=== PATIENT | female | born 1970 | race Caucasian/White ===

== ENCOUNTER 2016-09-23 11:56 | Inpatient (IN) | payer OTHER ==
[~2016-09-23] VITALS: Ht 170.2 cm; Wt 59.4 kg
[~2016-09-23 11:56] MED LIST: /QUET25TA PO; ALBUPOW9 INH; ALBUTEROL NEB INH; ALBUTEROL SULFATE INH; AZIT250T PO; FLU; IBUP600T26 PO; LEVO750T PO; NICO14PA EXT; NICO21DI26 EXT; PAXI20TA3 PO; PAXI40TA2 PO; PERC10TA17 PO; PERC5TAB6 PO; PRED10TA2 PO; PRED20TA PO; PROAAER IN; PROZ10CA7 PO; RISP0.5T23 PO; RISP4TAB33 PO; ROBITUSSIN COLD; SILV-4 TOP; TRAZ50TA2 PO; WELL150T PO; XANA0.25 PO; ZITHTAB PO
[2016-09-23] MEDS ORDERED: ONDANSETRON 4MG/2ML VIAL (J2405) As Ordered ONE ×2 (12:19→16:33)
[2016-09-23 12:44] LABS: MEAN CORPUSCULAR HEMOGLOBIN 33.9 pg (27.0-33.0); MEAN CORPUSCULAR HGB CONC 34.8 g/dl (32.0-36.5); MEAN CORPUSCULAR VOLUME 97.4 fl (80.0-96.0); PLATELET COUNT, AUTOMATED 217 k/mm3 (150-450); RED CELL DISTRIBUTION WIDTH 15.2 % (11.5-14.5); WHITE BLOOD COUNT 1.1 K/mm3 (4.0-10.0)
[2016-09-23 13:00] LABS: ALBUMIN 4.2 GM/DL (3.2-5.2); ALKALINE PHOSPHATASE 80 U/L (45-117); ALT/SGPT 21 U/L (12-78); ANION GAP 10 MEQ/L (8-16); AST/SGOT 10 U/L (15-37); BILIRUBIN,DIRECT 0.2 MG/DL (0.0-0.2); BILIRUBIN,TOTAL 0.8 MG/DL (0.2-1.0); BLOOD UREA NITROGEN 16 MG/DL (7-18); CALCIUM LEVEL 9.1 MG/DL (8.5-10.1); CARBON DIOXIDE LEVEL 26 MEQ/L (21-32); CHLORIDE LEVEL 109 MEQ/L (98-107); CREATININE FOR GFR 0.86 MG/DL (0.55-1.02); GLOMERULAR FILTRATION RATE > 60.0 (>58); GLUCOSE, FASTING 152 MG/DL (70-105); POTASSIUM SERUM 3.5 MEQ/L (3.5-5.1); SODIUM LEVEL 145 MEQ/L (136-145)
[2016-09-23 13:07] LABS: ANISOCYTOSIS 1+; PLATELET CLUMPS SMALL AMT
[2016-09-23] MEDS ORDERED: ALBU17IN INH (17:05)
[2016-09-23] MEDS ORDERED: ADVI200C5 PO (17:05)
[2016-09-23] MEDS ORDERED: PAXI40TA2 PO (17:05)
[2016-09-23] MEDS ORDERED: IBUPROFEN 400 MG TAB PO PRN (17:30)
[2016-09-23] MEDS ORDERED: ALBUTEROL 90 MCG/ACT 8GM HFA INHALER INH PRN (17:30)
--- NOTE | 2016-09-23 18:21 | HPEPDOC ---
General Date of Admission 09-23-2016 Chief Complaint The patient is a 45-year-old female admitted with a reason for visit of N/V. Source: Patient, Family Severity: Severe History of Present Illness Ms Landeros is a 45 y/o female with past medical history of COPD, cervical CA, depression, psoriasis, daily marijuana use and history of crack cocaine use/abuse who presents this afternoon after she states she became nauseous and dizzy acutely while at home. The pt also states that she began having loose stool episodes as well at this time. She states that she had between 5-10 vomiting episodes of bilious vomitus before coming to the ED., she denied passing out or LOC, but said she felt as though the room was spinning. Denies recent travel or change in diet. She denied having any abdominal pain at time of dizziness this afternoon, but admitted to some diffuse achy abdominal pain on bedside exam she attributed to vomiting episodes, and of being very nauseous. The pt did just finish her last round of chemotherapy/radiation one week prior, and is total s/p 5 chemo and 25 radiation treatments. She states that this similar episode occurred about 3 weeks prior. She admits to some muscle aches over the past few days but denies having a fever, admits to waking up sweaty at night as well for the past couple days, but denies any recent sick contacts. Pt sees Breana Carbajal as her PCP. 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 Surgical History cervical biopsy Family History Significant Family History: No pertinent family hx Social History * Smoker: other (smokes marijuana daily) Drugs: denies, cocaine (states has not done cocaine in past 5 years) Recent Travel/Sick Contacts: Denies: Recent sick contacts, Recent travel Social History lives with boyfriend in [facility] history of extensive illicit drug use Review of Symptoms Constitutional: Reports: Fatigue, Lethargy, Malaise, Night Sweats, Denies: Chills, Fever, Weakness, Weight Loss Eyes: Denies: Conjunctivae inflammation, Eyelid inflammation, Pain, Vision change ENT: Denies: Head Aches Skin: Denies: Bruising, Jaundice, Lesions, Rash Pulmonary: Denies: Cough, Dyspnea, Pleuritic Chest Pain Cardiovascular: Reports: Lt Headedness, Denies: Chest Pain, Edema, Orthopnea, Palpitations, Paroxysmal Noc. Dyspnea Gastrointestinal: Reports: Abdominal Pain (diffuse, achy from vomiting the pt states), Diarrhea, Nausea, Vomiting, Denies: Constipation Genitourinary: Denies: Dysuria Neurological: Denies: Change in speech, Confusion, Incoordination, Numbness, Weakness Psych: Reports: Mood Normal Physical Examination General Exam: Positive: Alert, Moderate Distress, Negative: Cooperative (pt does not seem to want to answer questions as feels very sick to her stomach) Eye Exam: Positive: Conjunctiva & lids normal, EOMI, PERRLA, Negative: Ptosis, Sclera icteric ENT Exam: Positive: Atraumatic, Mucous membr. moist/pink, Nares Patent, Pharynx Normal, Tongue Midline, Negative: Pharyngeal Edema Neck Exam: Positive: Supple Chest Exam: Positive: Clear to auscultation, Normal air movement, Negative: Rales, Rhonchi, Wheezing Heart Exam: Positive: Normal S1, Normal S2, Rate Normal, Regular Rhythm Telemetry: Positive: No significant arrhythmia Abdomen Exam: Positive: Normal bowel sounds, Soft, Negative: Hepatospenomegaly, Mass, Tenderness Extremity Exam: Negative: Clubbing, Cyanosis, Edema Skin Exam: Positive: Nl turgor and temperature, Negative: Breakdown, Rash Psych Exam: Positive: Mental status NL Vital Signs BP 122/64 hr 96 rr 20 temp 98.6 F 100% on pulse ox. Laboratory Data Labs 24H Laboratory Tests 2 09/23/16 12:25: Aspartate Amino Transf (AST/SGOT) 10L, Alanine Aminotransferase (ALT/SGPT) 21, Alkaline Phosphatase 80, Total Bilirubin 0.8, Direct Bilirubin 0.2, Albumin 4.2 , Albumin/Globulin Ratio 1.50, Anion Gap 10, Anisocytosis 1+, Atypical Lymphocytes 7H, White Blood Count 1.1L, Red Blood Count 3.62L, Hemoglobin 12.2, Hematocrit 35.2L, Mean Corpuscular Volume 97.4H, Mean Corpuscular Hemoglobin 33.9H, Mean Corpuscular Hemoglobin Concent 34.8, Red Cell Distribution Width 15.2H, Platelet Count 217, Neutrophils (%) (Auto) , Lymphocytes (%) (Auto) , Monocytes (%) (Auto) , Eosinophils (%) (Auto) , Basophils (%) (Auto) , Neutrophils # (Auto) , Lymphocytes # (Auto) , Monocytes # (Auto) , Eosinophils # (Auto) , Basophils # (Auto) , Calcium Level 9.1, Clumped Platelets SMALL AMT, Glomerular Filtration Rate > 60.0, Large Unclassified Cells # , Large Unclassified Cells % , Lymphocytes (Manual) 10L, Neutrophils 83H, Platelet Estimate NORMAL, Total Protein 7.0 CBC/BMP Laboratory Tests 09/23/16 12:25 Red Blood Count 3.62 L, Mean Corpuscular Volume 97.4 H, Mean Corpuscular Hemoglobin 33.9 H, Mean Corpuscular Hemoglobin Concent 34.8, Red Cell Distribution Width 15.2 H, Neutrophils (%) (Auto) , Lymphocytes (%) (Auto) , Monocytes (%) (Auto) , Eosinophils (%) (Auto) , Basophils (%) (Auto) , Neutrophils # (Auto) , Lymphocytes # (Auto) , Monocytes # (Auto) , Eosinophils # (Auto) , Basophils # (Auto) (1) Enteritis Status: Acute Response to Treatment: Stable Assessment & Plan: likely 2/2 viral etiology or radiation/chemotherapy therapy will control pts vomiting with IV zofran pt clear liquids for right now, advance diet as tolerated (2) Leukopenia Status: Acute Response to Treatment: Stable Assessment & Plan: most likely 2/2 cervical cancer treatment continue to monitor no fever documented will obtain blood and urine cx as pt is immunosuppressed from CA treatments (3) Cervical cancer Status: Chronic Response to Treatment: Stable Assessment & Plan: pt. follows with oncology in [facility] is s/p 5 chemotherapy and 25 radiation treatments (4) Vomiting Status: Acute Response to Treatment: Stable Assessment & Plan: pt received IV Zofran in ED, will schedule on floor pt states she feels dry- given hx of diarrhea and vomiting, will begin NS at 100 mL full liquid diet- advance as pt tolerates (5) Depression Status: Chronic Response to Treatment: Stable, Uncontrolled Assessment & Plan: continue pts home medication (6) DVT prophylaxis Status: Acute Assessment & Plan: lovenox Plan / VTE VTE Prophylaxis Ordered?: Yes GME ATTESTATION GME ATTESTATION My preceptor for this patient encounter was physically present in the building during the encounter and was fully available. As needed, all aspects of the patient interview, examination, medical decision making process, and medical care plan development were reviewed and approved by the preceptor. Preceptor is aware and concurs with the plan as stated in the body of this note and will attest to such by his/her cosignature. ATTENDING NOTE I have seen and examined the above patient, and agree with the plan as documented by Dr. Aj. KRISTAN AJ DO Sep 23, 2016 18:21 EDIE PARIS Sep 25, 2016 17:53
[2016-09-23 20:40] VITALS: BP 118/84
--- NOTE | 2016-09-23 20:44 | EDDOCDS ---
Physician Documentation [facility] Name: Debi Landeros Age: 45 yrs Sex: Female : 1970 Arrival Date: 09/23/2016 Time: 11:56 Bed 8 Private MD: Breana Carbajal Disposition: 09/23 16:00 Critical Care: Critical care not applicable. pc Disposition: 09/23/16 16:40 Hospitalization ordered by Deepti Drummond for Inpatient Admission. 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 - Bed requested for 4 Raymond. - Status is Inpatient Admission. ko2 - Condition is Stable. - Problem is new. - Symptoms have improved. - Notes: Return to the ED for any fever over 100.4F HPI: 12:53 This 45 yrs old Female presents to ER via Ambulance with complaints of pc Nausea/Vomiting. 12:53 The history is obtained from the patient. She developed n/v/d late last evening and can pc not keep anything down. She has not taken any of her antiemetic meds she has at home. 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 She has not needed any Neulasta through her treatments. She has not had any fevers or chills, denies Resp or symptoms. At their worst, the symptoms were moderate. In the emergency department, the symptoms are moderate. The patient has not experienced similar symptoms in the past. The patient has been recently seen by an oncologist. Historical: - Allergies: no known allergies; - Home Meds: 1. albuterol sulfate 90 mcg/actuation Inhl HFAA as needed 2. Paxil 40 mg Oral tab 1 tab once daily 3. Advil 200 mg Oral tab 800 mg as needed (Last dose: Unknown) - PMHx: COPD; Crack Cocaine and Marijuana abuse; Depression; Psoriasis; Cancer, Cervix; Cancer, Ovarian- Left; - PSHx: none; - The history from nurses notes was reviewed: and elements of the historical information I have obtained differs from that reported to nursing. - Social history: Smoking status: Patient uses tobacco products, current every day smoker. No barriers to communication noted, The patient speaks fluent Tunisian, Speaks appropriately for age. - : The pt / caregiver states he / she is not on anticoagulants. Home medication list is obtained from the patient. - Hospitalizations: : No recent hospitalization is reported. - Exposure Risk Screening:: None identified. - Immunization history:: All immunizations up-to-date. - Family history: Not pertinent. - Social history:: the patient smokes cigarettes the patient drinks alcohol, the patient uses illicit drugs, including marijuana, cocaine. 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 pc Exam: 12:58 General Appearance: alert, the patient is in mild distress. pc 12:58 EENT: normal eye inspection, ears, nose and throat normal, mucous membranes dry. 12:58 Neck: The exam reveals no acute abnormalities. ROM is normal and painless. No nuchal rigidity is noted.. 12:58 Respiratory: no respiratory distress, normal breath sounds, chest non-tender. 12:58 CVS: regular rhythm, normal S1 and S2, no murmurs, strong peripheral pulses, normal capillary refill, the patient is tachycardic, at 114 bpm. 12:58 Abdomen: soft, no organomegaly, normal bowel sounds, mild tenderness in the right lower quadrant and left lower quadrant, without rebound, voluntary guarding is not appreciated, involuntary guarding is not appreciated. 12:58 Back: normal inspection. 12:58 Skin: skin color is normal, warm, dry. 12:58 Extremities: The extremities have a grossly normal appearance, are non-tender, without acute ROM abnormalities. 12:58 Neuro: oriented x 3, cranial nerves normal as tested, no motor deficits, no sensory deficits. 12:58 Psych: normal mood. Vital Signs: 12:06 BP 122 / 64; Pulse 116; Resp 20; Temp 98.6(TE); Pulse Ox 100% on R/A; Weight 61.23 kg / dsf 134.99 lbs; Height 5 ft. 7 in. (170.18 cm); Pain 7/10; 12:07 BP 122 / 64 (auto/); jf3 12:09 Pulse 106 MON; Pulse Ox 98% ; jf3 12:20 Pulse 102 MON; Pulse Ox 96% ; jf3 12:34 BP 118 / 73 (auto/); jf3 12:49 BP 99 / 61 (auto/); jf3 12:51 Pulse 96 MON; Pulse Ox 93% ; jf3 13:04 BP 100 / 64 (auto/); jf3 13:04 Pulse 94 MON; Pulse Ox 95% ; jf3 13:18 Pulse 100 MON; Pulse Ox 94% ; jf3 13:19 BP 117 / 59 (auto/); jf3 13:23 Pulse 108 MON; Pulse Ox 99% ; jf3 13:34 BP 99 / 54 (auto/); jf3 13:49 BP 97 / 55 (auto/); jf3 13:53 Pulse 100 MON; Pulse Ox 96% ; jf3 13:53 Temp 98.6; jf3 14:04 BP 94 / 53 (auto/); jf3 14:04 Pulse 98 MON; Pulse Ox 94% ; jf3 14:19 BP 97 / 57 (auto/); jf3 14:19 Pulse 98 MON; Pulse Ox 93% ; jf3 14:49 BP 104 / 62 (auto/); jf3 14:49 Pulse 92 MON; Pulse Ox 95% ; jf3 15:18 BP 106 / 65 LA Supine (auto/); Pulse 97; jf3 15:18 BP 103 / 59 LA Sitting (auto/); Pulse 98; jf3 15:18 BP 109 / 63 LA Standing (auto/); Pulse 105; jf3 15:19 BP 111 / 64 (auto/); jf3 15:19 Pulse 90 MON; jf3 15:32 Temp 98.8(O); jf3 15:49 BP 101 / 72 (auto/); jf3 15:49 Pulse 94 MON; jf3 16:00 Temp 98.8(O); jf3 16:19 BP 101 / 59 (auto/); jf3 16:20 Pulse 92 MON; jf3 16:29 BP 143 / 73 (auto/); jf3 16:30 Pulse 86 MON; jf3 16:49 BP 151 / 76 (auto/); jf3 16:50 Pulse 74 MON; Pulse Ox 96% ; jf3 19:44 BP 96 / 54; Pulse 95; Resp 20; Temp 99.0; Pulse Ox 96% ; Pain 5/10; kb5 19:50 BP 114 / 66; kb5 20:02 BP 114 / 66; Pulse 90; Resp 20; Temp 99; Pulse Ox 96% ; Pain 5/10; ko2 12:06 Body Mass Index 21.14 (61.23 kg, 170.18 cm) dsf 15:18 Dr Whitman aware of ortho VS jf3 16:00 Dr Whitman aware jf3 MDM: 12:18 IV Saline Lock ordered. pc 12:18 NS 0.9% 1000 ml IV at bolus once ordered. pc 12:18 Ondansetron 4 mg IVP once ordered. pc 12:18 Stool samples ordered. pc 12:19 CBC with Diff Ordered. EDMS 12:19 MED Profile Ordered. EDMS 12:19 Liver Profile Ordered. EDMS 12:46 DIFFERENTIAL NO CHARGE Ordered. EDMS 12:46 PLATELET ESTIMATE Ordered. EDMS 12:58 Differential Diagnosis: nausea, vomiting and diarrhea; immunocompromised; chronic pain. pc Plan: labs, meds, IVF. 13:00 [facility] Payment Agreement was scanned into [employer] and attached to record. [id number] 13:01 Financial registration complete. dm19 13:30 CBC with Diff Reviewed. pc 13:30 MED Profile Reviewed. pc 13:30 Liver Profile Reviewed. pc 13:30 PLATELET ESTIMATE Reviewed. pc 13:31 Repeat Temperature - Oral: Inform provider of result ordered. pc 13:31 NS 0.9% 1000 ml IV at bolus once ordered. pc 14:05 Data reviewed: The patient's [facility] records were accessed, as they were informed. pc 16:00 Data reviewed: old medical records, vital signs, nurses notes, lab test results. Test pc interpretation: LAB - all labs as ordered have been reviewed, interpreted and considered in the overall management of the clinical presentation;. The patient has been re-examined and re-evaluated. The patient's symptoms have markedly improved after treatment, with no further n/v/d, her pulse is below 100. Physician consultation: Dr. Debbi Denis regarding patient's condition, and advises the medications/treatment as provided. and agrees with the treatment provided and advises the discharge plans as outlined. Disposition: The historical points, examination findings, and any diagnostic results supporting the provided diagnosis, were discussed with the patient or legal guardian. The need for outpatient follow up with the provider listed on their discharge instructions was discussed. They were encouraged to return to [facility], or the nearest ED, if symptoms worsen/persist, or for any other questions/concerns. 16:33 ED course: Despite her vital signs normalizing and she is able to tolerate oral fluids, pc the patient feels she needs to be admitted. The Hospitalist will be contacted. . 16:37 Physician consultation: Dr. Deepti Drummond was contacted at 16:38, regarding pc admission, and will see patient in ED, shortly. Disposition: The historical points, examination findings, and any diagnostic results supporting the provided diagnosis, were discussed with the patient or legal guardian. The need for further work-up and/or treatment in the hospital was explained. 16:43 Ondansetron 4 mg IVP once ordered. pc 16:45 BED REQUEST+ADM ordered. EDMS 17:46 FULL LIQUIDS DIET ordered. EDMS 17:48 BLOOD CULTURES Ordered. EDMS 17:48 GASTROINTESTINAL (GI) PANEL Ordered. EDMS 17:48 URINE CULTURE Ordered. EDMS 18:28 Admission / Observation Status ordered. EDMS 19:32 COMPLETE BLOOD COUNT Ordered. EDMS 19:32 COMPLETE COMPHRENSIVE METABOLI Ordered. EDMS Administered Medications: 12:30 Drug: NS 0.9% 1000 ml [sodium chloride 0.9 % injection solution] Route: IV; Rate: jf3 bolus; Site: right antecubital; 13:53 Follow up: Temp 98.6; IV Status: Completed infusion; IV Intake: 1000ml jf3 12:31 Drug: Ondansetron 4 mg [ondansetron HCl 2 mg/mL intravenous solution (2 mL)] Route: jf3 IVP; Site: right antecubital; 13:53 Follow up: Response: Nausea is decreased jf3 13:53 Drug: NS 0.9% 1000 ml [sodium chloride 0.9 % injection solution] Route: IV; Rate: jf3 bolus; Site: right antecubital; 15:33 Follow up: IV Status: Completed infusion; IV Intake: 1000ml jf3 16:47 Drug: Ondansetron 4 mg [ondansetron HCl 2 mg/mL intravenous solution (2 mL)] Route: jf3 IVP; Site: right antecubital; Signatures: Dispatcher [employer] EDMS Cody Whitman MD MD pc Lopresti, Mary-Elizabeth, Distillation Operator Unit ml3 Regina Almaguer RN RN dsf Afua Courtney RN RN ko2 Charmaine Perez [id number] Suresh Paredes RN jf3 The chart was reviewed and I authenticate all verbal orders and agree with the evaluation and treatment provided.Corrections: (The following items were deleted from the chart) 17:48 17:46 GASTROINTESTINAL (GI) PANEL ordered. EDMS EDMS 18:02 12:19 NOTHING BY MOUTH+DIET ordered. EDMS EDMS 18:02 17:20 CLEAR LIQUID+DIET ordered. EDMS EDMS Attachments: 13:00 [facility] Payment Agreement [email or web address] [email or web address]
--- NOTE | 2016-09-23 20:44 | EDDOCDS ---
Nurse's Notes [facility] Name: Debi Landeros Age: 45 yrs Sex: Female : 1970 Arrival Date: 09/23/2016 Time: 11:56 Bed 8 Private MD: Breana Carbajal Diagnosis: Other viral enteritis;Dehydration;Malignant neoplasm of cervix uteri-metastatic to left ovary;Decreased white blood cell count-without absolute neutropenia, ANC 913 Presentation: 09/23 12:00 Presenting complaint: EMS states: N/V/D and dizziness for the past 12 hours. pt does dsf haver cervical Cancer and did receive her last treatment 1 week ago. Adult Sepsis Screening: Suicide/Homicide risk assessment- the patient denies having any suicidal and/or homicidal ideations and does not present with any other emotional, behavioral or mental health complaints. 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 Transition of care: patient was not received from another setting of care. 12:00 Acuity: MICHELLE Level 3 dsf 12:00 Method Of Arrival: Ambulance dsf 20:22 Adult Sepsis Screening: Patient's respiratory rate is less than 22. Systolic blood ko2 pressure is greater than 100. Patient has a qSOFA score of 0- Negative Sepsis Screen. Triage Assessment: 12:06 General: Appears ill, Behavior is appropriate for age. Pain: Location: abdomen Pain dsf currently is 7 out of 10 on a pain scale. Quality of pain is described as discomfort. HIV screening NA for this visit Offered previously. GI: Pt is actively vomiting clear fluid, Reports diarrhea, nausea, vomiting. Derm: Skin is pale. HOSPICE VOLUNTEER: 12:06 LMP N/A - Post-menopause dsf Historical: - Allergies: no known allergies; - Home Meds: 1. albuterol sulfate 90 mcg/actuation Inhl HFAA as needed 2. Paxil 40 mg Oral tab 1 tab once daily 3. Advil 200 mg Oral tab 800 mg as needed (Last dose: Unknown) - PMHx: COPD; Crack Cocaine and Marijuana abuse; Depression; Psoriasis; Cancer, Cervix; Cancer, Ovarian- Left; - PSHx: none; - The history from nurses notes was reviewed: and elements of the historical information I have obtained differs from that reported to nursing. - Social history: Smoking status: Patient uses tobacco products, current every day smoker. No barriers to communication noted, The patient speaks fluent Belgian, Speaks appropriately for age. - : The pt / caregiver states he / she is not on anticoagulants. Home medication list is obtained from the patient. - Hospitalizations: : No recent hospitalization is reported. - Exposure Risk Screening:: None identified. - Immunization history:: All immunizations up-to-date. - Family history: Not pertinent. - Social history:: the patient smokes cigarettes the patient drinks alcohol, the patient uses illicit drugs, including marijuana, cocaine. Screenin:14 Screening information is obtained from the patient. Fall risk: No risks identified. ko2 Assistance ADL's: requires no assistance with activities of daily living. Abuse/DV Screen: The patient / caregiver reports he/she is: not in a situation that causes fear, pain or injury. Nutritional screening: No deficits noted. Advance Directives: Currently, there is no health care proxy. There is no active DNR order. There is no living will. There is no Power of Manager Continuous Improvement. home support is adequate. Assessment: 12:57 Adult Sepsis Screening: The patient does not have new or worsening altered mentation. jf3 Patient's respiratory rate is less than 22. Systolic blood pressure is greater than 100. Patient has a qSOFA score of 0- Negative Sepsis Screen. General: Appears ill, Behavior is cooperative, quiet. Pain: Location: abdomen. Neurological: Level of Consciousness is awake, alert, Oriented to person, place, time. Cardiovascular: Capillary refill < 3 seconds Heart tones S1 S2 present Chest pain is denied. Respiratory: Airway is patent Respiratory effort is even, unlabored, Respiratory pattern is regular, symmetrical, Breath sounds are clear bilaterally. GI: Abdomen is non- distended Bowel sounds present X 4 quads. Abd is soft X 4 quads Abd is tender to palpation X 4 quads. Derm: Skin is pale. 14:00 General: Appears ill, Behavior is cooperative, pt states she is feeling much better at jf3 this time. does not feel need to have BM. Neurological: Level of Consciousness is awake, alert, Oriented to person, place, time. Cardiovascular: Capillary refill < 3 seconds Chest pain is denied. Respiratory: Airway is patent Respiratory effort is even, unlabored, Respiratory pattern is regular, symmetrical, Denies shortness of breath. Derm: Skin is pale. 15:00 General: Appears in no apparent distress, comfortable, Behavior is cooperative. jf3 General: Pt states she is feeling much better and feels like she could go home. Nausea decreased. Skin color improved. Pt denies dizziness/light headed-ness. Neurological: Level of Consciousness is awake, alert, Oriented to person, place, time. 16:00 General: Appears in no apparent distress, comfortable, Behavior is cooperative. jf3 Respiratory: Airway is patent Respiratory effort is even, unlabored, Respiratory pattern is regular, symmetrical. 16:49 General: Appears ill, Pt up to bedside commode, states feeling nauseous, sweaty, and jf3 "just like I did when I came in", Dr Whitman made aware. Pt states she wants to be admitted and that if she goes home she is likely to return due to not feeling well. Pain: Location: abdomen Pain currently is 8 out of 10 on a pain scale. Neurological: Level of Consciousness is awake, alert, Oriented to person, place, time. Cardiovascular: Capillary refill < 3 seconds. Respiratory: Airway is patent Respiratory effort is even, unlabored, Respiratory pattern is regular, symmetrical. Derm: Skin is clammy. 18:00 General: Appears ill, Pt resting supine on stretcher. Still states does not feel well. jf3 Pt clammy and nauseous. SO at bedside. respirations easy and unlabored. call light in reach. Will continue top monitor . 19:13 General: Appears in no apparent distress, comfortable, Behavior is cooperative. Pain: ko2 Location: right lower quadrant Pain currently is 4 out of 10 on a pain scale. Neurological: No deficits noted. Respiratory: Airway is patent Respiratory effort is even, unlabored, Respiratory pattern is regular, symmetrical. Derm: Skin is pale. 20:21 General: Appears in no apparent distress, comfortable, Behavior is cooperative. ko2 Neurological: Level of Consciousness is awake, alert, Oriented to person, place, time. Respiratory: Airway is patent Respiratory effort is even, unlabored. Derm: Skin is pale. Vital Signs: 12:06 BP 122 / 64; Pulse 116; Resp 20; Temp 98.6(TE); Pulse Ox 100% on R/A; Weight 61.23 kg; dsf Height 5 ft. 7 in. (170.18 cm); Pain 03/26; 12:07 BP 122 / 64 (auto/); jf3 12:09 Pulse 106 MON; Pulse Ox 98% ; jf3 12:20 Pulse 102 MON; Pulse Ox 96% ; jf3 12:34 BP 118 / 73 (auto/); jf3 12:49 BP 99 / 61 (auto/); jf3 12:51 Pulse 96 MON; Pulse Ox 93% ; jf3 13:04 BP 100 / 64 (auto/); jf3 13:04 Pulse 94 MON; Pulse Ox 95% ; jf3 13:18 Pulse 100 MON; Pulse Ox 94% ; jf3 13:19 BP 117 / 59 (auto/); jf3 13:23 Pulse 108 MON; Pulse Ox 99% ; jf3 13:34 BP 99 / 54 (auto/); jf3 13:49 BP 97 / 55 (auto/); jf3 13:53 Pulse 100 MON; Pulse Ox 96% ; jf3 13:53 Temp 98.6; jf3 14:04 BP 94 / 53 (auto/); jf3 14:04 Pulse 98 MON; Pulse Ox 94% ; jf3 14:19 BP 97 / 57 (auto/); jf3 14:19 Pulse 98 MON; Pulse Ox 93% ; jf3 14:49 BP 104 / 62 (auto/); jf3 14:49 Pulse 92 MON; Pulse Ox 95% ; jf3 15:18 BP 106 / 65 LA Supine (auto/); Pulse 97; jf3 15:18 BP 103 / 59 LA Sitting (auto/); Pulse 98; jf3 15:18 BP 109 / 63 LA Standing (auto/); Pulse 105; jf3 15:19 BP 111 / 64 (auto/); jf3 15:19 Pulse 90 MON; jf3 15:32 Temp 98.8(O); jf3 15:49 BP 101 / 72 (auto/); jf3 15:49 Pulse 94 MON; jf3 16:00 Temp 98.8(O); jf3 16:19 BP 101 / 59 (auto/); jf3 16:20 Pulse 92 MON; jf3 16:29 BP 143 / 73 (auto/); jf3 16:30 Pulse 86 MON; jf3 16:49 BP 151 / 76 (auto/); jf3 16:50 Pulse 74 MON; Pulse Ox 96% ; jf3 19:44 BP 96 / 54; Pulse 95; Resp 20; Temp 99.0; Pulse Ox 96% ; Pain 5/10; kb5 19:50 BP 114 / 66; kb5 20:02 BP 114 / 66; Pulse 90; Resp 20; Temp 99; Pulse Ox 96% ; Pain 5/10; ko2 12:06 Body Mass Index 21.14 (61.23 kg, 170.18 cm) dsf 15:18 Dr Whitman aware of ortho VS jf3 16:00 Dr Whitman aware jf3 Vitals: 12:06 Log In Time N/A - ambulance arrival. dsf ED Course: 11:57 Patient visited by Luz Alberts PCA. ar3 11:57 Patient moved to Waiting ar3 11:58 Michael Hammer, TESS is Primary Nurse. ar3 11:58 Breana Carbajal is Private Physician. ar3 11:58 Patient moved to 8 ar3 12:01 Triage Initiated dsf 12:09 Patient visited by Gricelda Perales PCA. ct3 12:09 Cody Whitman MD is Attending Physician. pc 12:09 Patient has correct armband on for positive identification. Placed in gown. Bed in low ct3 position. Call light in reach. Side rails up X2. flower arranger on. Pulse ox on. NIBP on. 12:16 Patient visited by Cody Whitman MD. pc 12:57 The patient / caregiver is instructed regarding the plan of care and ED course. jf3 12:57 Inserted saline lock: 20 gauge in right antecubital area The patient tolerated the jf3 procedure well. No procedures done that require assistance. 12:59 Patient visited by Suresh Paredes RN. jf3 13:00 [facility] Payment Agreement was scanned into [employer] and attached to record. [id number] 13:18 DIFFERENTIAL NO CHARGE Sent. ar3 13:59 Patient visited by Cody Whitman MD. pc 14:34 Patient visited by Ozzy Clayton. dem1 14:34 Cleaned of incontinence. Linen changed. dem1 15:11 Patient visited by Gricelda Perales PCA. ct3 15:21 Patient visited by Suresh Paredes RN. jf3 15:33 Patient visited by Suresh Paredes RN. jf3 16:03 Lorene Rivers is Referral Physician. pc 16:40 Abram Drummond is Hospitalizing Provider. pc 16:40 Hospitalizing Provider role handed off by Abram Drummond pc 16:40 Deepti Drummond is Hospitalizing Provider. pc 16:51 Patient visited by Suresh Paredes RN. jf3 18:29 Patient visited by Gricelda Perales, TEACHER OF THE HANDICAPPED. ct3 18:29 Diet: liquid diet given to patient . ct3 18:56 Afua Courtney,TESS is Primary Nurse. ko2 19:05 Patient visited by Fortino Samuels, ITZ. kb5 19:13 Patient visited by Afua Courtney RN. ko2 20:04 Primary Nurse role handed off by Michael Hammer RN jmv Administered Medications: 12:30 Drug: NS 0.9% 1000 ml [sodium chloride 0.9 % injection solution] Route: IV; Rate: jf3 bolus; Site: right antecubital; 13:53 Follow up: Temp 98.6; IV Status: Completed infusion; IV Intake: 1000ml jf3 12:31 Drug: Ondansetron 4 mg [ondansetron HCl 2 mg/mL intravenous solution (2 mL)] Route: jf3 IVP; Site: right antecubital; 13:53 Follow up: Response: Nausea is decreased jf3 13:53 Drug: NS 0.9% 1000 ml [sodium chloride 0.9 % injection solution] Route: IV; Rate: jf3 bolus; Site: right antecubital; 15:33 Follow up: IV Status: Completed infusion; IV Intake: 1000ml jf3 16:47 Drug: Ondansetron 4 mg [ondansetron HCl 2 mg/mL intravenous solution (2 mL)] Route: jf3 IVP; Site: right antecubital; Intake: 13:53 IV: 1000.00ml; Total: 1000.00ml. jf3 15:33 IV: 1000.00ml; Total: 2000.00ml. jf3 Order Results: Lab Order: CBC with Diff; SPEC'M 09/23/16 12:25 Test: WHITE BLOOD COUNT; Value: 1.1; Range: 4.0-10.0; Abnormal: Below low normal; Units: K/mm3; Status: F Test: RED BLOOD COUNT; Value: 3.62; Range: 4.00-5.40; Abnormal: Below low normal; Units: M/mm3; Status: F Test: HEMOGLOBIN; Value: 12.2; Range: 12.0-16.0; Units: g/dl; Status: F Test: HEMATOCRIT; Value: 35.2; Range: 36.0-47.0; Abnormal: Below low normal; Units: %; Status: F Test: MEAN CORPUSCULAR VOLUME; Value: 97.4; Range: 80.0-96.0; Abnormal: Above high normal; Units: fl; Status: F Test: MEAN CORPUSCULAR HEMOGLOBIN; Value: 33.9; Range: 27.0-33.0; Abnormal: Above high normal; Units: pg; Status: F Test: MEAN CORPUSCULAR HGB CONC; Value: 34.8; Range: 32.0-36.5; Units: g/dl; Status: F Test: RED CELL DISTRIBUTION WIDTH; Value: 15.2; Range: 11.5-14.5; Abnormal: Above high normal; Units: %; Status: F Test: PLATELET COUNT, AUTOMATED; Value: 217; Range: 150-450; Units: k/mm3; Status: F Test: NEUTROPHILS; Value: 83; Range: 35-75; Abnormal: Above high normal; Units: %; Status: F Test: LYMPHOCYTES; Value: 10; Range: 16-52; Abnormal: Below low normal; Units: %; Status: F Test: ATYPICAL LYMPH; Value: 7; Range: 0-5; Abnormal: Above high normal; Units: %; Status: F Test: ANISOCYTOSIS; Value: 1+; Status: F Test: PLATELET CLUMPS; Value: SMALL AMT; Status: F Lab Order: MED Profile; [facility] 09/23/16 12:25 Test: GLUCOSE, FASTING; Value: 152; Range: 70-105; Abnormal: Above high normal; Units: MG/DL; Status: F Test: BLOOD UREA NITROGEN; Value: 16; Range: 7-18; Units: MG/DL; Status: F Test: CREATININE FOR GFR; Value: 0.86; Range: 0.55-1.02; Units: MG/DL; Status: F Test: GLOMERULAR FILTRATION RATE; Value: > 60.0; Range: >58; Status: F Test: SODIUM LEVEL; Value: 145; Range: 136-145; Units: MEQ/L; Status: F Test: POTASSIUM SERUM; Value: 3.5; Range: 3.5-5.1; Units: MEQ/L; Status: F Test: CHLORIDE LEVEL; Value: 109; Range: 98-107; Abnormal: Above high normal; Units: MEQ/L; Status: F Test: CARBON DIOXIDE LEVEL; Value: 26; Range: 21-32; Units: MEQ/L; Status: F Test: ANION GAP; Value: 10; Range: 8-16; Units: MEQ/L; Status: F Test: CALCIUM LEVEL; Value: 9.1; Range: 8.5-10.1; Units: MG/DL; Status: F Test Note: ; Units are mL/min/1.73 m2 Chronic Kidney Disease Staging per NKF: Stage I & II GFR >=60 Normal to Mildly Decreased Stage III GFR 30-59 Moderately Decreased Stage IV GFR 15-29 Severely Decreased Stage V GFR <15 Very Little GFR Left ESRD GFR <15 on EMPLOYEE SERVICE OFFICER Lab Order: Liver Profile; SPEC'M 09/23/16 12:25 Test: AST/SGOT; Value: 10; Range: 15-37; Abnormal: Below low normal; Units: U/L; Status: F Test: ALT/SGPT; Value: 21; Range: 12-78; Units: U/L; Status: F Test: ALKALINE PHOSPHATASE; Value: 80; Range: 45-117; Units: U/L; Status: F Test: BILIRUBIN,TOTAL; Value: 0.8; Range: 0.2-1.0; Units: MG/DL; Status: F Test: BILIRUBIN,DIRECT; Value: 0.2; Range: 0.0-0.2; Units: MG/DL; Status: F Test: TOTAL PROTEIN; Value: 7.0; Range: 6.4-8.2; Units: GM/DL; Status: F Test: ALBUMIN; Value: 4.2; Range: 3.2-5.2; Units: GM/DL; Status: F Test: ALBUMIN/GLOBULIN RATIO; Value: 1.50; Range: 1.00-1.93; Status: F Lab Order: PLATELET ESTIMATE; SPEC'M 09/23/16 12:25 Test: PLATELET ESTIMATE; Value: NORMAL; Range: NORMAL; Status: F Outcome: 16:03 Discharge ordered by Provider. pc 16:40 Decision to Hospitalize by Provider. pc 20:23 Discharge Assessment: Patient awake, alert and oriented x 3. No cognitive and/or ko2 functional deficits noted. Patient verbalized understanding of disposition instructions. The following High Risk Discharge criteria are identified: None. Admitted to Med/Surg accompanied by tech, via stretcher, with chart. Condition: stable. Admission hand-off: Report Faxed Fax receipt verified by [facility]. Property :Personal belongings accompany Pt. 20:31 Discharge Assessment: patient administered narcotics - no. No special radiology studies cp1 were completed. 20:43 Patient left the ED. ko2 Signatures: Cody Whitman MD MD pc Fortino Samuels, TEACHER OF THE HANDICAPPED TEACHER OF THE HANDICAPPED kb5 Luz Alberts, TEACHER OF THE HANDICAPPED TEACHER OF THE HANDICAPPED ar3 Megan Blake,TRANSIT OPERATIONS SUPERVISOR TRANSIT OPERATIONS SUPERVISOR cp1 Gricelda Perales, TEACHER OF THE HANDICAPPED TEACHER OF THE HANDICAPPED ct3 Regina Almaguer RN RN dsf Ozzy Clayton dem1 Afua Courtney RN RN ko2 Suresh Paredes RN RN jf3 Derick Bettencourt, TEACHER OF THE HANDICAPPED TEACHER OF THE HANDICAPPED jmv Charmaine Perez [id number] Corrections: (The following items were deleted from the chart) 12:05 12:00 Presenting complaint: EMS states: N/V/D and dizziness for the past 12 hours. pt dsf does haver cervical Cancer and is receiving chemotherapy. Last treatment was 1 week ago dsf MTDD
[2016-09-23] MEDS: ONDANSETRON 4MG/2ML VIAL (J2405) IV SCH (20:50)
[2016-09-23] MEDS: PARoxetine 20 MG TAB PO SCH (20:50)
[2016-09-23] MEDS: NS 1,000 ML IV SCH (20:50)
[2016-09-23] MEDS: NICOTINE 21MG/24HR 1 EA TRANSDERMAL TD PRN (22:40)
[2016-09-24] MEDS: ONDANSETRON 4MG/2ML VIAL (J2405) IV SCH ×6 (00:19→21:01)
[2016-09-24] MEDS: NS 1,000 ML IV SCH ×2 (04:50→14:46)
[2016-09-24 05:20] VITALS: BP 163/81
[2016-09-24 06:23] LABS: MEAN CORPUSCULAR HEMOGLOBIN 34.4 pg (27.0-33.0); MEAN CORPUSCULAR HGB CONC 34.6 g/dl (32.0-36.5); MEAN CORPUSCULAR VOLUME 99.5 fl (80.0-96.0); RED CELL DISTRIBUTION WIDTH 16.7 % (11.5-14.5); WHITE BLOOD COUNT 5.5 K/mm3 (4.0-10.0)
[2016-09-24 06:40] LABS: ALBUMIN 3.5 GM/DL (3.2-5.2); ALBUMIN/GLOBULIN RATIO 1.46 (1.00-1.93); ALKALINE PHOSPHATASE 64 U/L (45-117); ALT/SGPT 19 U/L (12-78); ANION GAP 13 MEQ/L (8-16); AST/SGOT 13 U/L (15-37); BILIRUBIN,TOTAL 0.8 MG/DL (0.2-1.0); BLOOD UREA NITROGEN 16 MG/DL (7-18); CALCIUM LEVEL 8.3 MG/DL (8.5-10.1); CARBON DIOXIDE LEVEL 23 MEQ/L (21-32); CHLORIDE LEVEL 110 MEQ/L (98-107); CREATININE FOR GFR 0.78 MG/DL (0.55-1.02); GLOMERULAR FILTRATION RATE > 60.0 (>58); GLUCOSE, FASTING 138 MG/DL (70-105); POTASSIUM SERUM 3.3 MEQ/L (3.5-5.1); SODIUM LEVEL 146 MEQ/L (136-145); TOTAL PROTEIN 5.9 GM/DL (6.4-8.2)
[2016-09-24] MEDS: ENOXAPARIN 40 MG/0.4 ML SYRINGE (J1650) SC SCH (08:29)
[2016-09-24 14:00] VITALS: BP 127/67
[2016-09-24] MEDS: ACETAMINOPHEN TAB 650MG DOSE (2X325MG) PO PRN (14:45)
--- NOTE | 2016-09-24 16:10 | REP ---
Chest x-ray: Two views. History: Fever. Comparison chest x-rays from October 14, 2015. Findings: The lungs are well inflated and clear. Pleural angles are sharp. Heart size is normal. Pulmonary vasculature is not increased. No significant bony abnormality is seen. Impression: Negative chest x-ray. Signed by Hernando Banks MD 09/24/2016 04:02 P
[2016-09-24] MEDS: KCL 10MEQ IN D5/0.45NS 1000ML 1,000 ML IV SCH (16:27)
[2016-09-24] MEDS: CEFEPIME HCL 2 GM in D5W MINI-BAG PLUS 50 ML IV SCH (18:08)
[2016-09-24] MEDS: PARoxetine 20 MG TAB PO SCH ×2 (21:00→21:02)
[2016-09-24 22:00] VITALS: BP 126/62
[2016-09-25] MEDS: ONDANSETRON 4MG/2ML VIAL (J2405) IV SCH ×6 (01:17→20:27)
[2016-09-25] MEDS: KCL 10MEQ IN D5/0.45NS 1000ML 1,000 ML IV SCH (01:57)
[2016-09-25] MEDS: CEFEPIME HCL 2 GM in D5W MINI-BAG PLUS 50 ML IV SCH ×2 (05:49→17:05)
[2016-09-25 06:00] VITALS: BP 115/66
[2016-09-25 06:45] LABS: MEAN CORPUSCULAR HEMOGLOBIN 35.3 pg (27.0-33.0); MEAN CORPUSCULAR VOLUME 96.4 fl (80.0-96.0); RED CELL DISTRIBUTION WIDTH 15.3 % (11.5-14.5); WHITE BLOOD COUNT 4.3 K/mm3 (4.0-10.0)
[2016-09-25 06:48] LABS: MEAN CORPUSCULAR HGB CONC 36.2 g/dl (32.0-36.5)
[2016-09-25 07:07] LABS: ALBUMIN 2.8 GM/DL (3.2-5.2); ALBUMIN/GLOBULIN RATIO 1.04 (1.00-1.93); ALKALINE PHOSPHATASE 60 U/L (45-117); ALT/SGPT 20 U/L (12-78); ANION GAP 11 MEQ/L (8-16); AST/SGOT 15 U/L (15-37); BILIRUBIN,TOTAL 0.6 MG/DL (0.2-1.0); BLOOD UREA NITROGEN 10 MG/DL (7-18); CALCIUM LEVEL 7.7 MG/DL (8.5-10.1); CARBON DIOXIDE LEVEL 25 MEQ/L (21-32); CHLORIDE LEVEL 106 MEQ/L (98-107); CREATININE FOR GFR 0.66 MG/DL (0.55-1.02); GLOMERULAR FILTRATION RATE > 60.0 (>58); GLUCOSE, FASTING 110 MG/DL (70-105); SODIUM LEVEL 142 MEQ/L (136-145); TOTAL PROTEIN 5.5 GM/DL (6.4-8.2)
[2016-09-25] MEDS: ENOXAPARIN 40 MG/0.4 ML SYRINGE (J1650) SC SCH (09:25)
--- NOTE | 2016-09-25 09:55 | IPN ---
DATE: 09/24/2016 Ms. Landeros is feeling tired and sick this morning when I see her. No complaints of abdominal pain, no chest pain. Would like to try some bread. Unfortunately she has gone on to develop fever to 101.9. Most recent pulse 86, respirations 18, blood pressure 127/67, 99% on room air. Input and output notable for positive fluid balance of 540. One bowel movement thus far today. She is awake, appropriately interactive, pleasantly conversant. Breathing is symmetrical, rested. No wheezes, rales or rhonchi. Heart: Regular rate and rhythm, is not tachycardic. Abdomen: Soft, doughy, nontender. Hypoactive bowel sounds. Significant lower extremity edema. White cell count 5.5 up from 1.1, hemoglobin 9.8, platelets 155. BUN 16, creatinine 0.78, sodium 146, potassium 3.3. This is a 45-year-old with fever of unknown origin in setting of immunocompromise related to chemotherapy. PLAN: 1. Patient has been followed for enteritis. No abdominal pain on exam. Will check lipase. Will check stool studies should they become available. Patient's leukopenia has improved although I am still concerned about the possibility of immunocompromise. Will start broad spectrum antibiotics, blood cultures, chest x-ray, urinalysis and urine culture. 2. Patient has cervical cancer, followed with radiation oncology and oncology in [place]. 3. Patient has hypernatremia and hyperkalemia. Will change IV fluids but will continue those at this time. 4. Will continue her Lovenox as well.
[2016-09-25] MEDS ORDERED: KCL 10MEQ IN 100ML SWI (KRUN) 10 MEQ in APPROPRIATE DILUENT 1 EA IV ONE ×2 (12:30)
[2016-09-25] MEDS: KCL 20MEQ IN D5/NS 1000ML 1,000 ML IV SCH ×2 (12:49→22:37)
[2016-09-25] MEDS ORDERED: GASTROGRAFIN SOLUTION 30ML PO ONE (13:15)
[2016-09-25] MEDS ORDERED: GASTROGRAFIN SOLUTION 30ML (Q9963) PO ONE (13:45)
[2016-09-25 14:00] VITALS: BP 123/73
--- NOTE | 2016-09-25 14:04 | IPNPDOC ---
Progress Note This note was created in the EMR by mistake, please disregard MAKEDA MATA DO Sep 25, 2016 14:04 Subjective: Mrs. Condon was visited at the bedside this morning. She continues to complain of a headache, however she states that it was significantly improved after the administration of sumatriptan and antinausea medication this morning. Otherwise, she has no focal complaint. She does mention that she has not had a bowel movement in several days, however, she has not had a very good appetite over the past few days either. Objective: General: Awake, alert, oriented 3. She is in no acute distress at this time. She is sitting upright on the edge of the bed, and pleasant to speak with. HEENT: Head normocephalic, atraumatic, sclera are nonicteric. Hearing is grossly intact to conversation. Respiratory: Clear to auscultation bilaterally with no wheezes, rales, or rhonchi. Cardiovascular: Regular rate and rhythm, with no rubs, gallops, or murmur. Abdomen: Soft, nontender, nondistended, no hepatosplenomegaly appreciated. Bowel sounds present. Extremities: 2+ pulses in the radial and dorsalis pedis bilaterally. She did stub her toe yesterday, there is a small bit of blood on the medial aspect of the tip of her great toe on the left foot. Assessment/Plan: 1. Hypertensive emergency. Pressures continue to be elevated, however they are slowly trending downward with the administration of lisinopril, amlodipine, hydrochlorothiazide, and clonidine. To determine if this is a secondary hypertension, a renal ultrasound with Doppler flow, an echocardiogram, and a nocturnal pulse oximetry will be performed. 2. History of previous right thalamic and pontine lacunar infarcts. Likely secondary to poorly controlled blood pressure over a long period of time 3. Visual disturbance of the right eye. Seen by ophthalmology Dr. Smith, who felt that this was secondary to chronic diabetic changes, she will follow-up with him as an outpatient. 4. Poorly controlled insulin-dependent diabetes mellitus type 2. We will increase her Levemir to 15 units twice a day today, and continue to monitor 5. Chronic left foot pain, with bilateral congenital foot deformities. Well controlled at this time, she did stub her toe yesterday, however it did not hurt , we will continue to monitor. 6. Chronic kidney disease stage III. She is most likely at her baseline renal function. 7. DVT prophylaxis with Lovenox My preceptor for this patient encounter was physically present in the building during the encounter and was fully available. As needed, all aspects of the patient interview, examination, medical decision making process, and medical care plan development were reviewed and approved by the preceptor. Preceptor is aware and concurs with the plan as stated in the body of this note and will attest to such by his/her cosignature. VS, I&O, 24H, Fishbone VS, I&O, 24H, Fishbone Vital Signs Date Time Temp Pulse Resp B/P Pulse Ox O2 Delivery O2 Flow Rate FiO2 09/25/16 06:00 99.8 84 19 115/66 95 Room Air I&O- Last 24 Hours up to 6 AM 09/25/16 06:00 Intake Total 3700 ml Output Total 0 ml Balance 3700 ml Laboratory Tests 2 09/24/16 16:24: Lipase 78 09/24/16 18:16: Urine Amorphous Sediment , Urine Appearance CLOUDYH, Urine Color YELLOW, Urine pH 6.0, Urine Specific [place] 1.015, Urine Protein 2+H, Urine Glucose (UA) NEGATIVE, Urine Ketones NEGATIVE, Urine Urobilinogen 2.0H, Urine Bilirubin NEGATIVE, Urine Leukocyte Esterase 3+H, Urine Bacteria (Auto) 3+H, Urine Blood 2 +H, Urine Calcium Carbonate Cryst(Auto) , Urine Calcium Oxalate Cryst (Auto) , Urine Calcium Phosphate Cait (Auto) , Urine Cellular Casts , Urine Cystine Crystals , Urine Granular Casts (Auto) , Urine Hyaline Casts (Auto) 0, Urine Leucine Crystals , Urine Mucus (Auto) SMALL, Urine Nitrite POSITIVE, Urine Oval Fat Bodies (Auto) , Urine RBC (Auto) 38H, Urine Renal Epithelial Cells , Urine Sperm (Auto) , Urine Squamous Epithelial Cells 1, Urine Transitional Epithelial Cells , Urine Trichomonas (Auto) , Urine Triple Phosphate Cryst (Auto) , Urine Tyrosine Crystals , Urine Uric Acid Crystals (Auto) , Urine WBC (Auto) TNTCH, Urine Waxy Casts (Auto) , Urine Yeast-Like Cells (Auto) 09/25/16 06:16: Blood Urea Nitrogen 10, Creatinine 0.66, Sodium Level 142, Potassium Level 3.0L , Chloride Level 106, Carbon Dioxide Level 25, Calcium Level 7.7L, Aspartate Amino Transf (AST/SGOT) 15, Alanine Aminotransferase (ALT/SGPT) 20, Alkaline Phosphatase 60, Total Bilirubin 0.6, Total Protein 5.5L, Albumin 2.8L, Albumin/ Globulin Ratio 1.04, Anion Gap 11, Glomerular Filtration Rate > 60.0 Laboratory Tests 09/25/16 06:16 Calcium Level 7.7 L, Aspartate Amino Transf (AST/SGOT) 15, Alanine Aminotransferase (ALT/SGPT) 20, Alkaline Phosphatase 60, Total Bilirubin 0.6, Total Protein 5.5 L, Albumin 2.8 L, Red Blood Count 2.49 L, Mean Corpuscular Volume 96.4 H, Mean Corpuscular Hemoglobin 35.3 H, Mean Corpuscular Hemoglobin Concent 36.2, Red Cell Distribution Width 15.3 H Microbiology 09/24/16 Blood Culture - Preliminary, Resulted 09/24/16 Blood Culture - Preliminary, Resulted 09/23/16 Blood Culture - Preliminary, Resulted No growth after 24 hours . All specim... 09/24/16 Influenza Virus Type A Antigen - Final, Complete 09/24/16 Influenza Virus Type B Antigen - Final, Complete 09/24/16 Urine Culture, Received Pending MAKEDA MATA DO Sep 25, 2016 14:04
[2016-09-25] MEDS ORDERED: ISOVUE-370 76% 100ML VIAL (Q9967) As Ordered ONE (15:18)
[2016-09-25] MEDS: ACETAMINOPHEN TAB 650MG DOSE (2X325MG) PO PRN (17:05)
--- NOTE | 2016-09-25 17:32 | IPN ---
DATE: 09/25/2016 Ms. Landeros is tired this morning complaining of some abdominal pain, worse on the left side, she describes left-sided flank pain that radiates somewhat forward. She has been febrile overnight. Is nauseous, has not been tolerating fluids. VITAL SIGNS: Temperature is 99.8, pulse 84, respiratory rate 19, blood pressure 115/66, 95% on room air. T-max is 101.9. Ins Outs notable for a positive fluid balance of 2880. One bowel movement noted yesterday. Is awake, appropriately interactive but appears tired. Is engaged in conversation. Mucous membranes are tacky. Neck: Is supple. Breathing is symmetrical. Somewhat diminished throughput. Heart: Regular rate and rhythm. Is not tachycardiac. Abdomen: Is soft, doughy with some left-sided costovertebral angle and flank tenderness. LABORATORY DATA: White cell count 4.3, hemoglobin 8.8. Platelets of 131, sodium 143, potassium 3.0, chloride 106, bicarbonate 25, BUN 10, creatinine 0.66, with a glucose of 110. CT of the abdomen and pelvis was done and preliminary shows free fluid into the pelvis, gallbladder wall thickening, mild left hydro, 1.4 cm left upper pole renal lesion. This does not appear on a previous image. I asked the environmental remediation specialist urologist to review the images. MY ASSESSMENT IS FOLLOWS: 45-year-old with fever of unknown origin which may be related to left-sided pyelo in the setting of immunocompromise related to chemotherapy. PLAN IS FOLLOWS: 1. Infectious disease. Patient has been followed for enteritis. Now has positive blood cultures showing gram negative rods, is on appropriate therapy. There is suggestion of possible hydroureter on the left. Will review findings of the CT scan with the covering urologist. 2. Patient has cervical cancer. Follows with radiology and oncology in [place]. Is currently on therapy. 3. Patient has had continued hypokalemia which we are repleting. 4. Hypernatremia has resolved. 5. Patient has developing anemia. It is unclear the cause. She has no obvious source of bleeding. I have obtained informed consent from the patient to give blood transfusion should that become necessary.
[2016-09-25] MEDS: PARoxetine 20 MG TAB PO SCH (20:27)
[2016-09-26] VITALS (8 sets, daily range): BP systolic 110–141; BP diastolic 57–80
[2016-09-26] MEDS: ONDANSETRON 4MG/2ML VIAL (J2405) IV SCH ×6 (00:05→20:23)
[2016-09-26] MEDS: KCL 20MEQ IN D5/NS 1000ML 1,000 ML IV SCH ×2 (01:58→17:17)
[2016-09-26] MEDS: CEFEPIME HCL 2 GM in D5W MINI-BAG PLUS 50 ML IV SCH ×2 (05:12→17:17)
[2016-09-26 06:53] LABS: INR 1.24
[2016-09-26 06:56] LABS: MEAN CORPUSCULAR HEMOGLOBIN 35.3 pg (27.0-33.0); MEAN CORPUSCULAR HGB CONC 36.3 g/dl (32.0-36.5); MEAN CORPUSCULAR VOLUME 97.1 fl (80.0-96.0)
[2016-09-26 07:07] LABS: ALBUMIN 2.6 GM/DL (3.2-5.2); ALKALINE PHOSPHATASE 71 U/L (45-117); ALT/SGPT 19 U/L (12-78); ANION GAP 9 MEQ/L (8-16); AST/SGOT 14 U/L (15-37); BILIRUBIN,TOTAL 0.6 MG/DL (0.2-1.0); BLOOD UREA NITROGEN 8 MG/DL (7-18); CALCIUM LEVEL 7.8 MG/DL (8.5-10.1); CARBON DIOXIDE LEVEL 26 MEQ/L (21-32); CHLORIDE LEVEL 108 MEQ/L (98-107); CREATININE FOR GFR 0.65 MG/DL (0.55-1.02); GLOMERULAR FILTRATION RATE > 60.0 (>58); GLUCOSE, FASTING 118 MG/DL (70-105); SODIUM LEVEL 143 MEQ/L (136-145); TOTAL PROTEIN 5.5 GM/DL (6.4-8.2)
[2016-09-26] MEDS: KCL 10MEQ IN 100ML SWI (KRUN) 10 MEQ in APPROPRIATE DILUENT 1 EA IV SCH ×4 (08:40→13:39)
[2016-09-26] MEDS ORDERED: fentaNYL 100 MCG/2 ML INJECTION (J3010) As Ordered ONE (09:37)
[2016-09-26] MEDS ORDERED: MIDAZOLAM INJ 2 MG/2 ML VIAL (J2250) As Ordered ONE (09:37)
[2016-09-26 10:04] LABS: MAGNESIUM LEVEL 1.7 MG/DL (1.8-2.4)
[2016-09-26] MEDS ORDERED: LIDOCAINE 2% MDV 20 ML VIAL As Ordered ONE (10:45)
[2016-09-26] MEDS ORDERED: ISOVUE-300 61% 50ML VIAL (Q9967) As Ordered ONE (10:45)
--- NOTE | 2016-09-26 11:40 | EDDOCDS ---
Physician Documentation [facility] Name: Debi Landeros Age: 45 yrs Sex: Female : 1970 Arrival Date: 09/23/2016 Time: 11:56 Bed 8 Private MD: Breana Carbajal Disposition: 09/23 16:00 Critical Care: Critical care not applicable. pc Disposition: 09/23/16 16:40 Hospitalization ordered by Deepti Drummond for Inpatient Admission. 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 - Bed requested for 4 [place]. - Status is Inpatient Admission. ko2 - Condition is Stable. - Problem is new. - Symptoms have improved. - Notes: Return to the ED for any fever over 100.4F HPI: 12:53 This 45 yrs old Female presents to ER via Ambulance with complaints of pc Nausea/Vomiting. 12:53 The history is obtained from the patient. She developed n/v/d late last evening and can pc not keep anything down. She has not taken any of her antiemetic meds she has at home. 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 She has not needed any Neulasta through her treatments. She has not had any fevers or chills, denies Resp or symptoms. At their worst, the symptoms were moderate. In the emergency department, the symptoms are moderate. The patient has not experienced similar symptoms in the past. The patient has been recently seen by an oncologist. Historical: - Allergies: no known allergies; - Home Meds: 1. albuterol sulfate 90 mcg/actuation Inhl HFAA as needed 2. Paxil 40 mg Oral tab 1 tab once daily 3. Advil 200 mg Oral tab 800 mg as needed (Last dose: Unknown) - PMHx: COPD; Crack Cocaine and Marijuana abuse; Depression; Psoriasis; Cancer, Cervix; Cancer, Ovarian- Left; - PSHx: none; - The history from nurses notes was reviewed: and elements of the historical information I have obtained differs from that reported to nursing. - Social history: Smoking status: Patient uses tobacco products, current every day smoker. No barriers to communication noted, The patient speaks fluent [place]i, Speaks appropriately for age. - : The pt / caregiver states he / she is not on anticoagulants. Home medication list is obtained from the patient. - Hospitalizations: : No recent hospitalization is reported. - Exposure Risk Screening:: None identified. - Immunization history:: All immunizations up-to-date. - Family history: Not pertinent. - Social history:: the patient smokes cigarettes the patient drinks alcohol, the patient uses illicit drugs, including marijuana, cocaine. 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 pc Exam: 12:58 General Appearance: alert, the patient is in mild distress. pc 12:58 EENT: normal eye inspection, ears, nose and throat normal, mucous membranes dry. 12:58 Neck: The exam reveals no acute abnormalities. ROM is normal and painless. No nuchal rigidity is noted.. 12:58 Respiratory: no respiratory distress, normal breath sounds, chest non-tender. 12:58 CVS: regular rhythm, normal S1 and S2, no murmurs, strong peripheral pulses, normal capillary refill, the patient is tachycardic, at 114 bpm. 12:58 Abdomen: soft, no organomegaly, normal bowel sounds, mild tenderness in the right lower quadrant and left lower quadrant, without rebound, voluntary guarding is not appreciated, involuntary guarding is not appreciated. 12:58 Back: normal inspection. 12:58 Skin: skin color is normal, warm, dry. 12:58 Extremities: The extremities have a grossly normal appearance, are non-tender, without acute ROM abnormalities. 12:58 Neuro: oriented x 3, cranial nerves normal as tested, no motor deficits, no sensory deficits. 12:58 Psych: normal mood. Vital Signs: 12:06 BP 122 / 64; Pulse 116; Resp 20; Temp 98.6(TE); Pulse Ox 100% on R/A; Weight 61.23 kg / dsf 134.99 lbs; Height 5 ft. 7 in. (170.18 cm); Pain 7/10; 12:07 BP 122 / 64 (auto/); jf3 12:09 Pulse 106 MON; Pulse Ox 98% ; jf3 12:20 Pulse 102 MON; Pulse Ox 96% ; jf3 12:34 BP 118 / 73 (auto/); jf3 12:49 BP 99 / 61 (auto/); jf3 12:51 Pulse 96 MON; Pulse Ox 93% ; jf3 13:04 BP 100 / 64 (auto/); jf3 13:04 Pulse 94 MON; Pulse Ox 95% ; jf3 13:18 Pulse 100 MON; Pulse Ox 94% ; jf3 13:19 BP 117 / 59 (auto/); jf3 13:23 Pulse 108 MON; Pulse Ox 99% ; jf3 13:34 BP 99 / 54 (auto/); jf3 13:49 BP 97 / 55 (auto/); jf3 13:53 Pulse 100 MON; Pulse Ox 96% ; jf3 13:53 Temp 98.6; jf3 14:04 BP 94 / 53 (auto/); jf3 14:04 Pulse 98 MON; Pulse Ox 94% ; jf3 14:19 BP 97 / 57 (auto/); jf3 14:19 Pulse 98 MON; Pulse Ox 93% ; jf3 14:49 BP 104 / 62 (auto/); jf3 14:49 Pulse 92 MON; Pulse Ox 95% ; jf3 15:18 BP 106 / 65 LA Supine (auto/); Pulse 97; jf3 15:18 BP 103 / 59 LA Sitting (auto/); Pulse 98; jf3 15:18 BP 109 / 63 LA Standing (auto/); Pulse 105; jf3 15:19 BP 111 / 64 (auto/); jf3 15:19 Pulse 90 MON; jf3 15:32 Temp 98.8(O); jf3 15:49 BP 101 / 72 (auto/); jf3 15:49 Pulse 94 MON; jf3 16:00 Temp 98.8(O); jf3 16:19 BP 101 / 59 (auto/); jf3 16:20 Pulse 92 MON; jf3 16:29 BP 143 / 73 (auto/); jf3 16:30 Pulse 86 MON; jf3 16:49 BP 151 / 76 (auto/); jf3 16:50 Pulse 74 MON; Pulse Ox 96% ; jf3 19:44 BP 96 / 54; Pulse 95; Resp 20; Temp 99.0; Pulse Ox 96% ; Pain 5/10; kb5 19:50 BP 114 / 66; kb5 20:02 BP 114 / 66; Pulse 90; Resp 20; Temp 99; Pulse Ox 96% ; Pain 5/10; ko2 12:06 Body Mass Index 21.14 (61.23 kg, 170.18 cm) dsf 15:18 Dr Whitman aware of ortho VS jf3 16:00 Dr Whitman aware jf3 MDM: 12:18 IV Saline Lock ordered. pc 12:18 NS 0.9% 1000 ml IV at bolus once ordered. pc 12:18 Ondansetron 4 mg IVP once ordered. pc 12:18 Stool samples ordered. pc 12:19 CBC with Diff Ordered. EDMS 12:19 MED Profile Ordered. EDMS 12:19 Liver Profile Ordered. EDMS 12:46 DIFFERENTIAL NO CHARGE Ordered. EDMS 12:46 PLATELET ESTIMATE Ordered. EDMS 12:58 Differential Diagnosis: nausea, vomiting and diarrhea; immunocompromised; chronic pain. pc Plan: labs, meds, IVF. 13:00 [facility] Payment Agreement was scanned into [employer] and attached to record. [id number] 13:01 Financial registration complete. dm19 13:30 CBC with Diff Reviewed. pc 13:30 MED Profile Reviewed. pc 13:30 Liver Profile Reviewed. pc 13:30 PLATELET ESTIMATE Reviewed. pc 13:31 Repeat Temperature - Oral: Inform provider of result ordered. pc 13:31 NS 0.9% 1000 ml IV at bolus once ordered. pc 14:05 Data reviewed: The patient's [facility] records were accessed, as they were informed. pc 16:00 Data reviewed: old medical records, vital signs, nurses notes, lab test results. Test pc interpretation: LAB - all labs as ordered have been reviewed, interpreted and considered in the overall management of the clinical presentation;. The patient has been re-examined and re-evaluated. The patient's symptoms have markedly improved after treatment, with no further n/v/d, her pulse is below 100. Physician consultation: Dr. Debbi Denis regarding patient's condition, and advises the medications/treatment as provided. and agrees with the treatment provided and advises the discharge plans as outlined. Disposition: The historical points, examination findings, and any diagnostic results supporting the provided diagnosis, were discussed with the patient or legal guardian. The need for outpatient follow up with the provider listed on their discharge instructions was discussed. They were encouraged to return to [facility], or the nearest ED, if symptoms worsen/persist, or for any other questions/concerns. 16:33 ED course: Despite her vital signs normalizing and she is able to tolerate oral fluids, pc the patient feels she needs to be admitted. The Hospitalist will be contacted. . 16:37 Physician consultation: Dr. Deepti Drummond was contacted at 16:38, regarding pc admission, and will see patient in ED, shortly. Disposition: The historical points, examination findings, and any diagnostic results supporting the provided diagnosis, were discussed with the patient or legal guardian. The need for further work-up and/or treatment in the hospital was explained. 16:43 Ondansetron 4 mg IVP once ordered. pc 16:45 BED REQUEST+ADM ordered. EDMS 17:46 FULL LIQUIDS DIET ordered. EDMS 17:48 BLOOD CULTURES Ordered. EDMS 17:48 GASTROINTESTINAL (GI) PANEL Ordered. EDMS 17:48 URINE CULTURE Ordered. EDMS 18:28 Admission / Observation Status ordered. EDMS 19:32 COMPLETE BLOOD COUNT Ordered. EDMS 19:32 COMPLETE COMPHRENSIVE METABOLI Ordered. EDMS Administered Medications: 12:30 Drug: NS 0.9% 1000 ml [sodium chloride 0.9 % injection solution] Route: IV; Rate: jf3 bolus; Site: right antecubital; 13:53 Follow up: Temp 98.6; IV Status: Completed infusion; IV Intake: 1000ml jf3 12:31 Drug: Ondansetron 4 mg [ondansetron HCl 2 mg/mL intravenous solution (2 mL)] Route: jf3 IVP; Site: right antecubital; 13:53 Follow up: Response: Nausea is decreased jf3 13:53 Drug: NS 0.9% 1000 ml [sodium chloride 0.9 % injection solution] Route: IV; Rate: jf3 bolus; Site: right antecubital; 15:33 Follow up: IV Status: Completed infusion; IV Intake: 1000ml jf3 16:47 Drug: Ondansetron 4 mg [ondansetron HCl 2 mg/mL intravenous solution (2 mL)] Route: jf3 IVP; Site: right antecubital; Signatures: Dispatcher [employer] EDMS Cody Whitman MD MD pc Lopresti, Mary-Elizabeth, [employer] ml3 Regina Almaguer RN RN dsf Afua Courtney RN RN ko2 Charmaine Perez dm19 Suresh Paredes RN jf3 The chart was reviewed and I authenticate all verbal orders and agree with the evaluation and treatment provided.Corrections: (The following items were deleted from the chart) 17:48 17:46 GASTROINTESTINAL (GI) PANEL ordered. EDMS EDMS 18:02 12:19 NOTHING BY MOUTH+DIET ordered. EDMS EDMS 18:02 17:20 CLEAR LIQUID+DIET ordered. EDMS EDMS Attachments: 13:00 [facility] Payment Agreement [email or web address] Chart Complete MTDD
--- NOTE | 2016-09-26 11:41 | EDDOCDS ---
Nurse's Notes [facility] Name: Debi Landeros Age: 45 yrs Sex: Female : 1970 Arrival Date: 09/23/2016 Time: 11:56 Bed 8 Private MD: Breana Carbajal Diagnosis: Other viral enteritis;Dehydration;Malignant neoplasm of cervix uteri-metastatic to left ovary;Decreased white blood cell count-without absolute neutropenia, ANC 913 Presentation: 09/23 12:00 Presenting complaint: EMS states: N/V/D and dizziness for the past 12 hours. pt does dsf haver cervical Cancer and did receive her last treatment 1 week ago. Adult Sepsis Screening: Suicide/Homicide risk assessment- the patient denies having any suicidal and/or homicidal ideations and does not present with any other emotional, behavioral or mental health complaints. 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 Transition of care: patient was not received from another setting of care. 12:00 Acuity: MICHELLE Level 3 dsf 12:00 Method Of Arrival: Ambulance dsf 20:22 Adult Sepsis Screening: Patient's respiratory rate is less than 22. Systolic blood ko2 pressure is greater than 100. Patient has a qSOFA score of 0- Negative Sepsis Screen. Triage Assessment: 12:06 General: Appears ill, Behavior is appropriate for age. Pain: Location: abdomen Pain dsf currently is 7 out of 10 on a pain scale. Quality of pain is described as discomfort. HIV screening NA for this visit Offered previously. GI: Pt is actively vomiting clear fluid, Reports diarrhea, nausea, vomiting. Derm: Skin is pale. HOSPICE AIDE: 12:06 LMP N/A - Post-menopause dsf Historical: - Allergies: no known allergies; - Home Meds: 1. albuterol sulfate 90 mcg/actuation Inhl HFAA as needed 2. Paxil 40 mg Oral tab 1 tab once daily 3. Advil 200 mg Oral tab 800 mg as needed (Last dose: Unknown) - PMHx: COPD; Crack Cocaine and Marijuana abuse; Depression; Psoriasis; Cancer, Cervix; Cancer, Ovarian- Left; - PSHx: none; - The history from nurses notes was reviewed: and elements of the historical information I have obtained differs from that reported to nursing. - Social history: Smoking status: Patient uses tobacco products, current every day smoker. No barriers to communication noted, The patient speaks fluent B[place], Speaks appropriately for age. - : The pt / caregiver states he / she is not on anticoagulants. Home medication list is obtained from the patient. - Hospitalizations: : No recent hospitalization is reported. - Exposure Risk Screening:: None identified. - Immunization history:: All immunizations up-to-date. - Family history: Not pertinent. - Social history:: the patient smokes cigarettes the patient drinks alcohol, the patient uses illicit drugs, including marijuana, cocaine. Screenin:14 Screening information is obtained from the patient. Fall risk: No risks identified. ko2 Assistance ADL's: requires no assistance with activities of daily living. Abuse/DV Screen: The patient / caregiver reports he/she is: not in a situation that causes fear, pain or injury. Nutritional screening: No deficits noted. Advance Directives: Currently, there is no health care proxy. There is no active DNR order. There is no living will. There is no Power of Disbursing Agent. home support is adequate. Assessment: 12:57 Adult Sepsis Screening: The patient does not have new or worsening altered mentation. jf3 Patient's respiratory rate is less than 22. Systolic blood pressure is greater than 100. Patient has a qSOFA score of 0- Negative Sepsis Screen. General: Appears ill, Behavior is cooperative, quiet. Pain: Location: abdomen. Neurological: Level of Consciousness is awake, alert, Oriented to person, place, time. Cardiovascular: Capillary refill < 3 seconds Heart tones S1 S2 present Chest pain is denied. Respiratory: Airway is patent Respiratory effort is even, unlabored, Respiratory pattern is regular, symmetrical, Breath sounds are clear bilaterally. GI: Abdomen is non- distended Bowel sounds present X 4 quads. Abd is soft X 4 quads Abd is tender to palpation X 4 quads. Derm: Skin is pale. 14:00 General: Appears ill, Behavior is cooperative, pt states she is feeling much better at jf3 this time. does not feel need to have BM. Neurological: Level of Consciousness is awake, alert, Oriented to person, place, time. Cardiovascular: Capillary refill < 3 seconds Chest pain is denied. Respiratory: Airway is patent Respiratory effort is even, unlabored, Respiratory pattern is regular, symmetrical, Denies shortness of breath. Derm: Skin is pale. 15:00 General: Appears in no apparent distress, comfortable, Behavior is cooperative. jf3 General: Pt states she is feeling much better and feels like she could go home. Nausea decreased. Skin color improved. Pt denies dizziness/light headed-ness. Neurological: Level of Consciousness is awake, alert, Oriented to person, place, time. 16:00 General: Appears in no apparent distress, comfortable, Behavior is cooperative. jf3 Respiratory: Airway is patent Respiratory effort is even, unlabored, Respiratory pattern is regular, symmetrical. 16:49 General: Appears ill, Pt up to bedside commode, states feeling nauseous, sweaty, and jf3 "just like I did when I came in", Dr Whitman made aware. Pt states she wants to be admitted and that if she goes home she is likely to return due to not feeling well. Pain: Location: abdomen Pain currently is 8 out of 10 on a pain scale. Neurological: Level of Consciousness is awake, alert, Oriented to person, place, time. Cardiovascular: Capillary refill < 3 seconds. Respiratory: Airway is patent Respiratory effort is even, unlabored, Respiratory pattern is regular, symmetrical. Derm: Skin is clammy. 18:00 General: Appears ill, Pt resting supine on stretcher. Still states does not feel well. jf3 Pt clammy and nauseous. SO at bedside. respirations easy and unlabored. call light in reach. Will continue top monitor . 19:13 General: Appears in no apparent distress, comfortable, Behavior is cooperative. Pain: ko2 Location: right lower quadrant Pain currently is 4 out of 10 on a pain scale. Neurological: No deficits noted. Respiratory: Airway is patent Respiratory effort is even, unlabored, Respiratory pattern is regular, symmetrical. Derm: Skin is pale. 20:21 General: Appears in no apparent distress, comfortable, Behavior is cooperative. ko2 Neurological: Level of Consciousness is awake, alert, Oriented to person, place, time. Respiratory: Airway is patent Respiratory effort is even, unlabored. Derm: Skin is pale. Vital Signs: 12:06 BP 122 / 64; Pulse 116; Resp 20; Temp 98.6(TE); Pulse Ox 100% on R/A; Weight 61.23 kg; dsf Height 5 ft. 7 in. (170.18 cm); Pain 03/26; 12:07 BP 122 / 64 (auto/); jf3 12:09 Pulse 106 MON; Pulse Ox 98% ; jf3 12:20 Pulse 102 MON; Pulse Ox 96% ; jf3 12:34 BP 118 / 73 (auto/); jf3 12:49 BP 99 / 61 (auto/); jf3 12:51 Pulse 96 MON; Pulse Ox 93% ; jf3 13:04 BP 100 / 64 (auto/); jf3 13:04 Pulse 94 MON; Pulse Ox 95% ; jf3 13:18 Pulse 100 MON; Pulse Ox 94% ; jf3 13:19 BP 117 / 59 (auto/); jf3 13:23 Pulse 108 MON; Pulse Ox 99% ; jf3 13:34 BP 99 / 54 (auto/); jf3 13:49 BP 97 / 55 (auto/); jf3 13:53 Pulse 100 MON; Pulse Ox 96% ; jf3 13:53 Temp 98.6; jf3 14:04 BP 94 / 53 (auto/); jf3 14:04 Pulse 98 MON; Pulse Ox 94% ; jf3 14:19 BP 97 / 57 (auto/); jf3 14:19 Pulse 98 MON; Pulse Ox 93% ; jf3 14:49 BP 104 / 62 (auto/); jf3 14:49 Pulse 92 MON; Pulse Ox 95% ; jf3 15:18 BP 106 / 65 LA Supine (auto/); Pulse 97; jf3 15:18 BP 103 / 59 LA Sitting (auto/); Pulse 98; jf3 15:18 BP 109 / 63 LA Standing (auto/); Pulse 105; jf3 15:19 BP 111 / 64 (auto/); jf3 15:19 Pulse 90 MON; jf3 15:32 Temp 98.8(O); jf3 15:49 BP 101 / 72 (auto/); jf3 15:49 Pulse 94 MON; jf3 16:00 Temp 98.8(O); jf3 16:19 BP 101 / 59 (auto/); jf3 16:20 Pulse 92 MON; jf3 16:29 BP 143 / 73 (auto/); jf3 16:30 Pulse 86 MON; jf3 16:49 BP 151 / 76 (auto/); jf3 16:50 Pulse 74 MON; Pulse Ox 96% ; jf3 19:44 BP 96 / 54; Pulse 95; Resp 20; Temp 99.0; Pulse Ox 96% ; Pain 5/10; kb5 19:50 BP 114 / 66; kb5 20:02 BP 114 / 66; Pulse 90; Resp 20; Temp 99; Pulse Ox 96% ; Pain 5/10; ko2 12:06 Body Mass Index 21.14 (61.23 kg, 170.18 cm) dsf 15:18 Dr Whitman aware of ortho VS jf3 16:00 Dr Whitman aware jf3 Vitals: 12:06 Log In Time N/A - ambulance arrival. dsf ED Course: 11:57 Patient visited by Luz Alberts PCA. ar3 11:57 Patient moved to Waiting ar3 11:58 Michael Hammer, TESS is Primary Nurse. ar3 11:58 Breana Carbajal is Private Physician. ar3 11:58 Patient moved to 8 ar3 12:01 Triage Initiated dsf 12:09 Patient visited by Gricelda Perales PCA. ct3 12:09 Cody Whitman MD is Attending Physician. pc 12:09 Patient has correct armband on for positive identification. Placed in gown. Bed in low ct3 position. Call light in reach. Side rails up X2. lunchroom monitor on. Pulse ox on. NIBP on. 12:16 Patient visited by Cody Whitman MD. pc 12:57 The patient / caregiver is instructed regarding the plan of care and ED course. jf3 12:57 Inserted saline lock: 20 gauge in right antecubital area The patient tolerated the jf3 procedure well. No procedures done that require assistance. 12:59 Patient visited by Suresh Paredes RN. jf3 13:00 [facility] Payment Agreement was scanned into [employer] and attached to record. [id number] 13:18 DIFFERENTIAL NO CHARGE Sent. ar3 13:59 Patient visited by Cody Whitman MD. pc 14:34 Patient visited by Ozzy Clayton. dem1 14:34 Cleaned of incontinence. Linen changed. dem1 15:11 Patient visited by Gricelda Perales PCA. ct3 15:21 Patient visited by Suresh Paredes RN. jf3 15:33 Patient visited by Suresh Paredes RN. jf3 16:03 Lorene Rivers is Referral Physician. pc 16:40 Abram Drummond is Hospitalizing Provider. pc 16:40 Hospitalizing Provider role handed off by Abram Drummond pc 16:40 Deepti Drummond is Hospitalizing Provider. pc 16:51 Patient visited by Suresh Paredes RN. jf3 18:29 Patient visited by Gricelda Perales, FRACTIONATION SUPERVISOR. ct3 18:29 Diet: liquid diet given to patient . ct3 18:56 Afua Courtney,TESS is Primary Nurse. ko2 19:05 Patient visited by Fortino Samuels, ITZ. kb5 19:13 Patient visited by Afua Courtney RN. ko2 20:04 Primary Nurse role handed off by Michael Hammer RN jmv Administered Medications: 12:30 Drug: NS 0.9% 1000 ml [sodium chloride 0.9 % injection solution] Route: IV; Rate: jf3 bolus; Site: right antecubital; 13:53 Follow up: Temp 98.6; IV Status: Completed infusion; IV Intake: 1000ml jf3 12:31 Drug: Ondansetron 4 mg [ondansetron HCl 2 mg/mL intravenous solution (2 mL)] Route: jf3 IVP; Site: right antecubital; 13:53 Follow up: Response: Nausea is decreased jf3 13:53 Drug: NS 0.9% 1000 ml [sodium chloride 0.9 % injection solution] Route: IV; Rate: jf3 bolus; Site: right antecubital; 15:33 Follow up: IV Status: Completed infusion; IV Intake: 1000ml jf3 16:47 Drug: Ondansetron 4 mg [ondansetron HCl 2 mg/mL intravenous solution (2 mL)] Route: jf3 IVP; Site: right antecubital; Intake: 13:53 IV: 1000.00ml; Total: 1000.00ml. jf3 15:33 IV: 1000.00ml; Total: 2000.00ml. jf3 Order Results: Lab Order: CBC with Diff; SPEC'M 09/23/16 12:25 Test: WHITE BLOOD COUNT; Value: 1.1; Range: 4.0-10.0; Abnormal: Below low normal; Units: K/mm3; Status: F Test: RED BLOOD COUNT; Value: 3.62; Range: 4.00-5.40; Abnormal: Below low normal; Units: M/mm3; Status: F Test: HEMOGLOBIN; Value: 12.2; Range: 12.0-16.0; Units: g/dl; Status: F Test: HEMATOCRIT; Value: 35.2; Range: 36.0-47.0; Abnormal: Below low normal; Units: %; Status: F Test: MEAN CORPUSCULAR VOLUME; Value: 97.4; Range: 80.0-96.0; Abnormal: Above high normal; Units: fl; Status: F Test: MEAN CORPUSCULAR HEMOGLOBIN; Value: 33.9; Range: 27.0-33.0; Abnormal: Above high normal; Units: pg; Status: F Test: MEAN CORPUSCULAR HGB CONC; Value: 34.8; Range: 32.0-36.5; Units: g/dl; Status: F Test: RED CELL DISTRIBUTION WIDTH; Value: 15.2; Range: 11.5-14.5; Abnormal: Above high normal; Units: %; Status: F Test: PLATELET COUNT, AUTOMATED; Value: 217; Range: 150-450; Units: k/mm3; Status: F Test: NEUTROPHILS; Value: 83; Range: 35-75; Abnormal: Above high normal; Units: %; Status: F Test: LYMPHOCYTES; Value: 10; Range: 16-52; Abnormal: Below low normal; Units: %; Status: F Test: ATYPICAL LYMPH; Value: 7; Range: 0-5; Abnormal: Above high normal; Units: %; Status: F Test: ANISOCYTOSIS; Value: 1+; Status: F Test: PLATELET CLUMPS; Value: SMALL AMT; Status: F Lab Order: MED Profile; [facility]'M 09/23/16 12:25 Test: GLUCOSE, FASTING; Value: 152; Range: 70-105; Abnormal: Above high normal; Units: MG/DL; Status: F Test: BLOOD UREA NITROGEN; Value: 16; Range: 7-18; Units: MG/DL; Status: F Test: CREATININE FOR GFR; Value: 0.86; Range: 0.55-1.02; Units: MG/DL; Status: F Test: GLOMERULAR FILTRATION RATE; Value: > 60.0; Range: >58; Status: F Test: SODIUM LEVEL; Value: 145; Range: 136-145; Units: MEQ/L; Status: F Test: POTASSIUM SERUM; Value: 3.5; Range: 3.5-5.1; Units: MEQ/L; Status: F Test: CHLORIDE LEVEL; Value: 109; Range: 98-107; Abnormal: Above high normal; Units: MEQ/L; Status: F Test: CARBON DIOXIDE LEVEL; Value: 26; Range: 21-32; Units: MEQ/L; Status: F Test: ANION GAP; Value: 10; Range: 8-16; Units: MEQ/L; Status: F Test: CALCIUM LEVEL; Value: 9.1; Range: 8.5-10.1; Units: MG/DL; Status: F Test Note: ; Units are mL/min/1.73 m2 Chronic Kidney Disease Staging per NKF: Stage I & II GFR >=60 Normal to Mildly Decreased Stage III GFR 30-59 Moderately Decreased Stage IV GFR 15-29 Severely Decreased Stage V GFR <15 Very Little GFR Left ESRD GFR <15 on TRACTOR ENGINE ASSEMBLER Lab Order: Liver Profile; SPEC'M 09/23/16 12:25 Test: AST/SGOT; Value: 10; Range: 15-37; Abnormal: Below low normal; Units: U/L; Status: F Test: ALT/SGPT; Value: 21; Range: 12-78; Units: U/L; Status: F Test: ALKALINE PHOSPHATASE; Value: 80; Range: 45-117; Units: U/L; Status: F Test: BILIRUBIN,TOTAL; Value: 0.8; Range: 0.2-1.0; Units: MG/DL; Status: F Test: BILIRUBIN,DIRECT; Value: 0.2; Range: 0.0-0.2; Units: MG/DL; Status: F Test: TOTAL PROTEIN; Value: 7.0; Range: 6.4-8.2; Units: GM/DL; Status: F Test: ALBUMIN; Value: 4.2; Range: 3.2-5.2; Units: GM/DL; Status: F Test: ALBUMIN/GLOBULIN RATIO; Value: 1.50; Range: 1.00-1.93; Status: F Lab Order: PLATELET ESTIMATE; SPEC'M 09/23/16 12:25 Test: PLATELET ESTIMATE; Value: NORMAL; Range: NORMAL; Status: F Outcome: 16:03 Discharge ordered by Provider. pc 16:40 Decision to Hospitalize by Provider. pc 20:23 Discharge Assessment: Patient awake, alert and oriented x 3. No cognitive and/or ko2 functional deficits noted. Patient verbalized understanding of disposition instructions. The following High Risk Discharge criteria are identified: None. Admitted to Med/Surg accompanied by tech, via stretcher, with chart. Condition: stable. Admission hand-off: Report Faxed Fax receipt verified by [facility]. Property :Personal belongings accompany Pt. 20:31 Discharge Assessment: patient administered narcotics - no. No special radiology studies cp1 were completed. 20:43 Patient left the ED. ko2 Signatures: Cody Whitman MD MD pc Fortino Samuels, FRACTIONATION SUPERVISOR FRACTIONATION SUPERVISOR kb5 Luz Alberts, FRACTIONATION SUPERVISOR FRACTIONATION SUPERVISOR ar3 Megan Blake,NUMERICAL TOOL PROGRAMMER NUMERICAL TOOL PROGRAMMER cp1 Gricelda Perales, FRACTIONATION SUPERVISOR FRACTIONATION SUPERVISOR ct3 Regina Almaguer RN RN dsf Ozzy Clayton dem1 Afua Courtney RN RN ko2 Suresh Paredes RN RN jf3 Derick Bettencourt, FRACTIONATION SUPERVISOR FRACTIONATION SUPERVISOR jmv Charmaine Perez [id number] Corrections: (The following items were deleted from the chart) 12:05 12:00 Presenting complaint: EMS states: N/V/D and dizziness for the past 12 hours. pt dsf does haver cervical Cancer and is receiving chemotherapy. Last treatment was 1 week ago dsf Chart Complete MTDD
[2016-09-26] MEDS ORDERED: LR 1,000 ML IV SCH (12:30)
[2016-09-26] MEDS ORDERED: ONDANSETRON 4MG/2ML VIAL (J2405) IV PRN (12:30)
[2016-09-26] MEDS ORDERED: PERCOCET 5MG/325MG TAB PO PRN (12:30)
[2016-09-26] MEDS ORDERED: fentaNYL 100 MCG/2 ML INJECTION (J3010) IV PRN (12:30)
[2016-09-26] MEDS ORDERED: POTASSIUM CHLORIDE 10 MEQ SR TABLET PO ONE (14:00)
--- NOTE | 2016-09-26 15:14 | IPNPDOC ---
Date of Service/Time Sep 26, 2016 Progress Note SUBJECTIVE: Pt was seen at bedside today. Pt reports feeling much improved and denies N/V/D and abdominal pain this AM. Pt is upset that she cannot eat before her nephrostomy and refused to answer further questions or cooperate for abd exam until she gets Pepsi and ice cream. OBJECTIVE: Patient Refused IMAGING: CT Pelvis and Abdomen showed Left hydronephrosis DVT prophylaxis ordered?: Yes, Lovenox PROBLEMS: 1. Bacteremia - Pt is still febrile after presenting with febrile neutropenia on 09/23. B/Cs showed growth of Gram - rods yesterday. Plan to continue current regimen of cefepime, continue monitoring labs, CBC w/ diff to calculate ANC. 2. L hydronephrosis - Pt is scheduled for a L renal catheter to drain her kidney today. Plan per urology. 2. UTI - U/c showed growth of e. coli in urine. Pt is already on appropriate coverage with cefepime. 3. Cervical Cancer - Pt is currently undergoing tx of her ca with [facility] 4. Anemia - Pt's H/H are trending back up today. Will continue to monitor throughout her stay. Will transfuse if Hemoglobin drops below 7. 5. Hypokalemia - pt's K is 3 today and has remained low. Patient refused [place], will supplement with IV fluids and oral potassium after procedure. VS, I&O, 24H, Fishbone VS, I&O, 24H, Fishbone Vital Signs Date Time Tmax Pulse Resp B/P Pulse Ox O2 Delivery O2 Flow Rate FiO2 09/26/16 06:00 101.6 62 18 126/71 95 Room Air I&O- Last 24 Hours up to 6 AM 09/26/16 06:00 Intake Total 2590 ml Output Total 0 ml Balance 2590 ml Laboratory Tests 2 09/26/16 06:09: Blood Urea Nitrogen 8, Creatinine 0.65, Sodium Level 143, Potassium Level 3.0L, Chloride Level 108H, Carbon Dioxide Level 26, Calcium Level 7.8L, Aspartate Amino Transf (AST/SGOT) 14L, Alanine Aminotransferase (ALT/SGPT) 19, Alkaline Phosphatase 71, Total Bilirubin 0.6, Total Protein 5.5L, Albumin 2.6L, Albumin/ Globulin Ratio 0.90L, Anion Gap 9, Glomerular Filtration Rate > 60.0, Prothromb Time International Ratio 1.24, Prothrombin Time 15.7H Laboratory Tests 09/26/16 06:09 Calcium Level 7.8 L, Aspartate Amino Transf (AST/SGOT) 14 L, Alanine Aminotransferase (ALT/SGPT) 19, Alkaline Phosphatase 71, Total Bilirubin 0.6, Total Protein 5.5 L, Albumin 2.6 L, Red Blood Count 2.60 L, Mean Corpuscular Volume 97.1 H, Mean Corpuscular Hemoglobin 35.3 H, Mean Corpuscular Hemoglobin Concent 36.3, Red Cell Distribution Width 15.0 H Microbiology 09/24/16 Blood Culture - Preliminary, Resulted 09/24/16 Blood Culture - Preliminary, Resulted 09/23/16 Blood Culture - Preliminary, Resulted No Growth after 48 hours. All Specime... 09/24/16 Influenza Virus Type A Antigen - Final, Complete 09/24/16 Influenza Virus Type B Antigen - Final, Complete 09/24/16 Urine Culture - Final, Complete Escherichia Coli MAKEDA MATA DO Sep 26, 2016 09:22
[2016-09-26] MEDS: ACETAMINOPHEN TAB 650MG DOSE (2X325MG) PO PRN (19:23)
[2016-09-26] MEDS: PARoxetine 20 MG TAB PO SCH (20:29)
[2016-09-27] MEDS: ONDANSETRON 4MG/2ML VIAL (J2405) IV SCH ×6 (00:53→20:34)
[2016-09-27] MEDS: KCL 20MEQ IN D5/NS 1000ML 1,000 ML IV SCH ×2 (03:25→13:07)
[2016-09-27] MEDS: CEFEPIME HCL 2 GM in D5W MINI-BAG PLUS 50 ML IV SCH ×2 (05:10→18:48)
[2016-09-27 06:00] VITALS: BP 121/61
[2016-09-27 07:08] LABS: MEAN CORPUSCULAR HEMOGLOBIN 34.6 pg (27.0-33.0); MEAN CORPUSCULAR HGB CONC 35.9 g/dl (32.0-36.5); MEAN CORPUSCULAR VOLUME 96.5 fl (80.0-96.0)
[2016-09-27 07:20] LABS: ALBUMIN 2.5 GM/DL (3.2-5.2); ALBUMIN/GLOBULIN RATIO 0.86 (1.00-1.93); ALKALINE PHOSPHATASE 76 U/L (45-117); ALT/SGPT 26 U/L (12-78); ANION GAP 7 MEQ/L (8-16); AST/SGOT 20 U/L (15-37); BILIRUBIN,TOTAL 0.6 MG/DL (0.2-1.0); BLOOD UREA NITROGEN 6 MG/DL (7-18); CALCIUM LEVEL 7.3 MG/DL (8.5-10.1); CARBON DIOXIDE LEVEL 27 MEQ/L (21-32); CHLORIDE LEVEL 107 MEQ/L (98-107); CREATININE FOR GFR 0.67 MG/DL (0.55-1.02); GLOMERULAR FILTRATION RATE > 60.0 (>58); GLUCOSE, FASTING 104 MG/DL (70-105); POTASSIUM SERUM 3.2 MEQ/L (3.5-5.1); SODIUM LEVEL 141 MEQ/L (136-145); TOTAL PROTEIN 5.4 GM/DL (6.4-8.2)
[2016-09-27] MEDS: ENOXAPARIN 40 MG/0.4 ML SYRINGE (J1650) SC SCH (09:18)
[2016-09-27] MEDS ORDERED: POTASSIUM CHLORIDE 10 MEQ SR TABLET PO ONE (09:30)
[2016-09-27 09:33] LABS: MAGNESIUM LEVEL 1.5 MG/DL (1.8-2.4)
--- NOTE | 2016-09-27 12:23 | IPNPDOC ---
Date of Service/Time Sep 27, 2016 Progress Note SUBJECTIVE: Patient is a 45 y/o female with febrile neutropenia. Pt was seen sitting in her chair today. Pt reports she is ambulating well and feeling much better than yesterday s/p her L nephrostomy tube. Tube is draining well 150mL clear yellow fluid and pt has no pain around procedural site. Pt denies shaking chills, dizziness, h/a, vomiting, diarrhea, and states her abdominal pain now just a mild dull cramping feeling. Pt was able to tolerate food this AM but reports feeling nauseous. Pt is also feeling weak/fatigued. Pt still has c/o urinary incontinence and urgency but denies pain or burning during urination. OBJECTIVE: PHYSICAL EXAMINATION: VITAL SIGNS: Please see below. GENERAL: Pt appears more comfortable today and is able to move around room well. AOx3 CARDIOVASCULAR: S1S2 no Murmurs RESPIRATORY: Clear to auscultation, diminished breath sounds throughout ABDOMINAL: NTND BS+ throughout EXTREMITIES: No LE edema noted LABORATORY DATA: Please see below. MICROBIOLOGY: Please see below. PROBLEMS: 1. E.Coli Bacteremia: B/C resulted E.Coli yesterday. It is likely the source of infection was through urinary tract, since U/C was also positive for E.Coli. Plan to continue Cefepime because Tmax 100.3, and she is still taking fever reducers. Will continue to monitor labs until resolution of infection. 2. UTI: Her urinary incontinence/urgency is likely secondary to her UTI. Pt is on appropriate antibiotic treatment and we will continue to monitor. 3. Hypokalemia: Pt's K trended up today. Continue giving Potassium PO and encouraging pt to eat. 4. Anemia: H/H still trending down. Procedural site from yesterday is not actively bleeding. Will continue to monitor and will transfuse if necessary 4. COPD (chronic): Pt reports no increased SOB from her baseline. Pt is being managed by an outside provider for her COPD and has not had any exacerbations. 5. Cervical Cancer (chronic): Pt to f/u with her Rad/Onc provider for further treatment VS, I&O, 24H, Fishbone VS, I&O, 24H, Fishbone Vital Signs Date Time Temp Pulse Resp B/P Pulse Ox O2 Delivery O2 Flow Rate FiO2 09/27/16 06:00 97.9 58 18 121/61 98 Room Air 09/26/16 12:25 2 I&O- Last 24 Hours up to 6 AM 09/27/16 06:00 Intake Total 5060 ml Output Total 500 ml Balance 4560 ml Laboratory Tests 2 09/27/16 06:26: Blood Urea Nitrogen 6L, Creatinine 0.67, Sodium Level 141, Potassium Level 3.2L , Chloride Level 107, Carbon Dioxide Level 27, Calcium Level 7.3L, Aspartate Amino Transf (AST/SGOT) 20, Alanine Aminotransferase (ALT/SGPT) 26, Alkaline Phosphatase 76, Total Bilirubin 0.6, Total Protein 5.4L, Albumin 2.5L, Albumin/ Globulin Ratio 0.86L, Anion Gap 7L, Glomerular Filtration Rate > 60.0 Laboratory Tests 09/27/16 06:26 Calcium Level 7.3 L, Aspartate Amino Transf (AST/SGOT) 20, Alanine Aminotransferase (ALT/SGPT) 26, Alkaline Phosphatase 76, Total Bilirubin 0.6, Total Protein 5.4 L, Albumin 2.5 L, Red Blood Count 2.55 L, Mean Corpuscular Volume 96.5 H, Mean Corpuscular Hemoglobin 34.6 H, Mean Corpuscular Hemoglobin Concent 35.9, Red Cell Distribution Width 15.0 H Microbiology 09/24/16 Blood Culture - Final, Complete Escherichia Coli 09/24/16 Blood Culture - Final, Complete Escherichia Coli 09/23/16 Blood Culture - Preliminary, Resulted No Growth after 72 hours. All specime... 09/24/16 Influenza Virus Type A Antigen - Final, Complete 09/24/16 Influenza Virus Type B Antigen - Final, Complete 09/26/16 Urine Culture, Received Pending 09/26/16 Anaerobic Culture, Received Pending 09/24/16 Urine Culture - Final, Complete Escherichia Coli 09/26/16 Gram Stain - Final, Resulted 09/26/16 Body Fluid Culture, Resulted Pending MAKEDA MATA DO Sep 27, 2016 09:21
[2016-09-27 14:00] VITALS: BP 136/80
[2016-09-27] MEDS: ACYCLOVIR 5% OINT 15GM TOP SCH ×2 (16:13→20:35)
[2016-09-27] MEDS: ACETAMINOPHEN TAB 650MG DOSE (2X325MG) PO PRN (16:13)
--- NOTE | 2016-09-27 16:59 | REPKIM ---
CLINICAL HISTORY: Patient with cervical ca with left pelvic extension presents with left hydronephrosis, UTI, flank pain, fever and bacteremia. The referring service has asked a nephrostomy catheter placement on the left. PROCEDURE: 1. Ultrasound of the left kidney 2. Nephrostomy urinary diversion tube placement INTERVENTIONALIST: Chanelle Denis MD SEDATION: Sedation and analgesia was provided by the Anesthesiology Dept. EBL: 5 mL CONTRAST: 10 mL Isovue 300 FLUORO TIME: 3.5 minutes DEVICE USED: Nephrostomy Resolve catheter 8.5F Lot#[id number] Description of procedure: The risks, benefits, and alternatives of the procedure were discussed with the patient and informed written consent was obtained. The patient was brought to the interventional radiology suite where a timeout procedure was performed. The patient was placed in the prone position. The left torres was prepped and draped in the usual sterile fashion. Ultrasound of the left kidney showed mild to moderate hydronephrosis. Using ultrasound and fluoroscopic guidance, a 21-gauge Accustick needle was percutaneously introduced into the lower pole posterior calyx. Using this access, an Accustick catheter was introduced with its tip positioned in the renal pelvis. Initial aspirate revealed blood tinged urine. A sample of urine sent for c/s. Contrast was injected and DSA Nephrostogram was obtained. This showed partial obstruction involving the distal ureter. An 8.5-Estonian nephrostomy catheter was introduced over the guidewire. The guidewire was withdrawn and the distal end of the catheter was formed in the renal pelvis. Contrast was gently hand injected confirming satisfactory catheter positioning. The nephrostomy drainage catheter was then secured to the skin with 2-0 suture and covered with a sterile dressing. The nephrostomy urinary diversion catheter was flushed and connected to a gravity bag. The patient tolerated the procedure well with no immediate complications. This procedure was performed using ultrasound and fluoroscopy. Dr. Denis was present. IMPRESSION: 1. Cervical ca with left pelvic extension. Hydronephrosis. 2. Successful placement of 8.5-Estonian percutaneous nephrostomy urinary diversion tube on the left. Plan: Routine catheter exchange in approximately 10 weeks or earlier if signs of tube dysfunction were to occur. cc: MD Jairon Hamilton MD MTDD
[2016-09-27] MEDS: NICOTINE 21MG/24HR 1 EA TRANSDERMAL TD PRN (20:33)
[2016-09-27] MEDS: PARoxetine 20 MG TAB PO SCH (20:36)
[2016-09-27 22:00] VITALS: BP 115/53
[2016-09-28] MEDS: KCL 20MEQ IN D5/NS 1000ML 1,000 ML IV SCH ×3 (00:58→21:37)
[2016-09-28] MEDS: ONDANSETRON 4MG/2ML VIAL (J2405) IV SCH ×6 (00:58→21:36)
[2016-09-28] MEDS: CEFEPIME HCL 2 GM in D5W MINI-BAG PLUS 50 ML IV SCH ×2 (05:36→17:31)
[2016-09-28 06:00] VITALS: BP 133/60
[2016-09-28 06:45] LABS: MEAN CORPUSCULAR HEMOGLOBIN 35.1 pg (27.0-33.0); MEAN CORPUSCULAR HGB CONC 36.5 g/dl (32.0-36.5); MEAN CORPUSCULAR VOLUME 96.1 fl (80.0-96.0); WHITE BLOOD COUNT 2.8 K/mm3 (4.0-10.0)
[2016-09-28 07:00] LABS: ALBUMIN 2.6 GM/DL (3.2-5.2); ALKALINE PHOSPHATASE 86 U/L (45-117); ALT/SGPT 34 U/L (12-78); ANION GAP 8 MEQ/L (8-16); AST/SGOT 23 U/L (15-37); BILIRUBIN,TOTAL 0.7 MG/DL (0.2-1.0); BLOOD UREA NITROGEN 5 MG/DL (7-18); CALCIUM LEVEL 7.6 MG/DL (8.5-10.1); CARBON DIOXIDE LEVEL 26 MEQ/L (21-32); CHLORIDE LEVEL 107 MEQ/L (98-107); CREATININE FOR GFR 0.67 MG/DL (0.55-1.02); GLOMERULAR FILTRATION RATE > 60.0 (>58); GLUCOSE, FASTING 98 MG/DL (70-105); POTASSIUM SERUM 3.1 MEQ/L (3.5-5.1); SODIUM LEVEL 141 MEQ/L (136-145); TOTAL PROTEIN 5.5 GM/DL (6.4-8.2)
[2016-09-28] MEDS ORDERED: POTASSIUM CHLORIDE 10 MEQ SR TABLET PO ONE (09:00)
[2016-09-28 09:16] LABS: MAGNESIUM LEVEL 1.4 MG/DL (1.8-2.4)
[2016-09-28] MEDS: ENOXAPARIN 40 MG/0.4 ML SYRINGE (J1650) SC SCH (09:25)
[2016-09-28] MEDS: ACYCLOVIR 5% OINT 15GM TOP SCH ×4 (09:25→21:37)
--- NOTE | 2016-09-28 10:07 | IPNPDOC ---
Assessment/Plan Date Seen The patient was seen on 09/28/16. Problems Problems: (1) Hydronephrosis of left kidney Status: Acute Response to Treatment: Improving Discussed With: Patient Problem Specific Plan: Consult Specialist, Monitor Clinically, Repeat Labs Problem Text: s/p nephrostomy tube - in place follow as per IR (2) Bacteremia Status: Acute Response to Treatment: Progressing Discussed With: Patient Problem Specific Plan: Repeat Labs Problem Text: Pending repeat cultures. Ecoli bacteremia. Fenton sensitive. Continue with IV antibiotics. Will de-escalate pending further culture results. (3) Enteritis Status: Resolved Response to Treatment: Stable Problem Text: likely 2/2 viral etiology or radiation/chemotherapy therapy will control pts vomiting with IV zofran pt clear liquids for right now, advance diet as tolerated (4) Leukopenia Status: Chronic Response to Treatment: Stable Problem Text: most likely 2/2 cervical cancer treatment continue to monitor no fever documented will obtain blood and urine cx as pt is immunosuppressed from CA treatments (5) Cervical cancer Status: Chronic Response to Treatment: Stable Problem Text: pt. follows with oncology in [facility] is s/p 5 chemotherapy and 25 radiation treatments (6) Vomiting Status: Resolved Response to Treatment: Stable Problem Text: pt received IV Zofran in ED, will schedule on floor pt states she feels dry- given hx of diarrhea and vomiting, will begin NS at 100 mL full liquid diet- advance as pt tolerates (7) Depression Status: Chronic Response to Treatment: Stable, Uncontrolled Problem Text: continue pts home medication Plan / VTE VTE Prophylaxis Ordered?: Yes Plan IVF: Continue Diet: Continue Current Activity: Continue Current Medications: Replete Electrolytes IV, Replete Electrolytes PO, Taper Antibiotics Diagnostics: Repeat Labs in AM Subjective Review of Systems CC/HPI The patient is a 45-year-old female admitted with a reason for visit of Gastroenteritis. General: Denies: Chills, Fatigue, Malaise, Night Sweats, Normal Appetite, Other Symptoms, ROS Unobtainable Constitutional: Denies: Chills, Fatigue, Fever, Lethargy, Malaise, Night Sweats , Other, Weakness, Weight Loss Eyes: Denies: Conjunctivae inflammation, Eyelid inflammation, Other, Pain, Redness, Vision change ENT: Denies: Dysphagia, Ear Pain, Epistaxis, Head Aches, Other Symptoms, Post Nasal Drip, Sinus Congestion, Sore Throat Skin: Denies: Breakdown, Bruising, Dry, Itching, Jaundice, Lesions, Nail Changes, Other, Rash Pulmonary: Denies: Cough, Dyspnea, Other Symptoms, Pleuritic Chest Pain Cardiovascular: Denies: Chest Pain, Edema, Lt Headedness, Orthopnea, Other Symptoms, Palpitations, Paroxysmal Noc. Dyspnea Gastrointestinal: Denies: Abdominal Pain, Constipation, Diarrhea, Hematochezia , Melena, Nausea, Other Symptoms, Vomiting Musculoskeletal: Reports: Other Symptoms (left flank pain at site of) Objective Physical Examination General Exam: Positive: Alert, Cooperative, No Acute Distress Eye Exam: Positive: Conjunctiva & lids normal, EOMI, PERRLA ENT Exam: Positive: Atraumatic Neck Exam: Positive: Supple Chest Exam: Positive: Clear to auscultation, Normal air movement, Negative: Rales, Rhonchi, Wheezing Heart Exam: Positive: Normal S1, Normal S2, Rate Normal, Regular Rhythm Abdomen Exam: Positive: Normal bowel sounds, Soft, Negative: Hepatospenomegaly, Mass, Tenderness Extremity Exam: Negative: Clubbing, Cyanosis, Edema Skin Exam: Positive: Nl turgor and temperature, Negative: Breakdown, Rash Psych Exam: Positive: Mental status NL, Mood NL, Oriented x 3 Vital Signs/I&O Vital Signs Date Time Temp Pulse Resp B/P Pulse Ox O2 Delivery O2 Flow Rate FiO2 09/28/16 06:00 97.4 67 18 133/60 96 Room Air 09/26/16 12:25 2 I&O- Last 24 Hours up to 6 AM 09/28/16 05:59 Intake Total 3400 ml Output Total 1125 ml Balance 2275 ml Laboratory Data Labs 24H Laboratory Tests 2 09/28/16 05:54: Blood Urea Nitrogen 5L, Creatinine 0.67, Sodium Level 141, Potassium Level 3.1L , Chloride Level 107, Carbon Dioxide Level 26, Calcium Level 7.6L, Aspartate Amino Transf (AST/SGOT) 23, Alanine Aminotransferase (ALT/SGPT) 34, Alkaline Phosphatase 86, Total Bilirubin 0.7, Total Protein 5.5L, Albumin 2.6L, Albumin/ Globulin Ratio 0.90L, Anion Gap 8, Glomerular Filtration Rate > 60.0, Magnesium Level 1.4L CBC/BMP Laboratory Tests 09/28/16 05:54 Calcium Level 7.6 L, Aspartate Amino Transf (AST/SGOT) 23, Alanine Aminotransferase (ALT/SGPT) 34, Alkaline Phosphatase 86, Total Bilirubin 0.7, Total Protein 5.5 L, Albumin 2.6 L, Red Blood Count 2.48 L, Mean Corpuscular Volume 96.1 H, Mean Corpuscular Hemoglobin 35.1 H, Mean Corpuscular Hemoglobin Concent 36.5, Red Cell Distribution Width 15.0 H Microbiology Microbiology 09/27/16 Blood Culture, Received Pending 09/27/16 Blood Culture, Received Pending 09/24/16 Blood Culture - Final, Complete Escherichia Coli 09/24/16 Blood Culture - Final, Complete Escherichia Coli 09/23/16 Blood Culture - Preliminary, Resulted No Growth after 72 hours. All specime... 09/24/16 Influenza Virus Type A Antigen - Final, Complete 09/24/16 Influenza Virus Type B Antigen - Final, Complete 09/26/16 Urine Culture - Final, Complete 09/26/16 Anaerobic Culture - Final, Complete 09/24/16 Urine Culture - Final, Complete Escherichia Coli 09/26/16 Gram Stain - Final, Complete 09/26/16 Body Fluid Culture - Final, Complete JESSE DILLON MD Sep 28, 2016 10:07
[2016-09-28] MEDS: MAG SULF 1GM/100ML (MAG RUN) 1 GM in APPROPRIATE DILUENT 1 EA IV SCH ×2 (11:21→12:30)
[2016-09-28 14:00] VITALS: BP 146/68
[2016-09-28] MEDS: PARoxetine 20 MG TAB PO SCH (21:00)
[2016-09-28 22:00] VITALS: BP 122/77
[2016-09-29] MEDS: ONDANSETRON 4MG/2ML VIAL (J2405) IV SCH ×3 (01:03→08:35)
[2016-09-29] MEDS: CEFEPIME HCL 2 GM in D5W MINI-BAG PLUS 50 ML IV SCH (04:55)
[2016-09-29] MEDS: KCL 20MEQ IN D5/NS 1000ML 1,000 ML IV SCH (04:56)
[2016-09-29 06:00] VITALS: BP 119/74
[2016-09-29] MEDS: NICOTINE 21MG/24HR 1 EA TRANSDERMAL TD PRN (06:15)
[2016-09-29 06:56] LABS: MEAN CORPUSCULAR HEMOGLOBIN 35.2 pg (27.0-33.0); MEAN CORPUSCULAR HGB CONC 35.9 g/dl (32.0-36.5); RED CELL DISTRIBUTION WIDTH 15.1 % (11.5-14.5); WHITE BLOOD COUNT 2.4 K/mm3 (4.0-10.0)
[2016-09-29 07:19] LABS: ALBUMIN 2.9 GM/DL (3.2-5.2); ALBUMIN/GLOBULIN RATIO 1.04 (1.00-1.93); ALKALINE PHOSPHATASE 98 U/L (45-117); ALT/SGPT 35 U/L (12-78); ANION GAP 9 MEQ/L (8-16); AST/SGOT 17 U/L (15-37); BILIRUBIN,TOTAL 0.4 MG/DL (0.2-1.0); BLOOD UREA NITROGEN 2 MG/DL (7-18); CALCIUM LEVEL 8.1 MG/DL (8.5-10.1); CARBON DIOXIDE LEVEL 26 MEQ/L (21-32); CHLORIDE LEVEL 109 MEQ/L (98-107); GLOMERULAR FILTRATION RATE > 60.0 (>58); GLUCOSE, FASTING 105 MG/DL (70-105); MAGNESIUM LEVEL 1.7 MG/DL (1.8-2.4); POTASSIUM SERUM 3.6 MEQ/L (3.5-5.1); SODIUM LEVEL 144 MEQ/L (136-145); TOTAL PROTEIN 5.7 GM/DL (6.4-8.2)
[2016-09-29] MEDS: ENOXAPARIN 40 MG/0.4 ML SYRINGE (J1650) SC SCH (08:36)
[2016-09-29] MEDS: ACYCLOVIR 5% OINT 15GM TOP SCH ×5 (08:36→21:00)
--- NOTE | 2016-09-29 08:52 | IPNPDOC ---
Assessment/Plan Date Seen The patient was seen on 09/29/16. Problems Problems: (1) Hydronephrosis of left kidney Status: Acute Response to Treatment: Improving Discussed With: Patient Problem Specific Plan: Consult Specialist, Monitor Clinically, Repeat Labs Problem Text: s/p nephrostomy tube - in place follow as per urology - o/p follow up d/w IR, change in [address] as per urology (2) Bacteremia Status: Acute Response to Treatment: Progressing Discussed With: Patient Problem Specific Plan: Repeat Labs Problem Text: Pending repeat cultures. Ecoli bacteremia. Fenton sensitive. Continue with IV antibiotics. Will de-escalate pending further culture results. (3) Enteritis Status: Resolved Response to Treatment: Stable Problem Text: likely 2/2 viral etiology or radiation/chemotherapy therapy will control pts vomiting with IV zofran pt clear liquids for right now, advance diet as tolerated (4) Leukopenia Status: Chronic Response to Treatment: Stable Problem Text: most likely 2/2 cervical cancer treatment continue to monitor no fever documented will obtain blood and urine cx as pt is immunosuppressed from CA treatments (5) Cervical cancer Status: Chronic Response to Treatment: Stable Problem Text: pt. follows with oncology in [facility] is s/p 5 chemotherapy and 25 radiation treatments (6) Vomiting Status: Resolved Response to Treatment: Stable Problem Text: pt received IV Zofran in ED, will schedule on floor pt states she feels dry- given hx of diarrhea and vomiting, will begin NS at 100 mL full liquid diet- advance as pt tolerates (7) Depression Status: Chronic Response to Treatment: Stable, Uncontrolled Problem Text: continue pts home medication Plan / VTE VTE Prophylaxis Ordered?: Yes Plan IVF: Discontinue Diet: Continue Current Activity: Continue Current Medications: Replete Electrolytes IV, Taper Antibiotics Diagnostics: Repeat Labs in AM, Obtain Cultures Anticipated Discharge: Home Plan Text IV antibiotics for today, replete mag IV. Anticipating discharge in 24 hours. Subjective Review of Systems CC/HPI The patient is a 45-year-old female admitted with a reason for visit of Gastroenteritis. General: Denies: Chills, Fatigue, Malaise, Night Sweats, Normal Appetite, Other Symptoms, ROS Unobtainable Constitutional: Denies: Chills, Fatigue, Fever, Lethargy, Malaise, Night Sweats , Other, Weakness, Weight Loss Eyes: Denies: Conjunctivae inflammation, Eyelid inflammation, Other, Pain, Redness, Vision change ENT: Denies: Dysphagia, Ear Pain, Epistaxis, Head Aches, Other Symptoms, Post Nasal Drip, Sinus Congestion, Sore Throat Skin: Reports: Rash, Denies: Breakdown, Bruising, Dry, Itching, Jaundice, Lesions, Nail Changes, Other Pulmonary: Denies: Cough, Dyspnea, Other Symptoms, Pleuritic Chest Pain Cardiovascular: Denies: Chest Pain, Edema, Lt Headedness, Orthopnea, Other Symptoms, Palpitations, Paroxysmal Noc. Dyspnea Gastrointestinal: Denies: Abdominal Pain, Constipation, Diarrhea, Hematochezia , Melena, Nausea, Other Symptoms, Vomiting Genitourinary: Denies: Dysuria, Frequency, Hematuria, Incontinence, Other Symptoms, Retention Objective Physical Examination General Exam: Positive: Alert, Cooperative, No Acute Distress Eye Exam: Positive: Conjunctiva & lids normal, EOMI, PERRLA ENT Exam: Positive: Atraumatic Neck Exam: Positive: Supple Chest Exam: Positive: Clear to auscultation, Normal air movement, Negative: Rales, Rhonchi, Wheezing Heart Exam: Positive: Normal S1, Normal S2, Rate Normal, Regular Rhythm Abdomen Exam: Positive: Normal bowel sounds, Soft, Negative: Hepatospenomegaly, Mass, Tenderness Extremity Exam: Negative: Clubbing, Cyanosis, Edema Skin Exam: Positive: Nl turgor and temperature, Negative: Breakdown, Rash Psych Exam: Positive: Mental status NL, Mood NL, Oriented x 3 Vital Signs/I&O Vital Signs Date Time Temp Pulse Resp B/P Pulse Ox O2 Delivery O2 Flow Rate FiO2 09/29/16 06:00 97.2 67 15 119/74 100 Room Air 09/26/16 12:25 2 I&O- Last 24 Hours up to 6 AM 09/29/16 05:59 Intake Total 4860 ml Output Total 1900 ml Balance 2960 ml Laboratory Data Labs 24H Laboratory Tests 2 09/29/16 06:34: Blood Urea Nitrogen 2#L, Creatinine 0.70, Sodium Level 144, Potassium Level 3.6 , Chloride Level 109H, Carbon Dioxide Level 26, Calcium Level 8.1L, Aspartate Amino Transf (AST/SGOT) 17, Alanine Aminotransferase (ALT/SGPT) 35, Alkaline Phosphatase 98, Total Bilirubin 0.4, Total Protein 5.7L, Albumin 2.9L, Albumin/ Globulin Ratio 1.04, Anion Gap 9, Glomerular Filtration Rate > 60.0, Magnesium Level 1.7L CBC/BMP Laboratory Tests 09/29/16 06:34 Calcium Level 8.1 L, Aspartate Amino Transf (AST/SGOT) 17, Alanine Aminotransferase (ALT/SGPT) 35, Alkaline Phosphatase 98, Total Bilirubin 0.4, Total Protein 5.7 L, Albumin 2.9 L, Red Blood Count 2.81 L, Mean Corpuscular Volume 98.0 H, Mean Corpuscular Hemoglobin 35.2 H, Mean Corpuscular Hemoglobin Concent 35.9, Red Cell Distribution Width 15.1 H Microbiology Microbiology 09/27/16 Blood Culture - Preliminary, Resulted No growth after 24 hours . All specim... 09/27/16 Blood Culture - Preliminary, Resulted No growth after 24 hours . All specim... 09/24/16 Blood Culture - Final, Complete Escherichia Coli 09/24/16 Blood Culture - Final, Complete Escherichia Coli 09/23/16 Blood Culture - Final, Complete NO GROWTH AFTER 5 DAYS 09/24/16 Influenza Virus Type A Antigen - Final, Complete 09/24/16 Influenza Virus Type B Antigen - Final, Complete 09/26/16 Urine Culture - Final, Complete 09/26/16 Anaerobic Culture - Final, Complete 09/24/16 Urine Culture - Final, Complete Escherichia Coli 09/26/16 Gram Stain - Final, Complete 09/26/16 Body Fluid Culture - Final, Complete JESSE DILLON MD Sep 29, 2016 08:52
[2016-09-29] MEDS ORDERED: MAG SULF 1GM/100ML (MAG RUN) 1 GM in APPROPRIATE DILUENT 1 EA IV ONE (09:00)
[2016-09-29] MEDS ORDERED: NICO21PAT TD (09:02)
[2016-09-29] MEDS ORDERED: LEVA500T PO (09:02)
[2016-09-29] MEDS: LevoFLOXacin 500 MG in APPROPRIATE DILUENT 1 EA IV SCH (09:45)
[2016-09-29] MEDS: PARoxetine 20 MG TAB PO SCH (21:00)
[2016-09-29 22:00] VITALS: BP 130/75
[2016-09-30 06:00] VITALS: BP 121/68
[2016-09-30 06:27] LABS: MEAN CORPUSCULAR HEMOGLOBIN 34.7 pg (27.0-33.0); MEAN CORPUSCULAR HGB CONC 35.8 g/dl (32.0-36.5); MEAN CORPUSCULAR VOLUME 96.9 fl (80.0-96.0); RED CELL DISTRIBUTION WIDTH 15.2 % (11.5-14.5); WHITE BLOOD COUNT 2.4 K/mm3 (4.0-10.0)
[2016-09-30 06:42] LABS: ALBUMIN 2.8 GM/DL (3.2-5.2); ALBUMIN/GLOBULIN RATIO 0.93 (1.00-1.93); ALKALINE PHOSPHATASE 89 U/L (45-117); ALT/SGPT 29 U/L (12-78); ANION GAP 7 MEQ/L (8-16); AST/SGOT 11 U/L (15-37); BILIRUBIN,TOTAL 0.4 MG/DL (0.2-1.0); BLOOD UREA NITROGEN 4 MG/DL (7-18); CALCIUM LEVEL 8.4 MG/DL (8.5-10.1); CARBON DIOXIDE LEVEL 31 MEQ/L (21-32); CHLORIDE LEVEL 107 MEQ/L (98-107); CREATININE FOR GFR 0.62 MG/DL (0.55-1.02); GLOMERULAR FILTRATION RATE > 60.0 (>58); GLUCOSE, FASTING 91 MG/DL (70-105); MAGNESIUM LEVEL 1.7 MG/DL (1.8-2.4); POTASSIUM SERUM 3.5 MEQ/L (3.5-5.1); SODIUM LEVEL 145 MEQ/L (136-145); TOTAL PROTEIN 5.8 GM/DL (6.4-8.2)
[2016-09-30] MEDS: LevoFLOXacin 500 MG in APPROPRIATE DILUENT 1 EA IV SCH (08:59)
[2016-09-30] MEDS: ENOXAPARIN 40 MG/0.4 ML SYRINGE (J1650) SC SCH (09:00)
[2016-09-30] MEDS: NICOTINE 21MG/24HR 1 EA TRANSDERMAL TD PRN (09:04)
--- NOTE | 2016-10-01 12:06 | DS.PDOC ---
Discharge Summary General Date of Admission Sep 25, 2016 at 10:01 Date of Discharge Sep 30, 2016 at 11:25 Specialist/Consultants Involve: Chanelle Denis MD Specialist/Consultants Involve [facility] - urology Discharge Summary PROCEDURES PERFORMED DURING STAY: Left nephrostomy tube COMPLICATIONS/CHIEF COMPLAINT: Gastroenteritis ADMISSION DIAGNOSES: 1. Enteritis 2. Cervical cancer 3. Left hydronephrosis 4. Illicit drug use 5. Psoriasis DISCHARGE DIAGNOSES: 1. Bacteremia - E.Coli 2. Enteritis 3. Left hydronephrosis s/p nephrostomy tube 4. Depression 5. Cervical cancer 6. Psoriasis 7. Illicit drug use HISTORY OF PRESENT ILLNESS: Patient is a 45 yo female admitted for vomiting, diarrhea and abdominal pain. HOSPITAL COURSE: Patient was admitted for enteritis, started on IV fluids and antibiotics. Found to be bacteremic growing E. Coli. Source determined to be left pyelonephritis. Left hydrouretronephrosis noted requiring nephrostomy tube placement. Patient continued IV antibiotics, until blood cultures negative. Discharged home with appropriate oral antibiotics. Patient seen by urologist, with outpatient follow up. DISCHARGE MEDICATIONS: Please see below. ALLERGIES: Please see below. PHYSICAL EXAMINATION ON DISCHARGE: VITAL SIGNS: Please see below. GENERAL: NAD HEENT: NC/AT, EOMI NECK: supple CARDIOVASCULAR EXAMINATION: +S1S2, RRR RESPIRATORY EXAMINATION: CTA B/L ABDOMINAL EXAMINATION: soft, NT, +BS EXTREMITIES: no edema PSYCHIATRIC EXAMINATION: AAOx3 LABORATORY DATA: Please see below. IMAGING: VTE Prophylaxis ordered?: yes DISCHARGE CONDITION: stable DISPOSITION: 06 Home Health Service ACTIVITY: as tolerated DIET: regular DISCHARGE PLAN AND INSTRUCTIONS: 1. F/U urology as scheduled 2. f/u interventional radiology as scheduled 3. f/u primary care provider as scheduled TIME SPENT ON DISCHARGE: Greater than 30 minutes. Vital Signs/I&Os Vital Signs Date Time Temp Pulse Resp B/P Pulse Ox O2 Delivery O2 Flow Rate FiO2 09/30/16 06:00 96.6 58 18 121/68 99 Room Air 09/26/16 12:25 2 I&O- Last 24 Hours up to 6 AM 10/01/16 06:00 Intake Total 240 ml Output Total 230 ml Balance 10 ml Microbiology Microbiology 09/27/16 Blood Culture - Preliminary, Resulted No Growth after 72 hours. All specime... 09/27/16 Blood Culture - Preliminary, Resulted No Growth after 72 hours. All specime... 09/24/16 Blood Culture - Final, Complete Escherichia Coli 09/24/16 Blood Culture - Final, Complete Escherichia Coli 09/23/16 Blood Culture - Final, Complete NO GROWTH AFTER 5 DAYS 09/24/16 Influenza Virus Type A Antigen - Final, Complete 09/24/16 Influenza Virus Type B Antigen - Final, Complete 09/26/16 Urine Culture - Final, Complete 09/26/16 Anaerobic Culture - Final, Complete 09/24/16 Urine Culture - Final, Complete Escherichia Coli 09/26/16 Gram Stain - Final, Complete 09/26/16 Body Fluid Culture - Final, Complete Medications Scheduled Levofloxacin Hemihydrate (Levaquin) 500 Mg Tab 500 MG PO DAILY Paroxetine Hydrochloride (Paxil) 40 Mg Tab 40 MG PO QHS Scheduled PRN Albuterol Sulfate (Ventolin Hfa) 200 Puff/8 Gm Aers 2 PUFF INH Q4H PRN PRN SHORTNESS OF BREATH Ibuprofen (Advil) 200 Mg Cap 800 MG PO Q4H PRN PRN PAIN / FEVER Nicotine (Nicotine Transdermal Syst) 21 Mg/24 Hr Dis 1 PATCH TD DAILYPRN PRN PRN NICOTINE WITHDRAWAL Allergies Coded Allergies: No Known Drug Allergy (Verified Allergy, Unknown, 12/16/12) JESSE DILLON MD Oct 01, 2016 12:06
== END 2016-09-30 11:25 | disposition home health service (06) | DRG 443 ==
LOC: M ED 11:56 → M ED INP 19:21 → M MSPAV 20:41 → OBSVTOIN 09-25 10:01
PROVIDERS: ADMIT Hospitalist; ATTEND Internal Medicine
PROC: 0T9130Z Drainage of Left Kidney with Drainage Device, Percutaneous Approach (ICD-10-PCS; principal; 2016-09-26)
DX: N10 Acute pyelonephritis (principal); E87.0 Hyperosmolality and hypernatremia; R78.81 Bacteremia; N13.30 Unspecified hydronephrosis; B96.20 Unspecified Escherichia coli [E. coli] as the cause of diseases classified elsewhere; C53.9 Malignant neoplasm of cervix uteri, unspecified; F32.9 Major depressive disorder, single episode, unspecified; J44.9 Chronic obstructive pulmonary disease, unspecified; F12.10 Cannabis abuse, uncomplicated; L40.9 Psoriasis, unspecified; K52.9 Noninfective gastroenteritis and colitis, unspecified; Z79.899 Other long term (current) drug therapy; E87.6 Hypokalemia; D64.9 Anemia, unspecified

== ENCOUNTER → 2016-10-18 | Outpatient (CLI) | payer OTHER ==
[~2016-10-18] MED LIST changes: +ADVI200C5 PO; +ALBU17IN INH; +LEVA500T PO; +NICO21PAT TD
--- NOTE | 2016-10-18 13:45 | RADONC ---
RADIATION ONCOLOGY FOLLOWUP NOTE: CHART No.: [id number] DATE: 10/18/2016 DIAGNOSIS: Cervix cancer. STAGE: Stage initially II B, now III. ECOG PERFORMANCE STATUS: 1 Ms. 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 Since the patient was seen by us, she had gone to her appointment in [place] for discussion and planning of her brachytherapy procedure. Apparently, she had an outburst there and walked out yelling at the physicians refusing brachytherapy. Since completion of therapy, the patient's disease, apparently has progressed and she has hydronephrosis of the left kidney. She came in today yelling and screaming at us saying that it was our fault and that she tried to tell us on a daily basis that she could not urinate which caused a backup of the urine and sepsis. I have personally reviewed, along with nurse Trino Lin, her records including my notes and the nursing notes. The patient indeed did not ever report difficulty with inability to urinate. Indeed, she says she was urinating every hour. She reported frequency of urination. She did say at times she was not drinking enough fluids and therefore had some discomfort upon urination. She never had spoken to us about this issue. The patient's review of systems is presently positive for a nephrostomy. It is also positive for continued back pain, which is unchanged since time of consultation. It is otherwise not remarkable. She denies nausea, vomiting, fevers, chills, night sweats, diplopia, headaches, anxiety, depression, anorexia, weight loss, visual disturbances, chest pain, bowel difficulties or bone pain other than her back. Physical examination was deferred in light of the patient's hostile and aggressive condition. I made clear to the patient that the only way to get some type of control of this would be to have completed her treatment. She is now 5 weeks post completion of external beam radiation. I have suggested that she consider going back to see the physicians in [place]. We are in the process of contacting those physicians to see if they are willing to see her. The patient once again was too agitated to discuss brachytherapy. I am unsure as to whether her present state of agitation truly has to do with her urinary drainage or whether or not she is focusing on this to avoid thinking about brachytherapy. I made clear to her that all hope of local control will be gone of she does not consider undergoing that procedure. At this point, however, I do not know if she would actually benefit from it and I will defer to the expertise of the APRN oncologist and the brachytherapy physician Dr. Rodriguez and Dr. Martinez. Considering what appears to be progression of disease with development of hydronephrosis and her other issues brachytherapy may not be possible. I am setting her up for routine followup in our office if she chooses to come. At this point I cannot think of anything more we could offer this woman. We have done as much as possible at this point to facilitate completion of therapy. Once again, we are trying to reset her up in [place] to see if there is anything that can be offered there. edited: 10/18/2016 1530 tkf cc: Kellie Watkins MD *Breana Carbajal NP *Vito Rodriguez MD *Philip Martinez MD
== END ==
LOC: M ONCR 10:09
PROVIDERS: ATTEND Radiology Radiation Oncology
DX: C53.9 Malignant neoplasm of cervix uteri, unspecified (principal)
CPT/HCPCS: 81001; 87086; G0463

== ENCOUNTER → 2016-11-22 | Outpatient (CLI) | payer OTHER ==
[~2016-11-22] MED LIST changes: +AZIT500T2 PO; +CIPROFLOXACIN 500 MG TAB As Ordered ONE; +ISOVUE-300 61% 50ML VIAL (Q9967) As Ordered ONE; +PRED1TAB69 PO; +SODIUM BICARBONATE 8.4% INJ 50MEQ 50 ML VIAL As Ordered ONE
--- NOTE | 2016-11-22 16:40 | REPKIM ---
CLINICAL HISTORY: Patient with a history of cervical ca and left pelvic extension, hydronephrosis has a nephrostomy urinary diversion tube on the left. The patient presents for nephrostomy catheter check and change for routine maintenance. PROCEDURE: Nephrostomy catheter check and change on the left INTERVENTIONALIST: Chanelle Denis MD MEDICATIONS: Local Lidocaine, Cipro 500 mg EBL: 1 mL CONTRAST: 10 mL Isovue 300 DEVICE USED: 8.5 F Nephrostomy (Resolve) catheter Lot#[id number] FLUORO TIME: 2.5 minutes Description of procedure: The risks, benefits, and alternatives of the procedure were discussed with the patient and informed written consent was obtained. The patient was brought to the interventional radiology suite where a timeout procedure was performed. The patient was placed in the prone position. The existing indwelling catheter and the area surrounding the insertion site were prepped and draped with standard technique. Contrast was injected through the existing 8.5F nephrostomy catheter. This showed the catheter is patent with its tip in the renal pelvis. The pelvicalyceal system has decompressed. A guidewire was advanced through the existing drainage catheter into the renal pelvis. The existing catheter was unlocked and removed over the guidewire. A new 8.5F nephrostomy catheter was then advanced over the guidewire. The guidewire was removed and the distal loop of the nephrostomy drainage catheter was formed and locked in the renal pelvis. Contrast was hand injected, confirming satisfactory drainage catheter positioning. The drainage catheter exit site was covered with a sterile dressing. The nephrostomy drainage catheter was flushed and connected to a gravity drainage bag. The patient tolerated the procedure well with no immediate complications. This procedure was performed using fluoroscopy. Dr. Denis was present. Description of findings: The new nephrostomy catheter is in appropriate positioning and works well. IMPRESSION: Successful exchange of Nephrostomy urinary diversion tube on the left as discussed above. Plan: Routine catheter exchange in approximately 10-12 weeks or earlier if signs of tube dysfunction were to occur. cc: MD Adalberto Hamilton MD MTDD
== END | disposition home or self-care (01) ==
LOC: M IRPRO 11:27
DX: N13.30 Unspecified hydronephrosis (principal); Z85.41 Personal history of malignant neoplasm of cervix uteri
CPT/HCPCS: 50435; C1729; C1769; Q9967

== ENCOUNTER 2016-11-27 09:30 | Emergency (ER) | payer OTHER ==
[~2016-11-27] VITALS: Ht 172.7 cm; Wt 61.2 kg
[~2016-11-27 09:30] MED LIST changes: -AZIT500T2 PO; -CIPROFLOXACIN 500 MG TAB As Ordered ONE; -ISOVUE-300 61% 50ML VIAL (Q9967) As Ordered ONE; -PRED1TAB69 PO; -SODIUM BICARBONATE 8.4% INJ 50MEQ 50 ML VIAL As Ordered ONE
[2016-11-27 09:32] VITALS: BP 116/77
[2016-11-27] MEDS ORDERED: AZIT500T2 PO (09:48)
[2016-11-27] MEDS ORDERED: PRED1TAB69 PO (09:48)
--- NOTE | 2016-11-27 10:24 | ED PDOC ---
Provider Note PT PRESENTS TO THE ED TODAY STATING SHE HAS STAGE III CERVICAL AND OVARIAN CANCER. DUE TO RECENT URINARY RETENTION AND SEPSIS FROM HER ILLNESS, AND HAS A NEPHROSTOMY TUBE PLACED. PT STATES 4 DAYS AGO, A NURSE CAME TO CHANGE HER TUBING AND WHEN THEY CHANGED IT, THEY REPLACED IT WITH A MUCH LONGER TUBE THAT HANGS DOWN TO HER FEET. PT STATES THIS TUBING IS PULLING ON HER NEPHROSTOMY SITE AND IS CAUSING PAIN AND IS VERY INCONVENIENT. PT REQUESTING THE ORIGINAL TUBING AND BAG SHE HAD POST-OP WHICH WAS WORN AROUND HER WAIST AND WAS MUCH MORE CONVENIENT AND DID NOT PULL ON THE NEPHROSTOMY SITE. PT ALSO STATES IS CURRENTLY ON A Z-RUDDY FOR A URI WELL. ANH ZARATE PA-C Nov 27, 2016 10:24
== END 2016-11-27 11:07 | disposition home or self-care (01) ==
LOC: M ED 10:12
DX: Z43.6 Encounter for attention to other artificial openings of urinary tract (principal); J44.9 Chronic obstructive pulmonary disease, unspecified; F32.9 Major depressive disorder, single episode, unspecified; C56.9 Malignant neoplasm of unspecified ovary; C53.9 Malignant neoplasm of cervix uteri, unspecified; Z87.440 Personal history of urinary (tract) infections; Z86.19 Personal history of other infectious and parasitic diseases; Z79.899 Other long term (current) drug therapy; Z79.2 Long term (current) use of antibiotics; Z79.52 Long term (current) use of systemic steroids

== ENCOUNTER → 2016-12-05 | Day surgery (SDC) | payer OTHER ==
[~2016-12-05] VITALS: Ht 172.7 cm; Wt 61.2 kg
[~2016-12-05] MED LIST changes: +AZIT500T2 PO; +LR 1,000 ML IV SCH; +PRED1TAB69 PO
[2016-12-05 12:40] VITALS: BP 103/67
[2016-12-05 12:58] LABS: MEAN CORPUSCULAR HEMOGLOBIN 34.8 pg (27.0-33.0); MEAN CORPUSCULAR HGB CONC 34.5 g/dl (32.0-36.5); MEAN CORPUSCULAR VOLUME 100.8 fl (80.0-96.0); RED CELL DISTRIBUTION WIDTH 12.5 % (11.5-14.5); WHITE BLOOD COUNT 4.2 K/mm3 (4.0-10.0)
[2016-12-05 12:59] LABS: INR 0.91
[2016-12-05 13:16] LABS: CONTROL LINE HCG INT CTR LINE PRESENT
[2016-12-05 13:18] LABS: ANION GAP 7 MEQ/L (8-16); BLOOD UREA NITROGEN 13 MG/DL (7-18); CARBON DIOXIDE LEVEL 28 MEQ/L (21-32); CHLORIDE LEVEL 109 MEQ/L (98-107); CREATININE FOR GFR 0.73 MG/DL (0.55-1.02); GLOMERULAR FILTRATION RATE > 60.0 (>58); GLUCOSE, FASTING 90 MG/DL (70-105); POTASSIUM SERUM 3.1 MEQ/L (3.5-5.1); SODIUM LEVEL 144 MEQ/L (136-145)
== END ==
LOC: M SDC 12:10
PROVIDERS: ATTEND Urology
DX: Z53.29 Procedure and treatment not carried out because of patient's decision for other reasons (principal); N13.30 Unspecified hydronephrosis

== ENCOUNTER → 2017-01-16 | Outpatient (CLI) | payer OTHER ==
[~2017-01-16] MED LIST changes: +CIPR500T3 PO; -LR 1,000 ML IV SCH; +PERCOCET PO
[2017-01-16 15:18] LABS: MEAN CORPUSCULAR HEMOGLOBIN 34.3 pg (27.0-33.0); MEAN CORPUSCULAR HGB CONC 34.4 g/dl (32.0-36.5); MEAN CORPUSCULAR VOLUME 99.7 fl (80.0-96.0); RED CELL DISTRIBUTION WIDTH 12.3 % (11.5-14.5); WHITE BLOOD COUNT 5.5 K/mm3 (4.0-10.0)
[2017-01-16 15:28] LABS: INR 0.85
[2017-01-16 16:03] LABS: CALCIUM LEVEL 8.4 MG/DL (8.5-10.1); CREATININE FOR GFR 1.05 MG/DL (0.55-1.02); GLOMERULAR FILTRATION RATE 59.8 (>58); POTASSIUM SERUM 3.9 MEQ/L (3.5-5.1)
== END ==
LOC: M LAB 14:43
PROVIDERS: ATTEND Nurse Practitioner Women's Health
DX: Z01.818 Encounter for other preprocedural examination (principal); N13.30 Unspecified hydronephrosis; N39.0 Urinary tract infection, site not specified

== ENCOUNTER → 2017-01-17 | Day surgery (SDC) | payer OTHER ==
[~2017-01-17] VITALS: Ht 175.3 cm; Wt 61.2 kg
[~2017-01-17] MED LIST changes: +CONRAY-60 60% 50ML VIAL (Q9961) As Ordered ONE; +KETOROLAC 60 MG/2 ML VIAL (J1885) As Ordered ONE; +LR 1,000 ML IV ONE; +LR 1,000 ML IV SCH; +MIDAZOLAM INJ 2 MG/2 ML VIAL (J2250) As Ordered ONE; +ONDANSETRON 4MG/2ML VIAL (J2405) As Ordered ONE; +ONDANSETRON 4MG/2ML VIAL (J2405) IV PRN; +ceFAZolin 2 GM/D5W 50 ML IV BAG (J0690) As Ordered ONE; +dexameTHASONE 4 MG/ML 1ML VIAL (J1100) As Ordered ONE; +fentaNYL 100 MCG/2 ML INJECTION (J3010) As Ordered ONE; +fentaNYL 100 MCG/2 ML INJECTION (J3010) IV PRN
[2017-01-17 14:02] LABS: CONTROL LINE HCG INT CTR LINE PRESENT
[2017-01-17 17:15] VITALS: BP 139/76
--- NOTE | 2017-01-18 09:07 | REP ---
C-ARM VIEWS DURING LEFT RETROGRADE PYELOGRAM: Two C-arm views are performed. There is injection of contrast into the left ureter and pelvicalyceal system. There appears to be a left nephrostomy tube in place. Pelvicalyceal system is not completely distended and no completely visualized. Left ureteral stent is seen with the proximal end coiled in the region of the left renal pelvis and the distal end coiled in the region of the urinary bladder. 22 seconds fluoroscopy time utilized. Signed by Carlos Kate MD 01/19/2017 05:09 P
--- NOTE | 2017-01-18 10:14 | RO ---
DATE OF PROCEDURE: 01/17/2017 PREPROCEDURE DIAGNOSIS: Left hydronephrosis. POSTPROCEDURE DIAGNOSIS: Left hydronephrosis. PROCEDURE: Cystoscopy, plus left retrograde pyelogram, plus left double J stent placement #6-Hungarian Macon Cook. SURGEON: Dr. Adalberto Bruno SPRAY CEMENTER: Paul, PGY3 resident. ANESTHESIA: General. COMPLICATIONS: None. FINDINGS: Left hydronephrosis and left nephrostomy tube. HISTORY OF PRESENT ILLNESS: 46-year-old female patient that has a left hydronephrosis with a history of extrinsic compression of the left ureter. The patient has a left nephrostomy tube. Today, we have consented her for a cystoscopy plus left retrograde pyelogram, possible left double J stent placement. DESCRIPTION OF PROCEDURE: With patient under general anesthesia in supine modified low lithotomy position, after prepping and draping the area of concern which included the entire genitalia and abdomen. In introduced the 3-in-1 Hungarian Fuentes cystoscope with 80 degree lens under visual endoscopic guidance. The urethra and bladder neck were totally normal. The bladder had no tumors, no stones, no foreign objects. Both ureteral orifices were excreting clear urine. We then proceeded to the retrograde pyelogram on the left side. The ureter shows a thin ureter. No obstruction at all. No hydronephrosis. The nephrostomy tube was in good position. At that moment in time, we decided to pass the guidewire and place a #6-Hungarian Macon Cook double J stent which casts very easy without any compression. The curl could be seen in the kidney and the curl in the bladder guidewire out. PLAN: The patient will actually have the nephrostomy tube plugged. If the patient tolerates the stent well and there is no pain, we will actually take the nephrostomy tube in 2 weeks. She will have antibiotics, ciprofloxacin 500 mg one tablet by mouth twice a day for 10 days and Tylenol for pain if needed. If the patient tolerates the left double J stent well, we will keep it and at the exchange, we will do another retrograde pyelogram. If the ureter is totally patent without any strictures, we will possibly decided to actually discontinue the double J stent. There is a very high possibility that the stent can come out and the ureter can actually be preserved patent, since we have seen that the compression towards the left ureter has diminished a lot.
== END | disposition home or self-care (01) ==
LOC: M SDC 11:50
PROVIDERS: ATTEND Urology
DX: N13.30 Unspecified hydronephrosis (principal); L40.9 Psoriasis, unspecified; F41.9 Anxiety disorder, unspecified; J44.9 Chronic obstructive pulmonary disease, unspecified; F17.210 Nicotine dependence, cigarettes, uncomplicated; F12.10 Cannabis abuse, uncomplicated; Z92.21 Personal history of antineoplastic chemotherapy; Z92.3 Personal history of irradiation; Z79.899 Other long term (current) drug therapy
CPT/HCPCS: 52332; 74420; 84703; C1726; C2617; J0690; J1100; J1885; J2250; J2405; J3010; Q9961

== ENCOUNTER 2017-01-28 06:43 | Emergency (ER) | payer OTHER ==
[~2017-01-28] VITALS: Ht 172.7 cm; Wt 63.5 kg
[~2017-01-28 06:43] MED LIST changes: -CONRAY-60 60% 50ML VIAL (Q9961) As Ordered ONE; -KETOROLAC 60 MG/2 ML VIAL (J1885) As Ordered ONE; -LR 1,000 ML IV ONE; -LR 1,000 ML IV SCH; -MIDAZOLAM INJ 2 MG/2 ML VIAL (J2250) As Ordered ONE; -ONDANSETRON 4MG/2ML VIAL (J2405) As Ordered ONE; -ONDANSETRON 4MG/2ML VIAL (J2405) IV PRN; -ceFAZolin 2 GM/D5W 50 ML IV BAG (J0690) As Ordered ONE; -dexameTHASONE 4 MG/ML 1ML VIAL (J1100) As Ordered ONE; -fentaNYL 100 MCG/2 ML INJECTION (J3010) As Ordered ONE; -fentaNYL 100 MCG/2 ML INJECTION (J3010) IV PRN
[2017-01-28 06:59] VITALS: BP 119/70
[2017-01-28] MEDS ORDERED: NS 1,000 ML IV ONE (07:45)
--- NOTE | 2017-01-28 07:51 | ED PDOC ---
Post-Departure Follow-Up PT STATES, "I CAN'T PEE." STATES HX OF LEFT BLOCKAGE REQUIRING NEPHROSTOMY TUBE. HAD A STENT PLACED BY DR. COLLINS 2 WEEKS AGO AND STATES HER CHRONIC ISSUE OF NOT BEING ABLE TO URINATE IS WORSE OVER THE PAST 2 WEEKS. STATES DOES NOT EAT OR DRINK HARDLY ANYTHING, "BECAUSE I'M SCARED TO DRINK BECAUSE IT HURTS. " STATES DIARRHEA FEW DAYS AGO, NAUSEA, VOMITING. ANH ZARATE PA-C January 28, 2017 07:51
[2017-01-28 08:28] LABS: BASO # 0.1 K/mm3 (0.0-0.2); BASO % 0.8 % (0.0-1.0); EOS # 0.6 K/mm3 (0.0-0.50); EOS % 7.3 % (0.0-3.0); LARGE UNSTAINED CELL # 0.1 K/mm3 (0.0-0.4); LARGE UNSTAINED CELL % 1.4 % (0.0-4.0); LYMPH # 1.1 K/mm3 (1.5-4.5); LYMPH % 12.2 % (24.0-44.0); MEAN CORPUSCULAR HEMOGLOBIN 33.9 pg (27.0-33.0); MEAN CORPUSCULAR HGB CONC 35.1 g/dl (32.0-36.5); MEAN CORPUSCULAR VOLUME 96.5 fl (80.0-96.0); MONO # 0.5 K/mm3 (0.0-0.8); MONO % 6.1 % (0.0-5.0); NEUTROPHILS # 5.9 K/mm3 (1.8-7.7); NEUTROPHILS % 72.3 % (36.0-66.0); PLATELET COUNT, AUTOMATED 378 k/mm3 (150-450); RED CELL DISTRIBUTION WIDTH 12.1 % (11.5-14.5); WHITE BLOOD COUNT 8.1 K/mm3 (4.0-10.0)
[2017-01-28 08:32] LABS: ANION GAP 8 MEQ/L (8-16); BLOOD UREA NITROGEN 17 MG/DL (7-18); CALCIUM LEVEL 8.8 MG/DL (8.5-10.1); CARBON DIOXIDE LEVEL 28 MEQ/L (21-32); CHLORIDE LEVEL 106 MEQ/L (98-107); CREATININE FOR GFR 0.85 MG/DL (0.55-1.02); GLOMERULAR FILTRATION RATE > 60.0 (>58); GLUCOSE, FASTING 99 MG/DL (70-105); SODIUM LEVEL 142 MEQ/L (136-145)
--- NOTE | 2017-01-28 10:47 | REP ---
CT ABDOMEN AND PELVIS WITHOUT IV CONTRAST: CT abdomen and pelvis was performed without IV contrast, sagittal and coronal reconstruction images. Comparison made with prior study of 09/25/2016. The visualized lung bases demonstrate no infiltrate. The liver, gallbladder, spleen, right adrenal and pancreas are grossly unremarkable. There is an adenoma of the left adrenal gland which measures about 1.5 cm in diameter. There is a right renal cyst again noted inferiorly. Left kidney demonstrates a nephrostomy tube which appears to be in good position in the left pelvicaliceal system. There is also a left ureteral stent with the proximal end coiled in the region of the left renal pelvis and the distal end coiled in the urinary bladder. There is no evidence of left hydroureteronephrosis. Only a small amount of fluid is seen in the bladder. There are mild atherosclerotic calcifications of the abdominal aorta without aneurysm. I see no adenopathy. There is no free air or free fluid. I see no bowel wall thickening. The appendix is normal. I see no evidence of a pelvic mass. IMPRESSION: Left nephrostomy tube and left ureteral stent appear to be in good position. There is no hydroureteronephrosis. No other acute abnormality detected. Signed by Carlos Kate MD 01/28/2017 07:53 P
== END 2017-01-28 09:21 | disposition home or self-care (01) ==
LOC: M ED 09:00
DX: N39.0 Urinary tract infection, site not specified (principal); Z96.0 Presence of urogenital implants; J45.909 Unspecified asthma, uncomplicated; Z85.43 Personal history of malignant neoplasm of ovary; F39 Unspecified mood [affective] disorder; F19.10 Other psychoactive substance abuse, uncomplicated; Z79.899 Other long term (current) drug therapy; F17.210 Nicotine dependence, cigarettes, uncomplicated

== ENCOUNTER → 2017-03-07 | Outpatient (CLI) | payer OTHER ==
[2017-03-07 13:45] LABS: BLOOD UREA NITROGEN 13 MG/DL (7-18); CREATININE FOR GFR 0.83 MG/DL (0.55-1.02); GLOMERULAR FILTRATION RATE > 60.0 (>58)
== END ==
LOC: M LAB 12:13
PROVIDERS: ATTEND Internal Medicine
DX: C53.9 Malignant neoplasm of cervix uteri, unspecified (principal)

== ENCOUNTER → 2017-03-07 | Outpatient (CLI) | payer OTHER ==
[2017-03-07 13:45] LABS: ANION GAP 7 MEQ/L (8-16); BLOOD UREA NITROGEN 13 MG/DL (7-18); CALCIUM LEVEL 8.5 MG/DL (8.5-10.1); CARBON DIOXIDE LEVEL 29 MEQ/L (21-32); CHLORIDE LEVEL 106 MEQ/L (98-107); CREATININE FOR GFR 0.82 MG/DL (0.55-1.02); GLOMERULAR FILTRATION RATE > 60.0 (>58); GLUCOSE, FASTING 111 MG/DL (70-105); POTASSIUM SERUM 3.4 MEQ/L (3.5-5.1); SODIUM LEVEL 142 MEQ/L (136-145)
== END ==
LOC: M LAB 12:16
PROVIDERS: ATTEND Nurse Practitioner Women's Health
DX: N13.30 Unspecified hydronephrosis (principal)

== ENCOUNTER → 2017-03-08 | Outpatient (CLI) | payer OTHER ==
[~2017-03-08] MED LIST changes: +ISOVUE-370 76% 100ML VIAL (Q9967) As Ordered ONE
--- NOTE | 2017-03-09 05:49 | REP ---
Clinical: History of cervical carcinoma. Technique: Axial contrast enhanced images from the thoracic inlet to the upper abdomen using 100 ml Isovue 370 intravenous contrast material with coronal and sagittal re-formations. Findings: The bilateral lung handy are well-aerated, symmetric, and without focal consolidation, obvious nodule or mass lesion. No pleural effusion/reaction or pneumothorax. Tracheobronchial tree is patent. No axillary, hilar, or mediastinal adenopathy. Mediastinum demonstrates normal thoracic aorta, pulmonary vasculature and heart/pericardium. Surrounding musculoskeletal structures are intact. Impression: 1. No acute mediastinal or pleuroparenchymal process appreciated. 2. Specifically, no obvious focal nodule or mass lesion to suggest metastatic disease. Signed by Rizwan Lewis MD 03/09/2017 05:41 A
--- NOTE | 2017-03-09 05:57 | REP ---
Clinical: History of cervical cancer for follow up and reevaluation. Technique: Axial contrast enhanced images from the lung bases to the pubic symphysis using 100 ml Isovue 370 intravenous contrast material with precontrast and delayed images of the abdomen as well as coronal and sagittal re-formations. Comparison: 10/14/2015. Findings: Lung bases are clear. Visualized heart and pericardium normal. Liver, spleen, pancreas, gallbladder, right adrenal gland are normal. 1.4 cm low density left adrenal lesion on noncontrast images likely represents adenoma and is similar to prior examination. 2.2 cm right renal cyst and 7 mm left renal cyst are identified and essentially unchanged compared to 2016. The enteric system is without obstruction or acute inflammatory process. Pelvis demonstrates normal bladder and age-appropriate uterus/adnexa. Subtle stranding throughout the pelvis and vague haziness to the visualized organs in the pelvis including bowel, bladder and uterus suggest the possibility of postradiation type change and less likely reflect an acute inflammatory process. No pelvic fluid or ascites. No significant adenopathy. No free air. Mild atherosclerotic changes of the aorta and vasculature noted without aneurysm. Musculoskeletal structures are intact and without focal osseous abnormality. Degenerative changes to the lumbosacral spine noted. Impression: 1. A very subtle stranding to the pelvic structures and pelvic fat likely represents postradiation/post-therapeutic changes and less likely a diffuse mild acute inflammatory process. 2. Renal cysts unchanged. 3. A left adrenal lesion appears low density on noncontrast images and similar to prior examination suggesting benign adrenal adenoma. 4. No ascites, intraperitoneal/retroperitoneal adenopathy or obvious mass lesion within the abdomen and pelvis to suggest metastatic disease. Signed by Rizwan Lewis MD 03/09/2017 05:49 A
== END ==
LOC: M RAD 11:47
PROVIDERS: ATTEND Internal Medicine
DX: C53.9 Malignant neoplasm of cervix uteri, unspecified (principal); N28.1 Cyst of kidney, acquired; E27.9 Disorder of adrenal gland, unspecified

== ENCOUNTER → 2017-06-08 | Outpatient (CLI) | payer OTHER ==
[~2017-06-08] MED LIST changes: +IBUP-1022 PO; -IBUP600T26 PO; +LEVA1TAB2 PO; -LEVA500T PO; +PAXI40TA10 PO; -PERC10TA17 PO; +PERC10TA26 PO; +PERC5TAB12 PO; -PERC5TAB6 PO
--- NOTE | 2017-06-08 13:41 | REP ---
CT of the chest with IV contrast: Comparison is the most recent prior study of 03/08 2017. There are no lung masses, nodules, infiltrates or effusions. The lung handy are clear and unchanged. There is no mediastinal, hilar or axillary lymph node enlargement. This is unchanged. The thoracic aorta is unremarkable. Cardiac size normal. There is no pericardial effusion. There is a round dense lesion in the T10 vertebral body on the right. This could be a blastic metastasis or could be a bone island. It appears larger than on 03/08/2017, measuring 8 ml today and 4 mm on 03/08/2017. Consider radionuclide bone scan or MRI for follow up. Impression: There is a focal dense lesion in the T10 vertebral body that has increased in size of 03/08/2017 this day blastic metastasis or a bone island. Consider follow-up radionuclide bone scan or MRI. Otherwise, there is no change from the prior study. There is no adenopathy. No lung masses. No infiltrates or effusions Signed by Carlos Helms MD 06/08/2017 01:32 P
--- NOTE | 2017-06-08 13:48 | REP ---
CT abdomen and pelvis without and with IV contrast and without bowel contrast: Comparison is 03/08/2017. Studies performed in continuity with the chest CT this same day utilizing the same intravenous contrast bolus. The hepatic parenchyma is homogeneous. The gallbladder, pancreas and spleen are unremarkable. The low density left adrenal nodule is unchanged with CT density of -22 Hounsfield units, compatible with benign adenoma as previously. The right adrenal is unremarkable. The kidneys and abdominal aorta are unremarkable. There is no retroperitoneal adenopathy. No mesenteric adenopathy or ascites. There is a cyst in the lower pole of the right kidney. This is unchanged. Pelvis: The stranding densities noticed in the pelvic fat planes previously have significantly decreased. There is wall thickening of the sigmoid colon. This is nonspecific and could be related to radiation colitis, infectious or inflammatory colitis or could be artifact from under distension. There is no ascites or adenopathy. The uterus, adnexa and urinary bladder are unremarkable. Impression: No evidence of adenopathy or metastatic disease. The and mild stranding noted in the pelvic fat previously has decreased. Wall thickening of the sigmoid colon is nonspecific, postradiation colitis versus infectious versus inflammatory colitis versus artifact from under distension. Right renal cyst. No lytic, blastic or destructive skeletal changes. Signed by Carlos Helms MD 06/08/2017 01:39 P
== END ==
LOC: M RAD 11:39
PROVIDERS: ATTEND Internal Medicine
DX: C53.9 Malignant neoplasm of cervix uteri, unspecified (principal); N28.1 Cyst of kidney, acquired
CPT/HCPCS: 71260; 74178; Q9967

== ENCOUNTER → 2017-06-21 | Outpatient (CLI) | payer OTHER ==
[~2017-06-21] MED LIST changes: -ISOVUE-370 76% 100ML VIAL (Q9967) As Ordered ONE
[2017-06-21 15:31] LABS: BASO # 0.1 10^3/uL (0.0-0.2); BASO % 1.2 % (0.0-1.0); EOS # 0.2 10^3/uL (0.0-0.50); EOS % 3.6 % (0.0-3.0); LYMPH % 23.2 % (24.0-44.0); MEAN CORPUSCULAR HEMOGLOBIN 32.8 pg (27.0-33.0); MEAN CORPUSCULAR HGB CONC 33.9 g/dl (32.0-36.5); MEAN CORPUSCULAR VOLUME 96.6 fl (80.0-96.0); MONO # 0.4 10^3/uL (0.0-0.8); MONO % 8.4 % (0.0-5.0); NEUTROPHILS # 2.6 10^3/uL (1.8-7.7); NEUTROPHILS % 62.6 % (36.0-66.0); RED CELL DISTRIBUTION WIDTH 12.5 % (11.5-14.5); WHITE BLOOD COUNT 4.2 10^3/uL (4.0-10.0)
[2017-06-21 15:53] LABS: ALBUMIN 3.6 GM/DL (3.2-5.2); ALBUMIN/GLOBULIN RATIO 1.24 (1.00-1.93); ALKALINE PHOSPHATASE 104 U/L (45-117); ALT/SGPT 20 U/L (12-78); ANION GAP 2 MEQ/L (8-16); AST/SGOT 16 U/L (15-37); BILIRUBIN,TOTAL 0.3 MG/DL (0.2-1.0); BLOOD UREA NITROGEN 13 MG/DL (7-18); CALCIUM LEVEL 8.7 MG/DL (8.5-10.1); CARBON DIOXIDE LEVEL 32 MEQ/L (21-32); CHLORIDE LEVEL 107 MEQ/L (98-107); CREATININE FOR GFR 0.82 MG/DL (0.55-1.02); GLOMERULAR FILTRATION RATE > 60.0 (>58); GLUCOSE, FASTING 90 MG/DL (70-105); POTASSIUM SERUM 4.2 MEQ/L (3.5-5.1); SODIUM LEVEL 141 MEQ/L (136-145); TOTAL PROTEIN 6.5 GM/DL (6.4-8.2)
== END ==
LOC: M LAB 14:11
PROVIDERS: ATTEND Internal Medicine
DX: C53.9 Malignant neoplasm of cervix uteri, unspecified (principal)

== ENCOUNTER → 2017-06-21 | Outpatient (CLI) | payer OTHER ==
[2017-06-21 15:31] LABS: BASO # 0.1 10^3/uL (0.0-0.2); BASO % 1.2 % (0.0-1.0); EOS # 0.1 10^3/uL (0.0-0.50); EOS % 3.3 % (0.0-3.0); LYMPH % 22.7 % (24.0-44.0); MEAN CORPUSCULAR HEMOGLOBIN 32.1 pg (27.0-33.0); MEAN CORPUSCULAR HGB CONC 33.1 g/dl (32.0-36.5); MEAN CORPUSCULAR VOLUME 96.9 fl (80.0-96.0); MONO # 0.4 10^3/uL (0.0-0.8); MONO % 8.6 % (0.0-5.0); NEUTROPHILS # 2.6 10^3/uL (1.8-7.7); NEUTROPHILS % 63.2 % (36.0-66.0); RED CELL DISTRIBUTION WIDTH 12.4 % (11.5-14.5); WHITE BLOOD COUNT 4.2 10^3/uL (4.0-10.0)
[2017-06-21 16:09] LABS: ALBUMIN 3.5 GM/DL (3.2-5.2); ALKALINE PHOSPHATASE 99 U/L (45-117); ALT/SGPT 20 U/L (12-78); ANION GAP 8 MEQ/L (8-16); AST/SGOT 15 U/L (15-37); BILIRUBIN,TOTAL 0.3 MG/DL (0.2-1.0); BLOOD UREA NITROGEN 14 MG/DL (7-18); CALCIUM LEVEL 8.1 MG/DL (8.5-10.1); CARBON DIOXIDE LEVEL 28 MEQ/L (21-32); CHLORIDE LEVEL 105 MEQ/L (98-107); CHOLESTEROL LEVEL 202 MG/DL (<200); CREATININE FOR GFR 0.79 MG/DL (0.55-1.02); FREE T4 0.84 NG/DL (0.76-1.46); GLOMERULAR FILTRATION RATE > 60.0 (>58); GLUCOSE, FASTING 91 MG/DL (70-105); POTASSIUM SERUM 3.8 MEQ/L (3.5-5.1); SODIUM LEVEL 141 MEQ/L (136-145); TOTAL PROTEIN 6.2 GM/DL (6.4-8.2); TRIGLYCERIDES LEVEL 169 MG/DL (<150)
== END ==
LOC: M LAB 14:13
PROVIDERS: ATTEND Nurse Practitioner Adult Health
DX: F31.9 Bipolar disorder, unspecified (principal); E55.9 Vitamin D deficiency, unspecified; D44.12 Neoplasm of uncertain behavior of left adrenal gland; C53.9 Malignant neoplasm of cervix uteri, unspecified; Z79.899 Other long term (current) drug therapy

== ENCOUNTER → 2017-06-21 | Outpatient (CLI) | payer OTHER | LOC: M LAB 14:08 | PROVIDERS: ATTEND Dermatology | DX: L40.0 Psoriasis vulgaris (principal); Z79.899 Other long term (current) drug therapy ==

== ENCOUNTER → 2017-06-27 | Outpatient (CLI) | payer OTHER ==
[~2017-06-27] MED LIST changes: +PROHANCE 279.3MG/ML 15ML VIAL (A9576) As Ordered ONE
--- NOTE | 2017-06-27 17:02 | REP ---
MR THORACIC SPINE WITHOUT AND WITH CONTRAST: HISTORY: Uterine carcinoma. CONTRAST: ProHance 14 mL. A small left paracentral disc protrusion is present at the T5-6 level. There is minimal effacement of the thecal sac without spinal cord compression. The T5 neural foramina are patent. A small left paracentral disc protrusion is present at the T6-7 level. There is minimal effacement of the thecal sac without spinal cord compression. The T6 neural foramina are patent. A small central disc protrusion is present at the T7-8 level. There is minimal effacement of the thecal sac without spinal cord compression. The T7 neural foramina are patent. There is no other disc bulge or herniation. The remaining neural foramina are patent. The spinal cord is normal in signal intensity. A 9 mm focus of decrease signal intensity on T1 and T2 weighted images is present in the T10 vertebral body. There is mild peripheral enhancement with contrast. The T10 vertebral body is normal in height. There are no other focal areas of enhancement. Normal signal intensity is present in the remaining thoracic vertebral bodies. IMPRESSION: 1. Small disc protrusion at the T5-6 through T7-8 levels without spinal cord compression. 2. There is a 9 mm enhancing lesion in the T10 vertebral body suspicious for a metastasis. Signed by Bharat Razo MD 06/27/2017 05:05 P
== END ==
LOC: M RAD 15:26
PROVIDERS: ATTEND Internal Medicine
DX: C53.9 Malignant neoplasm of cervix uteri, unspecified (principal)
CPT/HCPCS: 72157; A9576

== ENCOUNTER → 2017-11-12 | Outpatient (CLI) | payer OTHER ==
[2017-11-12 14:26] LABS: BASO % 0.9 % (0.0-1.0); EOS # 0.1 10^3/uL (0.0-0.50); EOS % 1.5 % (0.0-3.0); HEMOGLOBIN 13.9 g/dl (12.0-16.0); IMMATURE GRANULOCYTE % 0.7 % (0-3.0); LYMPH # 0.8 10^3/uL (1.5-4.5); LYMPH % 17.9 % (24.0-44.0); MEAN CORPUSCULAR HEMOGLOBIN 32.8 pg (27.0-33.0); MEAN CORPUSCULAR HGB CONC 34.8 g/dl (32.0-36.5); MEAN CORPUSCULAR VOLUME 94.3 fl (80.0-96.0); MONO # 0.3 10^3/uL (0.0-0.8); NEUTROPHILS # 3.3 10^3/uL (1.8-7.7); PLATELET COUNT, AUTOMATED 250 10^3/uL (150-450); RED BLOOD COUNT 4.24 10^6/uL (4.00-5.40); WHITE BLOOD COUNT 4.5 10^3/uL (4.0-10.0)
[2017-11-12 14:54] LABS: ALBUMIN 3.9 GM/DL (3.2-5.2); ALBUMIN/GLOBULIN RATIO 1.56 (1.00-1.93); ALKALINE PHOSPHATASE 94 U/L (45-117); ALT/SGPT 17 U/L (12-78); ANION GAP 5 MEQ/L (8-16); AST/SGOT 17 U/L (7-37); BILIRUBIN,TOTAL 0.4 MG/DL (0.2-1.0); BLOOD UREA NITROGEN 10 MG/DL (7-18); CALCIUM LEVEL 8.7 MG/DL (8.5-10.1); CARBON DIOXIDE LEVEL 32 MEQ/L (21-32); CHLORIDE LEVEL 105 MEQ/L (98-107); CREATININE FOR GFR 0.89 MG/DL (0.55-1.30); GLOMERULAR FILTRATION RATE > 60.0 (>58); GLUCOSE, FASTING 109 MG/DL (70-100); SODIUM LEVEL 142 MEQ/L (136-145); TOTAL PROTEIN 6.4 GM/DL (6.4-8.2)
== END ==
LOC: M RAD 10:12
DX: C79.51 Secondary malignant neoplasm of bone (principal); C53.9 Malignant neoplasm of cervix uteri, unspecified; M19.011 Primary osteoarthritis, right shoulder; M19.012 Primary osteoarthritis, left shoulder
CPT/HCPCS: 80053

== ENCOUNTER → 2017-11-13 | Outpatient (CLI) | payer OTHER ==
[~2017-11-13] MED LIST changes: -/QUET25TA PO; -ADVI200C5 PO; -ALBU17IN INH; -ALBUPOW9 INH; -ALBUTEROL NEB INH; -ALBUTEROL SULFATE INH; -AZIT250T PO; -AZIT500T2 PO; -CIPR500T3 PO; -FLU; -IBUP-1022 PO; +ISOVUE-370 76% 100ML VIAL (Q9967) As Ordered; -LEVA1TAB2 PO; -LEVO750T PO; -NICO14PA EXT; -NICO21DI26 EXT; -NICO21PAT TD; -PAXI20TA3 PO; -PAXI40TA10 PO; -PAXI40TA2 PO; -PERC10TA26 PO; -PERC5TAB12 PO; -PERCOCET PO; -PRED10TA2 PO; -PRED1TAB69 PO; -PRED20TA PO; -PROAAER IN; -PROHANCE 279.3MG/ML 15ML VIAL (A9576) As Ordered ONE; -PROZ10CA7 PO; -RISP0.5T23 PO; -RISP4TAB33 PO; -ROBITUSSIN COLD; -SILV-4 TOP; -TRAZ50TA2 PO; -WELL150T PO; -XANA0.25 PO; -ZITHTAB PO
== END ==
LOC: M RAD 09:07
DX: C53.9 Malignant neoplasm of cervix uteri, unspecified (principal); C79.51 Secondary malignant neoplasm of bone
CPT/HCPCS: Q9967

== ENCOUNTER → 2018-02-25 | Outpatient (CLI) | payer OTHER | LOC: M RAD 08:31 | DX: C53.9 Malignant neoplasm of cervix uteri, unspecified (principal) | CPT/HCPCS: Q9967 ==

== ENCOUNTER → 2018-03-01 | Outpatient (CLI) | payer OTHER ==
[2018-03-01 09:24] LABS: BASO # 0.1 10^3/uL (0.0-0.2); BASO % 0.9 % (0.0-1.0); EOS # 0.2 10^3/uL (0.0-0.50); EOS % 3.8 % (0.0-3.0); HEMATOCRIT 40.1 % (36.0-47.0); HEMOGLOBIN 13.8 g/dl (12.0-15.5); IMMATURE GRANULOCYTE % 0.8 % (0-3.0); LYMPH # 0.9 10^3/uL (1.5-4.5); LYMPH % 16.3 % (24.0-44.0); MEAN CORPUSCULAR HEMOGLOBIN 33.3 pg (27.0-33.0); MEAN CORPUSCULAR HGB CONC 34.4 g/dl (32.0-36.5); MEAN CORPUSCULAR VOLUME 96.9 fl (80.0-96.0); MONO # 0.3 10^3/uL (0.0-0.8); MONO % 6.4 % (0.0-5.0); NEUTROPHILS # 3.8 10^3/uL (1.8-7.7); NEUTROPHILS % 71.8 % (36.0-66.0); PLATELET COUNT, AUTOMATED 270 10^3/uL (150-450); RED BLOOD COUNT 4.14 10^6/uL (4.00-5.40); RED CELL DISTRIBUTION WIDTH 12.8 % (11.5-14.5); WHITE BLOOD COUNT 5.3 10^3/uL (4.0-10.0)
[2018-03-01 10:06] LABS: ALBUMIN 3.7 GM/DL (3.2-5.2); ALBUMIN/GLOBULIN RATIO 1.32 (1.00-1.93); ALKALINE PHOSPHATASE 115 U/L (45-117); ALT/SGPT 15 U/L (12-78); ANION GAP 5 MEQ/L (8-16); AST/SGOT 12 U/L (7-37); BILIRUBIN,TOTAL 0.3 MG/DL (0.2-1.0); BLOOD UREA NITROGEN 11 MG/DL (7-18); CALCIUM LEVEL 8.3 MG/DL (8.5-10.1); CARBON DIOXIDE LEVEL 32 MEQ/L (21-32); CHLORIDE LEVEL 105 MEQ/L (98-107); CREATININE FOR GFR 0.96 MG/DL (0.55-1.30); GLOMERULAR FILTRATION RATE > 60.0 (>58); GLUCOSE, FASTING 97 MG/DL (70-100); POTASSIUM SERUM 3.9 MEQ/L (3.5-5.1); SODIUM LEVEL 142 MEQ/L (136-145); TOTAL PROTEIN 6.5 GM/DL (6.4-8.2)
== END ==
LOC: M LAB 08:47
DX: C53.9 Malignant neoplasm of cervix uteri, unspecified (principal)
CPT/HCPCS: 80053

== ENCOUNTER 2021-09-20 11:04 | Emergency (ER) | payer OTHER ==
[~2021-09-20] VITALS: Ht 172.7 cm; Wt 58.0 kg
[~2021-09-20 11:04] MED LIST changes: +ADVI200C5 PO; +ALBU17IN INH; +ALBUPOW9 INH; +ALBUTEROL NEB INH; +ALBUTEROL SULFATE INH; +AZIT250T PO; +AZIT500T5 PO; +CIPR500T3 PO; +FLU; +IBUP-1022 PO; -ISOVUE-370 76% 100ML VIAL (Q9967) As Ordered; +LEVA1TAB2 PO; +LEVO750T PO; +NICO14DI20 EXT; +NICO21DI26 EXT; +NICO21PAT TD; +PAXI20TA3 PO; +PAXI40TA10 PO; +PAXI40TA2 PO; +PERC10TA26 PO; +PERC5TAB12 PO; +PERCOCET PO; +PRED10TA2 PO; +PRED1TAB69 PO; +PRED20TA PO; +PROAAER IN; +PROZ10CA7 PO; +RISP0.5T23 PO; +RISP4TAB33 PO; +ROBITUSSIN COLD; +SERO1TAB3 PO; +SILV-4 TOP; +TRAZ50TA2 PO; +WELL150T PO; +XANA0.25 PO; +ZITHTAB PO
[2021-09-20] MEDS ORDERED: LYRI75CA PO ×2 (11:19→15:08)
[2021-09-20] MEDS ORDERED: ATIV1TAB7 PO ×2 (11:22→15:08)
[2021-09-20 13:58] LABS: BASO % 0.4 % (0.0-1.0); EOS # 0.2 10^3/uL (0.0-0.5); HEMATOCRIT 39.7 % (36.0-47.0); HEMOGLOBIN 13.6 g/dl (12.0-15.5); LYMPH # 0.8 10^3/uL (1.5-5.0); MEAN CORPUSCULAR HEMOGLOBIN 35.9 pg (27.0-33.0); MEAN CORPUSCULAR HGB CONC 34.3 g/dl (32.0-36.5); MEAN CORPUSCULAR VOLUME 104.7 fl (80.0-96.0); MONO # 0.6 10^3/uL (0.0-0.8); MONO % 7.2 % (2.0-8.0); NEUTROPHILS # 6.1 10^3/uL (1.5-8.5); NEUTROPHILS % 79.5 % (36.0-66.0); PLATELET COUNT, AUTOMATED 255 10^3/uL (150-450); RED BLOOD COUNT 3.79 10^6/uL (4.00-5.40); WHITE BLOOD COUNT 7.7 10^3/uL (4.0-10.0)
[2021-09-20 14:25] LABS: BLOOD UREA NITROGEN 18 MG/DL (7-18); CARBON DIOXIDE LEVEL 27 MEQ/L (21-32); CHLORIDE LEVEL 107 MEQ/L (98-107); CREATININE FOR GFR 0.96 MG/DL (0.55-1.30); GLOMERULAR FILTRATION RATE > 60.0 (>51); GLUCOSE, FASTING 96 MG/DL (70-100); POTASSIUM SERUM 3.9 MEQ/L (3.5-5.1); SODIUM LEVEL 142 MEQ/L (136-145)
[2021-09-20] MEDS ORDERED: CIPROFLOXACIN 500MG TABLET PO ONE (14:30)
[2021-09-20] MEDS ORDERED: CIPR-249 PO (15:08)
[2021-09-20 15:34] VITALS: BP 115/70
== END 2021-09-20 15:44 | disposition home or self-care (01) ==
LOC: M ED 11:04
DX: N39.0 Urinary tract infection, site not specified (principal); G89.29 Other chronic pain; C55 Malignant neoplasm of uterus, part unspecified; Z93.6 Other artificial openings of urinary tract status; F17.200 Nicotine dependence, unspecified, uncomplicated; Z79.899 Other long term (current) drug therapy

== ENCOUNTER → 2021-10-18 | Outpatient (POV) | payer MEDICAID, OTHER ==
[~2021-10-18] VITALS: Ht 172.7 cm; Wt 56.3 kg
[~2021-10-18] MED LIST changes: +ALBU8.5H; +AMOX875T2; +ATIV1TAB7 PO; +CIPR-249 PO; +COLA100C5 PO; +HYDR-3713 PO; +HYDR10CA2 PO; +LYRI75CA PO; +METH4TAB8; +MORP15TA2; +ONDA8TAB8 PO; +PROC10TA5 PO
[2021-10-18 10:45] VITALS: BP 120/78
== END ==
LOC: M IRPOV 10:37
PROVIDERS: ATTEND Radiology Diagnostic Radiology
DX: N13.30 Unspecified hydronephrosis (principal); C53.9 Malignant neoplasm of cervix uteri, unspecified; F17.210 Nicotine dependence, cigarettes, uncomplicated; Z92.21 Personal history of antineoplastic chemotherapy; Z92.3 Personal history of irradiation; Z96.0 Presence of urogenital implants

== ENCOUNTER 2021-10-22 15:43 | Emergency (ER) | payer OTHER ==
[~2021-10-22] VITALS: Ht 172.7 cm; Wt 56.4 kg
[~2021-10-22 15:43] MED LIST changes: -ALBU8.5H; -AMOX875T2; -METH4TAB8; -MORP15TA2; -ONDA8TAB8 PO; -PROC10TA5 PO
[2021-10-22] MEDS ORDERED: METH4TAB8 (16:09)
[2021-10-22] MEDS ORDERED: AMOX875T2 (16:09)
[2021-10-22] MEDS ORDERED: ALBU8.5H (16:09)
[2021-10-22] MEDS ORDERED: MORP15TA2 (16:09)
[2021-10-22 18:24] LABS: BASO % 0.4 % (0.0-1.0); EOS # 0.2 10^3/uL (0.0-0.5); EOS % 2.3 % (0.0-3.0); HEMATOCRIT 39.4 % (36.0-47.0); HEMOGLOBIN 13.2 g/dl (12.0-15.5); LYMPH # 1.1 10^3/uL (1.5-5.0); LYMPH % 11.6 % (24.0-44.0); MEAN CORPUSCULAR HEMOGLOBIN 34.7 pg (27.0-33.0); MEAN CORPUSCULAR HGB CONC 33.5 g/dl (32.0-36.5); MEAN CORPUSCULAR VOLUME 103.7 fl (80.0-96.0); MONO # 0.6 10^3/uL (0.0-0.8); MONO % 6.5 % (2.0-8.0); NEUTROPHILS # 7.6 10^3/uL (1.5-8.5); PLATELET COUNT, AUTOMATED 301 10^3/uL (150-450); WHITE BLOOD COUNT 9.7 10^3/uL (4.0-10.0)
[2021-10-22 19:37] VITALS: BP 136/84
== END 2021-10-22 19:41 | disposition home or self-care (01) ==
LOC: M ED 15:43
DX: T83.022A Displacement of nephrostomy catheter, initial encounter (principal); J45.909 Unspecified asthma, uncomplicated; J44.9 Chronic obstructive pulmonary disease, unspecified; F19.10 Other psychoactive substance abuse, uncomplicated; F12.10 Cannabis abuse, uncomplicated; F17.200 Nicotine dependence, unspecified, uncomplicated; F41.9 Anxiety disorder, unspecified; F32.9 Major depressive disorder, single episode, unspecified; Z79.899 Other long term (current) drug therapy

== ENCOUNTER → 2021-10-24 | Outpatient (CLI) | payer OTHER ==
[~2021-10-24] MED LIST changes: +ALBU8.5H; +AMOX875T2; +HYDROmorphone HCL 2MG/ML 1ML VIAL As Ordered ONE; +ISOVUE-300 61% 50ML VIAL As Ordered ONE; +LIDOCAINE 1% MDV 20ML VIAL As Ordered ONE; +METH4TAB8; +MIDAZOLAM INJ 2MG/2ML VIAL (J2250 PER 1MG) As Ordered ONE; +MORP15TA2; +ONDA8TAB8 PO; +PROC10TA5 PO; +ceFAZolin 1GM VIAL (J0690 PER 500MG) As Ordered ONE; +diphenhydrAMINE 50MG/ML VIAL (J1200) As Ordered ONE; +fentaNYL 100 MCG/2 ML INJECTION As Ordered ONE
[2021-10-24 12:04] VITALS: BP 115/78
== END ==
LOC: M IRPRO 10:59
PROVIDERS: ATTEND Radiology Diagnostic Radiology
DX: N13.30 Unspecified hydronephrosis (principal); N13.9 Obstructive and reflux uropathy, unspecified; Z45.89 Encounter for adjustment and management of other implanted devices; Z96.0 Presence of urogenital implants
CPT/HCPCS: 50432; C1769; C1887; J0690; J1170; Q9967

== ENCOUNTER 2021-11-11 08:35 | Emergency (ER) | payer OTHER ==
[~2021-11-11] VITALS: Ht 172.7 cm; Wt 57.9 kg
[~2021-11-11 08:35] MED LIST changes: -ALBU8.5H; +ALBU8.5H INH; -HYDROmorphone HCL 2MG/ML 1ML VIAL As Ordered ONE; -ISOVUE-300 61% 50ML VIAL As Ordered ONE; -LIDOCAINE 1% MDV 20ML VIAL As Ordered ONE; -MIDAZOLAM INJ 2MG/2ML VIAL (J2250 PER 1MG) As Ordered ONE; -MORP15TA2; +MORP15TA2 PO; -ceFAZolin 1GM VIAL (J0690 PER 500MG) As Ordered ONE; -diphenhydrAMINE 50MG/ML VIAL (J1200) As Ordered ONE; -fentaNYL 100 MCG/2 ML INJECTION As Ordered ONE
[2021-11-11] MEDS ORDERED: SENN-83 (08:44)
[2021-11-11] MEDS ORDERED: PREG100C (08:44)
[2021-11-11] MEDS ORDERED: NS 1,000 ML IV SCH (09:00)
[2021-11-11 10:45] LABS: RSV AMPLIFICATION NEGATIVE (NEGATIVE)
[2021-11-11 11:03] LABS: ALBUMIN 2.4 GM/DL (3.2-5.2); ALT/SGPT 24 U/L (12-78); BILIRUBIN,DIRECT < 0.1 MG/DL (0.0-0.2); BILIRUBIN,TOTAL 1.4 MG/DL (0.2-1.0); BLOOD UREA NITROGEN 74 MG/DL (7-18); CALCIUM LEVEL 6.8 MG/DL (8.5-10.1); CARBON DIOXIDE LEVEL 17 MEQ/L (21-32); CHLORIDE LEVEL 93 MEQ/L (98-107); GLOMERULAR FILTRATION RATE 3.2 (>51); GLUCOSE, FASTING 86 MG/DL (70-100); LIPASE 32 U/L (73-393); POTASSIUM SERUM 3.7 MEQ/L (3.5-5.1); SODIUM LEVEL 127 MEQ/L (136-145)
[2021-11-11 11:10] LABS: BASO % 0.4 % (0.0-1.0); EOS # 0.1 10^3/uL (0.0-0.5); EOS % 1.2 % (0.0-3.0); HEMATOCRIT 31.5 % (36.0-47.0); HEMOGLOBIN 11.1 g/dl (12.0-15.5); LYMPH # 0.2 10^3/uL (1.5-5.0); LYMPH % 3.6 % (24.0-44.0); MEAN CORPUSCULAR HEMOGLOBIN 34.4 pg (27.0-33.0); MEAN CORPUSCULAR HGB CONC 35.2 g/dl (32.0-36.5); MEAN CORPUSCULAR VOLUME 97.5 fl (80.0-96.0); MONO # 0.2 10^3/uL (0.0-0.8); MONO % 4.8 % (2.0-8.0); NEUTROPHILS # 4.3 10^3/uL (1.5-8.5); NEUTROPHILS % 85.4 % (36.0-66.0); PLATELET COUNT, AUTOMATED 203 10^3/uL (150-450); RED BLOOD COUNT 3.23 10^6/uL (4.00-5.40)
[2021-11-11 12:12] LABS: MAGNESIUM LEVEL 1.7 MG/DL (1.8-2.4); URIC ACID 10.2 MG/DL (2.6-6.0)
[2021-11-11 12:20] LABS: ERYTHROCYTE SEDIMENTATION RATE 35 mm/hr (0-30)
[2021-11-11 14:45] VITALS: BP 139/80
[2021-11-11] MEDS ORDERED: cefTRIAXone SOD 2 GM in D5W MINI-BAG PLUS 50 ML IV ONE (14:55)
[2021-11-11] MEDS ORDERED: ACETAMINOPHEN 500 MG TAB PO ONE (14:55)
== END 2021-11-11 15:07 | disposition short-term general hospital (02) ==
LOC: M ED 08:35
DX: N17.9 Acute kidney failure, unspecified (principal); N13.30 Unspecified hydronephrosis; C79.82 Secondary malignant neoplasm of genital organs; Z93.6 Other artificial openings of urinary tract status; Z92.21 Personal history of antineoplastic chemotherapy; Z92.3 Personal history of irradiation; J45.909 Unspecified asthma, uncomplicated; J44.9 Chronic obstructive pulmonary disease, unspecified; F17.200 Nicotine dependence, unspecified, uncomplicated; F19.10 Other psychoactive substance abuse, uncomplicated; Z79.899 Other long term (current) drug therapy
CPT/HCPCS: 36415; 74176; 80048; 80076; 82330; 82550; 83690; 83735; 83930; 84550; 85025; 85652; 87631; 96361; 96374; 99285; J0696

== ENCOUNTER 2021-11-22 10:56 | Inpatient (IN) | payer OTHER ==
[~2021-11-22] VITALS: Ht 172.7 cm; Wt 57.3 kg
[~2021-11-22 10:56] MED LIST changes: +PREG100C; +SENN-83 PO
[2021-11-22] MEDS ORDERED: POTASSIUM CHLORIDE 10MEQ SR TABLET PO ONE ×2 (13:05→15:00)
[2021-11-22 14:03] LABS: BASO % 0.4 % (0.0-1.0); EOS # 0.3 10^3/uL (0.0-0.5); EOS % 2.9 % (0.0-3.0); HEMATOCRIT 31.5 % (36.0-47.0); HEMOGLOBIN 11.2 g/dl (12.0-15.5); LYMPH % 9.5 % (24.0-44.0); MEAN CORPUSCULAR HEMOGLOBIN 33.8 pg (27.0-33.0); MEAN CORPUSCULAR HGB CONC 35.6 g/dl (32.0-36.5); MEAN CORPUSCULAR VOLUME 95.2 fl (80.0-96.0); MONO # 0.9 10^3/uL (0.0-0.8); MONO % 8.8 % (2.0-8.0); NEUTROPHILS # 7.7 10^3/uL (1.5-8.5); NEUTROPHILS % 76.8 % (36.0-66.0); PLATELET COUNT, AUTOMATED 273 10^3/uL (150-450); RED BLOOD COUNT 3.31 10^6/uL (4.00-5.40); WHITE BLOOD COUNT 10.1 10^3/uL (4.0-10.0)
[2021-11-22 14:35] LABS: ALBUMIN 2.6 GM/DL (3.2-5.2); BILIRUBIN,TOTAL 0.7 MG/DL (0.2-1.0); CALCIUM LEVEL 7.5 MG/DL (8.5-10.1); CREATININE FOR GFR 3.17 MG/DL (0.55-1.30); GLOMERULAR FILTRATION RATE 16.4 (>51); MAGNESIUM LEVEL 1.5 MG/DL (1.8-2.4); POTASSIUM SERUM 2.3 MEQ/L (3.5-5.1); TOTAL PROTEIN 6.3 GM/DL (6.4-8.2)
[2021-11-22] MEDS ORDERED: MOM 30ML SUSPENSION UDC PO PRN (14:50)
[2021-11-22] MEDS ORDERED: MAALOX 30 ML SUSP *UDC PO PRN (14:50)
[2021-11-22] MEDS ORDERED: ACETAMINOPHEN TAB 650MG DOSE (2X325MG) PO PRN (14:50)
[2021-11-22] MEDS ORDERED: MAG SULF 1GM/100ML (MAG RUN) 1 GM in IV 1 EA IV SCH (15:00)
[2021-11-22] MEDS ORDERED: PREG75CA2 PO (15:07)
[2021-11-22] MEDS ORDERED: HOME MED LIST COMPLETE! XX SCH (15:10)
[2021-11-22 19:21] LABS: CALCIUM LEVEL 7.2 MG/DL (8.5-10.1); CREATININE FOR GFR 2.75 MG/DL (0.55-1.30); GLOMERULAR FILTRATION RATE 19.4 (>51); POTASSIUM SERUM 2.4 MEQ/L (3.5-5.1)
[2021-11-22] MEDS: NS 1,000 ML IV SCH (19:21)
[2021-11-22] MEDS ORDERED: ONDANSETRON 4MG/2ML VIAL IV PRN (19:25)
[2021-11-22 20:07] VITALS: BP 109/67
[2021-11-22 20:36] LABS: CREATININE FOR GFR 2.5 MG/DL (0.55-1.30); GLOMERULAR FILTRATION RATE 21.6 (>51); POTASSIUM SERUM 2.3 MEQ/L (3.5-5.1)
[2021-11-22] MEDS: MAG SULF 1GM/100ML (MAG RUN) 1 GM in IV 1 EA IV SCH ×2 (21:10→22:25)
[2021-11-22] MEDS: HEPARIN SOD (PORCINE) 5000UNITS/ML 1ML VIAL/SYRINGE SC SCH (23:21)
[2021-11-22] MEDS: DOCUSATE SODIUM 100MG CAPSULE PO SCH (23:21)
[2021-11-23] MEDS: cefTRIAXone SOD 1 GM in D5W MINI-BAG PLUS 50 ML IV SCH ×2 (00:01→14:51)
[2021-11-23] MEDS: NS 1,000 ML IV SCH (00:18)
[2021-11-23 04:44] VITALS: BP 120/68
[2021-11-23] MEDS: HEPARIN SOD (PORCINE) 5000UNITS/ML 1ML VIAL/SYRINGE SC SCH ×3 (05:35→20:39)
[2021-11-23 05:59] LABS: BASO # 0.1 10^3/uL (0.0-0.2); BASO % 0.8 % (0.0-1.0); EOS # 0.4 10^3/uL (0.0-0.5); EOS % 6.2 % (0.0-3.0); HEMATOCRIT 28.8 % (36.0-47.0); HEMOGLOBIN 9.9 g/dl (12.0-15.5); LYMPH # 0.8 10^3/uL (1.5-5.0); LYMPH % 11.6 % (24.0-44.0); MEAN CORPUSCULAR HEMOGLOBIN 33.1 pg (27.0-33.0); MEAN CORPUSCULAR HGB CONC 34.4 g/dl (32.0-36.5); MEAN CORPUSCULAR VOLUME 96.3 fl (80.0-96.0); MONO # 0.6 10^3/uL (0.0-0.8); NEUTROPHILS # 4.8 10^3/uL (1.5-8.5); NEUTROPHILS % 71.2 % (36.0-66.0); PLATELET COUNT, AUTOMATED 274 10^3/uL (150-450); RED BLOOD COUNT 2.99 10^6/uL (4.00-5.40); WHITE BLOOD COUNT 6.7 10^3/uL (4.0-10.0)
[2021-11-23 06:21] LABS: CALCIUM LEVEL 7.4 MG/DL (8.5-10.1); CREATININE FOR GFR 2.29 MG/DL (0.55-1.30); GLOMERULAR FILTRATION RATE 23.9 (>51); MAGNESIUM LEVEL 2.2 MG/DL (1.8-2.4); POTASSIUM SERUM 2.8 MEQ/L (3.5-5.1)
[2021-11-23 06:55] LABS: CREATININE,RANDOM URINE 55.9 MG/DL
[2021-11-23] MEDS ORDERED: KCL 10MEQ/100ML SWI (KRUN) SINGLE DOSE IV SCH ×2 (07:00)
[2021-11-23] MEDS ORDERED: POTASSIUM CHLORIDE 10MEQ SR TABLET PO ONE ×5 (07:00→19:00)
[2021-11-23] MEDS ORDERED: POTASSIUM CHLORIDE 10% LIQ 20 MEQ/15 ML UDC PO ONE (08:10)
[2021-11-23] MEDS ORDERED: NICOTINE 7 MG/24 HR TRANSDERMAL TD SCH (09:00)
[2021-11-23] MEDS: PARoxetine 20MG TABLET PO SCH (09:00)
[2021-11-23] MEDS: DOCUSATE SODIUM 100MG CAPSULE PO SCH ×2 (09:14→20:37)
[2021-11-23] MEDS ORDERED: ALBUTEROL SULFATE 2.5 MG/0.5 ML INH NEB SOLN INH PRN (09:45)
[2021-11-23] MEDS ORDERED: PROCHLORPERAZINE 5 MG TAB (S0183) PO PRN (09:45)
[2021-11-23] MEDS: LORazepam 1 MG TAB PO PRN ×2 (10:07→20:37)
[2021-11-23] MEDS: PREGABALIN 75 MG CAP(LYRICA) PO SCH ×3 (10:07→20:37)
[2021-11-23] MEDS ORDERED: PILL CUTTER 1 EACH XX PRN (10:40)
[2021-11-23] MEDS: MORPHINE 30 MG TAB **MSIR PO PRN ×2 (11:21→20:38)
[2021-11-23] MEDS: KCL 20MEQ IN 0.45NS 1000ML 1,000 ML IV SCH ×2 (11:27→20:37)
[2021-11-23 12:20] LABS: MAGNESIUM LEVEL 2.1 MG/DL (1.8-2.4)
[2021-11-23 14:00] VITALS: BP 118/68
[2021-11-23] MEDS ORDERED: SENNA 8.6 MG TAB (SENOKOT) PO SCH (21:00)
[2021-11-23 22:00] VITALS: BP 112/69
[2021-11-24] MEDS: MORPHINE 30 MG TAB **MSIR PO PRN (02:52)
[2021-11-24] MEDS: HEPARIN SOD (PORCINE) 5000UNITS/ML 1ML VIAL/SYRINGE SC SCH (05:35)
[2021-11-24] MEDS: KCL 20MEQ IN 0.45NS 1000ML 1,000 ML IV SCH (05:39)
[2021-11-24 05:59] LABS: BASO # 0.1 10^3/uL (0.0-0.2); BASO % 1.3 % (0.0-1.0); EOS # 0.5 10^3/uL (0.0-0.5); EOS % 8.2 % (0.0-3.0); HEMATOCRIT 31.8 % (36.0-47.0); HEMOGLOBIN 10.7 g/dl (12.0-15.5); LYMPH # 0.8 10^3/uL (1.5-5.0); LYMPH % 14.7 % (24.0-44.0); MEAN CORPUSCULAR HEMOGLOBIN 33.4 pg (27.0-33.0); MEAN CORPUSCULAR HGB CONC 33.6 g/dl (32.0-36.5); MEAN CORPUSCULAR VOLUME 99.4 fl (80.0-96.0); MONO # 0.5 10^3/uL (0.0-0.8); MONO % 8.2 % (2.0-8.0); NEUTROPHILS # 3.7 10^3/uL (1.5-8.5); NEUTROPHILS % 66.5 % (36.0-66.0); PLATELET COUNT, AUTOMATED 275 10^3/uL (150-450); WHITE BLOOD COUNT 5.6 10^3/uL (4.0-10.0)
[2021-11-24 06:00] VITALS: BP 109/73
[2021-11-24 06:38] LABS: CALCIUM LEVEL 7.8 MG/DL (8.5-10.1); CREATININE FOR GFR 2.03 MG/DL (0.55-1.30); GLOMERULAR FILTRATION RATE 27.5 (>51); MAGNESIUM LEVEL 1.8 MG/DL (1.8-2.4); PHOSPHORUS LEVEL 3.2 MG/DL (2.5-4.9); POTASSIUM SERUM 4.5 MEQ/L (3.5-5.1)
[2021-11-24 08:00] VITALS: BP 118/64
[2021-11-24 08:55] LABS: PTH INTACT 99.1 PG/ML (18.5-88.0)
[2021-11-24] MEDS ORDERED: NICOTINE 14 MG/24 HR TRANSDERMAL TD SCH (09:00)
[2021-11-24] MEDS ORDERED: CEFDINIR 300 MG CAP (OMNICEF) PO SCH (09:00)
[2021-11-24] MEDS: LORazepam 1 MG TAB PO PRN (09:04)
[2021-11-24] MEDS: DOCUSATE SODIUM 100MG CAPSULE PO SCH (09:32)
[2021-11-24] MEDS: PARoxetine 20MG TABLET PO SCH (09:32)
[2021-11-24] MEDS: PREGABALIN 75 MG CAP(LYRICA) PO SCH (09:33)
[2021-11-24 12:00] VITALS: BP 120/68
[2021-11-24] MEDS ORDERED: CEFD300CAP PO (12:40)
== END 2021-11-24 14:35 | disposition home health service (06) | DRG 469 ==
LOC: M MSPAV 12:47
PROVIDERS: ADMIT Internal Medicine; ATTEND Internal Medicine
DX: N17.9 Acute kidney failure, unspecified (principal); E83.42 Hypomagnesemia; C53.9 Malignant neoplasm of cervix uteri, unspecified; J44.9 Chronic obstructive pulmonary disease, unspecified; D64.9 Anemia, unspecified; D72.829 Elevated white blood cell count, unspecified; F31.9 Bipolar disorder, unspecified; F17.210 Nicotine dependence, cigarettes, uncomplicated; K58.9 Irritable bowel syndrome, unspecified; Z92.3 Personal history of irradiation; Z92.21 Personal history of antineoplastic chemotherapy; F12.90 Cannabis use, unspecified, uncomplicated; E87.6 Hypokalemia; Z79.899 Other long term (current) drug therapy; Z20.822 Contact with and (suspected) exposure to COVID-19; Z96.0 Presence of urogenital implants; N13.30 Unspecified hydronephrosis; N18.30 Chronic kidney disease, stage 3 unspecified

== ENCOUNTER → 2021-12-14 | Outpatient (CLI) | payer OTHER ==
[~2021-12-14] MED LIST changes: +CEFD300CAP PO; +MUCI600T31 PO; +PREG100CA PO; +PREG75CA2 PO
== END ==
LOC: M LABSMTC 09:51
PROVIDERS: ATTEND Anesthesiology
DX: Z01.812 Encounter for preprocedural laboratory examination (principal); Z20.822 Contact with and (suspected) exposure to COVID-19

== ENCOUNTER 2022-02-01 23:09 | Inpatient (IN) | payer MEDICAID, OTHER ==
[~2022-02-01] VITALS: Ht 172.7 cm; Wt 51.1 kg
[2022-02-01] MEDS ORDERED: ALBUTEROL 90 MCG/ACT 8GM HFA INHALER INH ONE (23:40)
[2022-02-02 00:25] LABS: BASO % 0.5 % (0.0-1.0); EOS # 0.1 10^3/uL (0.0-0.5); EOS % 0.8 % (0.0-3.0); HEMATOCRIT 35.5 % (36.0-47.0); HEMOGLOBIN 11.8 g/dl (12.0-15.5); LYMPH # 0.5 10^3/uL (1.5-5.0); LYMPH % 6.8 % (24.0-44.0); MEAN CORPUSCULAR HEMOGLOBIN 32.5 pg (27.0-33.0); MEAN CORPUSCULAR HGB CONC 33.2 g/dl (32.0-36.5); MEAN CORPUSCULAR VOLUME 97.8 fl (80.0-96.0); MONO # 0.6 10^3/uL (0.0-0.8); MONO % 8.8 % (2.0-8.0); NEUTROPHILS % 82.1 % (36.0-66.0); PLATELET COUNT, AUTOMATED 229 10^3/uL (150-450); RED BLOOD COUNT 3.63 10^6/uL (4.00-5.40); WHITE BLOOD COUNT 7.3 10^3/uL (4.0-10.0)
[2022-02-02] MEDS ORDERED: ALBUTEROL SULFATE 2.5 MG/0.5 ML INH NEB SOLN NEB ONE (00:30)
[2022-02-02] MEDS: SENNA 8.6 MG TAB (SENOKOT) PO SCH (00:33)
[2022-02-02 00:53] LABS: BILIRUBIN,DIRECT 0.2 MG/DL (0.0-0.2); BILIRUBIN,TOTAL 0.8 MG/DL (0.2-1.0); CALCIUM LEVEL 8.3 MG/DL (8.5-10.1); CREATININE FOR GFR 4.98 MG/DL (0.55-1.30); GLOMERULAR FILTRATION RATE 9.7 (>51); POTASSIUM SERUM 3.6 MEQ/L (3.5-5.1); TOTAL PROTEIN 5.9 GM/DL (6.4-8.2)
[2022-02-02 01:23] LABS: RSV AMPLIFICATION NEGATIVE (NEGATIVE)
[2022-02-02] MEDS ORDERED: ACETAMINOPHEN TAB 650MG DOSE (2X325MG) PO PRN (02:50)
[2022-02-02] MEDS ORDERED: IPRATROPIUM 0.5MG/ALBUTEROL 2.5MG INH SOL UD 3ML (DUONEB) NEB PRN (02:50)
[2022-02-02] MEDS ORDERED: HYDROMORPHONE HCL 0.5 MG/ 0.5 ML SYRINGE (J1170 PER 1) IV PRN ×3 (03:20→03:55)
[2022-02-02] MEDS ORDERED: HYDROMORPHONE HCL 0.5 MG/ 0.5 ML SYRINGE (J1170 PER 1) IV ONE (03:30)
[2022-02-02] MEDS ORDERED: BENZONATATE 100MG CAPSULE PO PRN (03:30)
[2022-02-02] MEDS ORDERED: NICOTINE 21MG/24HR 1 EA TRANSDERMAL TD ONE (03:45)
[2022-02-02] MEDS ORDERED: NS 1,000 ML IV SCH ×2 (04:00→06:00)
[2022-02-02] MEDS ORDERED: cefTRIAXone SOD 1 GM in D5W MINI-BAG PLUS 50 ML IV SCH (04:00)
[2022-02-02] MEDS ORDERED: DOXYCYCLINE HYCLATE 100 MG in D5W MINI-BAG PLUS 100 ML IV SCH (05:00)
[2022-02-02] MEDS ORDERED: ATIV1TAB7 PO (05:36)
[2022-02-02] MEDS ORDERED: PREG50CA PO (05:36)
[2022-02-02] MEDS ORDERED: ONDA-195 PO (05:36)
[2022-02-02] MEDS ORDERED: HOME MED LIST COMPLETE! XX SCH (05:40)
[2022-02-02] MEDS: IPRATROPIUM 0.5MG/ALBUTEROL 2.5MG INH SOL UD 3ML (DUONEB) NEB SCH ×5 (05:58→23:16)
[2022-02-02] MEDS: HEPARIN SOD (PORCINE) 5000UNITS/ML 1ML VIAL/SYRINGE SQ SCH ×3 (06:00→20:48)
[2022-02-02 07:29] LABS: BASO % 0.7 % (0.0-1.0); EOS # 0.1 10^3/uL (0.0-0.5); EOS % 1.2 % (0.0-3.0); HEMATOCRIT 31.1 % (36.0-47.0); HEMOGLOBIN 10.5 g/dl (12.0-15.5); LYMPH # 0.7 10^3/uL (1.5-5.0); LYMPH % 11.1 % (24.0-44.0); MEAN CORPUSCULAR HGB CONC 33.8 g/dl (32.0-36.5); MEAN CORPUSCULAR VOLUME 97.8 fl (80.0-96.0); MONO # 0.6 10^3/uL (0.0-0.8); MONO % 10.1 % (2.0-8.0); NEUTROPHILS # 4.5 10^3/uL (1.5-8.5); NEUTROPHILS % 75.4 % (36.0-66.0); PLATELET COUNT, AUTOMATED 207 10^3/uL (150-450); RED BLOOD COUNT 3.18 10^6/uL (4.00-5.40); WHITE BLOOD COUNT 5.9 10^3/uL (4.0-10.0)
[2022-02-02 07:39] LABS: INR 1.15; PROTHROMBIN TIME 15.1 SECONDS (12.7-14.5)
[2022-02-02 07:40] LABS: PARTIAL THROMBOPLASTIN TIME 40.5 SECONDS (25.9-37.0)
[2022-02-02 07:50] LABS: CALCIUM LEVEL 8.1 MG/DL (8.5-10.1); CREATININE FOR GFR 4.93 MG/DL (0.55-1.30); GLOMERULAR FILTRATION RATE 9.8 (>51); POTASSIUM SERUM 3.6 MEQ/L (3.5-5.1)
[2022-02-02] MEDS ORDERED: LevoFLOXacin IV 500 MG in IV 1 EA IV ONE (08:25)
[2022-02-02] MEDS ORDERED: LevoFLOXacin IV 250 MG in IV 1 EA IV SCH (08:25)
[2022-02-02] MEDS ORDERED: LevoFLOXacin IV 750 MG in IV 1 EA IV ONE (09:00)
[2022-02-02 13:06] VITALS: BP 112/72
[2022-02-02] MEDS: MORPHINE 30 MG TAB **MSIR PO PRN ×2 (14:41→20:50)
[2022-02-02] MEDS: ALBUTEROL 90 MCG/ACT 8GM HFA INHALER INH PRN ×2 (16:39→23:16)
[2022-02-02] MEDS: guaiFENesin ER 600 MG TAB PO PRN (18:05)
[2022-02-02 19:33] LABS: CALCIUM LEVEL 7.6 MG/DL (8.5-10.1); CREATININE FOR GFR 5.15 MG/DL (0.55-1.30); GLOMERULAR FILTRATION RATE 9.4 (>51); POTASSIUM SERUM 3.6 MEQ/L (3.5-5.1)
[2022-02-02] MEDS: PREGABALIN 50 MG CAP (LYRICA) PO SCH (20:48)
[2022-02-02] MEDS: LORazepam 1 MG TAB PO PRN (21:57)
[2022-02-02 22:00] VITALS: BP 119/86
[2022-02-03 04:11] VITALS: O2SAT 90
[2022-02-03] MEDS: HEPARIN SOD (PORCINE) 5000UNITS/ML 1ML VIAL/SYRINGE SQ SCH ×3 (05:02→22:14)
[2022-02-03] MEDS: MORPHINE 30 MG TAB **MSIR PO PRN ×3 (05:03→20:29)
[2022-02-03] MEDS: NICOTINE 21MG/24HR 1 EA TRANSDERMAL TD SCH (05:18)
[2022-02-03 06:00] VITALS: BP 123/82
[2022-02-03 06:34] LABS: BASO % 0.7 % (0.0-1.0); EOS # 0.1 10^3/uL (0.0-0.5); EOS % 1.5 % (0.0-3.0); HEMATOCRIT 28.2 % (36.0-47.0); HEMOGLOBIN 9.5 g/dl (12.0-15.5); LYMPH # 0.6 10^3/uL (1.5-5.0); MEAN CORPUSCULAR HEMOGLOBIN 32.5 pg (27.0-33.0); MEAN CORPUSCULAR HGB CONC 33.7 g/dl (32.0-36.5); MEAN CORPUSCULAR VOLUME 96.6 fl (80.0-96.0); MONO # 0.5 10^3/uL (0.0-0.8); MONO % 8.6 % (2.0-8.0); NEUTROPHILS # 4.5 10^3/uL (1.5-8.5); PLATELET COUNT, AUTOMATED 206 10^3/uL (150-450); RED BLOOD COUNT 2.92 10^6/uL (4.00-5.40); WHITE BLOOD COUNT 5.8 10^3/uL (4.0-10.0)
[2022-02-03 06:58] LABS: CREATININE FOR GFR 4.64 MG/DL (0.55-1.30); GLOMERULAR FILTRATION RATE 10.5 (>51); POTASSIUM SERUM 3.7 MEQ/L (3.5-5.1)
[2022-02-03] MEDS: IPRATROPIUM 0.5MG/ALBUTEROL 2.5MG INH SOL UD 3ML (DUONEB) NEB SCH ×3 (07:15→19:17)
[2022-02-03] MEDS: SYMBICORT 160/4.5MCG INHALER 6GM INH SCH ×2 (07:16→19:17)
[2022-02-03] MEDS: PREGABALIN 50 MG CAP (LYRICA) PO SCH ×2 (09:00→20:30)
[2022-02-03] MEDS ORDERED: predniSONE 20 MG TAB PO SCH (09:00)
[2022-02-03] MEDS: SENNA 8.6 MG TAB (SENOKOT) PO SCH ×3 (09:00→20:50)
[2022-02-03] MEDS: guaiFENesin ER 600 MG TAB PO PRN (09:04)
[2022-02-03] MEDS: NS 1,000 ML IV SCH ×2 (09:14→20:28)
[2022-02-03 10:05] VITALS: BP 116/68
[2022-02-03] MEDS: LORazepam 1 MG TAB PO PRN ×2 (10:08→22:20)
[2022-02-03 14:00] VITALS: BP 124/80
[2022-02-03] MEDS: methylPREDNISolone 125MG 2ML VIAL IV SCH (20:31)
[2022-02-03 20:35] VITALS: BP 117/78
[2022-02-04] MEDS: IPRATROPIUM 0.5MG/ALBUTEROL 2.5MG INH SOL UD 3ML (DUONEB) NEB SCH ×4 (01:09→19:33)
[2022-02-04] MEDS: LORazepam 1 MG TAB PO PRN ×2 (05:09→18:41)
[2022-02-04] MEDS: HEPARIN SOD (PORCINE) 5000UNITS/ML 1ML VIAL/SYRINGE SQ SCH ×3 (05:10→21:20)
[2022-02-04] MEDS: ONDANSETRON 4MG/2ML VIAL IV PRN (05:10)
[2022-02-04] MEDS: NS 1,000 ML IV SCH ×2 (05:30→13:05)
[2022-02-04 06:00] VITALS: BP 130/82
[2022-02-04 06:06] LABS: BASO % 0.1 % (0.0-1.0); HEMATOCRIT 33.6 % (36.0-47.0); HEMOGLOBIN 11.2 g/dl (12.0-15.5); LYMPH # 0.2 10^3/uL (1.5-5.0); LYMPH % 2.8 % (24.0-44.0); MEAN CORPUSCULAR HEMOGLOBIN 32.7 pg (27.0-33.0); MEAN CORPUSCULAR HGB CONC 33.3 g/dl (32.0-36.5); MONO # 0.1 10^3/uL (0.0-0.8); MONO % 1.3 % (2.0-8.0); NEUTROPHILS # 7.1 10^3/uL (1.5-8.5); PLATELET COUNT, AUTOMATED 267 10^3/uL (150-450); RED BLOOD COUNT 3.43 10^6/uL (4.00-5.40); WHITE BLOOD COUNT 7.5 10^3/uL (4.0-10.0)
[2022-02-04 06:33] LABS: CALCIUM LEVEL 8.4 MG/DL (8.5-10.1); CREATININE FOR GFR 3.4 MG/DL (0.55-1.30); GLOMERULAR FILTRATION RATE 15.1 (>51); PHOSPHORUS LEVEL 5.4 MG/DL (2.5-4.9); POTASSIUM SERUM 3.3 MEQ/L (3.5-5.1)
[2022-02-04] MEDS: SYMBICORT 160/4.5MCG INHALER 6GM INH SCH ×2 (08:05→19:33)
[2022-02-04] MEDS ORDERED: POTASSIUM CHLORIDE 10MEQ SR TABLET PO ONE (08:30)
[2022-02-04] MEDS: PREGABALIN 50 MG CAP (LYRICA) PO SCH ×2 (09:00→21:00)
[2022-02-04] MEDS: SENNA 8.6 MG TAB (SENOKOT) PO SCH ×2 (09:00→21:20)
[2022-02-04] MEDS: LevoFLOXacin IV 500 MG in IV 1 EA IV SCH (10:09)
[2022-02-04] MEDS: methylPREDNISolone 125MG 2ML VIAL IV SCH ×2 (10:10→21:20)
[2022-02-04] MEDS: NICOTINE 21MG/24HR 1 EA TRANSDERMAL TD SCH (10:22)
[2022-02-04] MEDS: MORPHINE 30 MG TAB **MSIR PO PRN ×2 (10:23→17:46)
[2022-02-04 14:00] VITALS: BP 119/71
[2022-02-04] MEDS: ALBUTEROL 90 MCG/ACT 8GM HFA INHALER INH PRN (16:52)
[2022-02-04 22:00] VITALS: BP 119/73
[2022-02-05] MEDS: NS 1,000 ML IV SCH ×3 (00:35→20:35)
[2022-02-05] MEDS: IPRATROPIUM 0.5MG/ALBUTEROL 2.5MG INH SOL UD 3ML (DUONEB) NEB SCH ×2 (01:29→07:25)
[2022-02-05] MEDS: MORPHINE 30 MG TAB **MSIR PO PRN ×3 (04:59→21:27)
[2022-02-05] MEDS: HEPARIN SOD (PORCINE) 5000UNITS/ML 1ML VIAL/SYRINGE SQ SCH ×3 (05:00→21:26)
[2022-02-05 06:00] VITALS: BP 116/73
[2022-02-05 06:05] LABS: BASO % 0.1 % (0.0-1.0); HEMATOCRIT 29.6 % (36.0-47.0); HEMOGLOBIN 9.7 g/dl (12.0-15.5); LYMPH # 0.2 10^3/uL (1.5-5.0); LYMPH % 1.5 % (24.0-44.0); MEAN CORPUSCULAR HGB CONC 32.8 g/dl (32.0-36.5); MEAN CORPUSCULAR VOLUME 97.7 fl (80.0-96.0); MONO # 0.2 10^3/uL (0.0-0.8); MONO % 1.5 % (2.0-8.0); NEUTROPHILS # 10.9 10^3/uL (1.5-8.5); NEUTROPHILS % 95.6 % (36.0-66.0); PLATELET COUNT, AUTOMATED 257 10^3/uL (150-450); RED BLOOD COUNT 3.03 10^6/uL (4.00-5.40); WHITE BLOOD COUNT 11.4 10^3/uL (4.0-10.0)
[2022-02-05 06:26] LABS: ALBUMIN 2.3 GM/DL (3.2-5.2); BILIRUBIN,TOTAL 0.2 MG/DL (0.2-1.0); CREATININE FOR GFR 2.05 MG/DL (0.55-1.30); GLOMERULAR FILTRATION RATE 27.1 (>51); POTASSIUM SERUM 3.6 MEQ/L (3.5-5.1); TOTAL PROTEIN 5.2 GM/DL (6.4-8.2)
[2022-02-05] MEDS: SYMBICORT 160/4.5MCG INHALER 6GM INH SCH ×2 (07:25→20:22)
[2022-02-05] MEDS ORDERED: VENTAER INH (07:43)
[2022-02-05] MEDS ORDERED: SYMB16INH INH (07:43)
[2022-02-05] MEDS ORDERED: ALBU83IN NEB (07:46)
[2022-02-05] MEDS ORDERED: LEVALBUTEROL 1.25 MG/0.5 ML CONCENTRATE NEB NEB PRN (07:50)
[2022-02-05 09:00] VITALS: O2SAT 95
[2022-02-05] MEDS ORDERED: methylPREDNISolone 125MG 2ML VIAL IV SCH (09:00)
[2022-02-05] MEDS: PREGABALIN 50 MG CAP (LYRICA) PO SCH ×2 (09:53→21:25)
[2022-02-05] MEDS: NICOTINE 21MG/24HR 1 EA TRANSDERMAL TD SCH (09:53)
[2022-02-05] MEDS: SENNA 8.6 MG TAB (SENOKOT) PO SCH ×2 (09:53→21:25)
[2022-02-05] MEDS: LORazepam 1 MG TAB PO PRN ×2 (09:57→22:35)
[2022-02-05] MEDS: LEVALBUTEROL 1.25 MG/0.5 ML CONCENTRATE NEB NEB SCH ×3 (11:23→20:21)
[2022-02-05 14:00] VITALS: BP 114/74
[2022-02-05] MEDS: methylPREDNISolone 125MG 2ML VIAL IV SCH (17:12)
[2022-02-05 20:15] VITALS: BP 141/96
[2022-02-06] MEDS: methylPREDNISolone 125MG 2ML VIAL IV SCH ×4 (01:34→17:45)
[2022-02-06 02:00] VITALS: O2SAT 94
[2022-02-06] MEDS: NS 1,000 ML IV SCH (03:11)
[2022-02-06] MEDS: LEVALBUTEROL 1.25 MG/0.5 ML CONCENTRATE NEB NEB SCH ×8 (04:39→23:54)
[2022-02-06 05:08] VITALS: BP 109/62
[2022-02-06] MEDS: HEPARIN SOD (PORCINE) 5000UNITS/ML 1ML VIAL/SYRINGE SQ SCH ×3 (05:25→22:05)
[2022-02-06] MEDS: MORPHINE 30 MG TAB **MSIR PO PRN ×3 (05:26→22:05)
[2022-02-06 07:53] LABS: HEMOGLOBIN 10.5 g/dl (12.0-15.5); MEAN CORPUSCULAR HGB CONC 32.8 g/dl (32.0-36.5); MEAN CORPUSCULAR VOLUME 100.6 fl (80.0-96.0); PLATELET COUNT, AUTOMATED 267 10^3/uL (150-450); RED BLOOD COUNT 3.18 10^6/uL (4.00-5.40); WHITE BLOOD COUNT 9.9 10^3/uL (4.0-10.0)
[2022-02-06] MEDS: SYMBICORT 160/4.5MCG INHALER 6GM INH SCH ×2 (07:58→20:03)
[2022-02-06 08:20] LABS: ALBUMIN 2.5 GM/DL (3.2-5.2); BILIRUBIN,TOTAL 0.2 MG/DL (0.2-1.0); CALCIUM LEVEL 8.2 MG/DL (8.5-10.1); CREATININE FOR GFR 1.78 MG/DL (0.55-1.30); GLOMERULAR FILTRATION RATE 31.9 (>51); POTASSIUM SERUM 3.6 MEQ/L (3.5-5.1); TOTAL PROTEIN 5.4 GM/DL (6.4-8.2)
[2022-02-06] MEDS: NICOTINE 21MG/24HR 1 EA TRANSDERMAL TD SCH (10:10)
[2022-02-06] MEDS: LevoFLOXacin IV 500 MG in IV 1 EA IV SCH (10:11)
[2022-02-06] MEDS: PREGABALIN 50 MG CAP (LYRICA) PO SCH ×2 (10:11→20:06)
[2022-02-06] MEDS: SENNA 8.6 MG TAB (SENOKOT) PO SCH ×2 (10:11→22:06)
[2022-02-06 10:13] LABS: TOTAL 25(OH) VITAMIN D 37.7 NG/ML (30.0-100.0)
[2022-02-06] MEDS: DOXYCYCLINE HYCLATE 100MG TABLET PO SCH ×2 (10:49→22:05)
[2022-02-06] MEDS: SODIUM BICARBONATE 325 MG TAB PO SCH ×4 (10:49→22:05)
[2022-02-06] MEDS: LORazepam 1 MG TAB PO PRN ×2 (10:52→22:05)
[2022-02-06 14:00] VITALS: BP 122/74
[2022-02-06 22:00] VITALS: BP 129/89
[2022-02-07 00:45] VITALS: O2SAT 90
[2022-02-07] MEDS: methylPREDNISolone 125MG 2ML VIAL IV SCH ×3 (01:39→17:40)
[2022-02-07] MEDS: LEVALBUTEROL 1.25 MG/0.5 ML CONCENTRATE NEB NEB SCH ×5 (05:05→19:32)
[2022-02-07] MEDS: HEPARIN SOD (PORCINE) 5000UNITS/ML 1ML VIAL/SYRINGE SQ SCH ×3 (05:23→22:25)
[2022-02-07 06:00] VITALS: BP 129/87
[2022-02-07 06:00] LABS: HEMATOCRIT 33.3 % (36.0-47.0); HEMOGLOBIN 10.9 g/dl (12.0-15.5); MEAN CORPUSCULAR HEMOGLOBIN 32.7 pg (27.0-33.0); MEAN CORPUSCULAR HGB CONC 32.7 g/dl (32.0-36.5); PLATELET COUNT, AUTOMATED 270 10^3/uL (150-450); RED BLOOD COUNT 3.33 10^6/uL (4.00-5.40); WHITE BLOOD COUNT 9.9 10^3/uL (4.0-10.0)
[2022-02-07 06:24] LABS: ALBUMIN 2.7 GM/DL (3.2-5.2); BILIRUBIN,TOTAL 0.3 MG/DL (0.2-1.0); CALCIUM LEVEL 8.6 MG/DL (8.5-10.1); CREATININE FOR GFR 1.59 MG/DL (0.55-1.30); GLOMERULAR FILTRATION RATE 36.3 (>51); TOTAL PROTEIN 5.5 GM/DL (6.4-8.2)
[2022-02-07] MEDS: SYMBICORT 160/4.5MCG INHALER 6GM INH SCH ×2 (07:14→19:53)
[2022-02-07] MEDS: PREGABALIN 50 MG CAP (LYRICA) PO SCH ×2 (09:09→20:01)
[2022-02-07] MEDS: NICOTINE 21MG/24HR 1 EA TRANSDERMAL TD SCH (09:09)
[2022-02-07] MEDS: SENNA 8.6 MG TAB (SENOKOT) PO SCH ×2 (09:09→20:01)
[2022-02-07] MEDS: DOXYCYCLINE HYCLATE 100MG TABLET PO SCH ×2 (09:10→20:01)
[2022-02-07] MEDS: LORazepam 1 MG TAB PO PRN ×2 (09:10→22:26)
[2022-02-07] MEDS: SODIUM BICARBONATE 325 MG TAB PO SCH ×4 (09:10→20:00)
[2022-02-07] MEDS: MORPHINE 30 MG TAB **MSIR PO PRN ×2 (09:11→20:00)
[2022-02-07] MEDS ORDERED: ONDA-195 PO (13:36)
[2022-02-07] MEDS ORDERED: MORP15TA2 PO (13:36)
[2022-02-07] MEDS ORDERED: PRED10TA2 PO (13:36)
[2022-02-07] MEDS ORDERED: COMBAER6 INH (13:36)
[2022-02-07] MEDS ORDERED: MUCI600T31 PO (13:36)
[2022-02-07] MEDS ORDERED: DOXY100T PO (13:36)
[2022-02-07] MEDS ORDERED: PREG50CA PO (13:36)
[2022-02-07] MEDS ORDERED: IPRA0.00 INH (13:36)
[2022-02-07 14:00] VITALS: BP 141/95
[2022-02-07] MEDS: guaiFENesin ER 600 MG TAB PO PRN (14:40)
[2022-02-07] MEDS: ONDANSETRON 4MG/2ML VIAL IV PRN ×2 (17:40→22:25)
[2022-02-07 22:00] VITALS: BP_SYST 123; BP_SYST 95; BP_DIAS 47; BP_DIAS 68
[2022-02-08] MEDS: methylPREDNISolone 125MG 2ML VIAL IV SCH ×2 (00:11→09:25)
[2022-02-08] MEDS: LEVALBUTEROL 1.25 MG/0.5 ML CONCENTRATE NEB NEB SCH ×4 (00:11→11:25)
[2022-02-08 05:51] LABS: HEMATOCRIT 32.2 % (36.0-47.0); HEMOGLOBIN 10.5 g/dl (12.0-15.5); MEAN CORPUSCULAR HEMOGLOBIN 31.8 pg (27.0-33.0); MEAN CORPUSCULAR HGB CONC 32.6 g/dl (32.0-36.5); MEAN CORPUSCULAR VOLUME 97.6 fl (80.0-96.0); PLATELET COUNT, AUTOMATED 255 10^3/uL (150-450); WHITE BLOOD COUNT 8.5 10^3/uL (4.0-10.0)
[2022-02-08 06:00] VITALS: BP 127/75
[2022-02-08 06:17] LABS: ALBUMIN 2.4 GM/DL (3.2-5.2); BILIRUBIN,TOTAL 0.3 MG/DL (0.2-1.0); CALCIUM LEVEL 8.2 MG/DL (8.5-10.1); CREATININE FOR GFR 1.62 MG/DL (0.55-1.30); GLOMERULAR FILTRATION RATE 35.5 (>51); POTASSIUM SERUM 3.4 MEQ/L (3.5-5.1)
[2022-02-08] MEDS: HEPARIN SOD (PORCINE) 5000UNITS/ML 1ML VIAL/SYRINGE SQ SCH (06:19)
[2022-02-08] MEDS: SYMBICORT 160/4.5MCG INHALER 6GM INH SCH (07:21)
[2022-02-08] MEDS: PREGABALIN 50 MG CAP (LYRICA) PO SCH (09:24)
[2022-02-08] MEDS: SODIUM BICARBONATE 325 MG TAB PO SCH ×2 (09:25→12:25)
[2022-02-08] MEDS: ONDANSETRON 4MG/2ML VIAL IV PRN (09:25)
[2022-02-08] MEDS: SENNA 8.6 MG TAB (SENOKOT) PO SCH (09:25)
[2022-02-08] MEDS: NICOTINE 21MG/24HR 1 EA TRANSDERMAL TD SCH (09:25)
[2022-02-08] MEDS: DOXYCYCLINE HYCLATE 100MG TABLET PO SCH (09:26)
[2022-02-08] MEDS ORDERED: POTASSIUM CHLORIDE 10MEQ SR TABLET PO ONE (10:15)
[2022-02-08] MEDS ORDERED: SODI325T9 PO (10:18)
[2022-02-08] MEDS: LORazepam 1 MG TAB PO PRN (12:42)
== END 2022-02-08 13:40 | disposition home health service (06) | DRG 466 ==
LOC: M ED 23:09 → M ED INP 02-02 02:48 → ENRESERV 02-02 09:57 → M MSPAV 02-02 12:56
PROVIDERS: ADMIT Internal Medicine; ATTEND Internal Medicine
DX: T83.098A Other mechanical complication of other urinary catheter, initial encounter (principal); D84.9 Immunodeficiency, unspecified; E87.0 Hyperosmolality and hypernatremia; N17.9 Acute kidney failure, unspecified; J44.0 Chronic obstructive pulmonary disease with (acute) lower respiratory infection; C53.9 Malignant neoplasm of cervix uteri, unspecified; D64.9 Anemia, unspecified; C78.00 Secondary malignant neoplasm of unspecified lung; C78.7 Secondary malignant neoplasm of liver and intrahepatic bile duct; N18.30 Chronic kidney disease, stage 3 unspecified; C79.51 Secondary malignant neoplasm of bone; E87.2 Acidosis; J44.1 Chronic obstructive pulmonary disease with (acute) exacerbation; N13.30 Unspecified hydronephrosis; E87.6 Hypokalemia; F17.210 Nicotine dependence, cigarettes, uncomplicated; F31.9 Bipolar disorder, unspecified; F41.9 Anxiety disorder, unspecified; N39.0 Urinary tract infection, site not specified; Z92.21 Personal history of antineoplastic chemotherapy; Z79.899 Other long term (current) drug therapy; Z88.8 Allergy status to other drugs, medicaments and biological substances; Y84.6 Urinary catheterization as the cause of abnormal reaction of the patient, or of later complication, without mention of misadventure at the time of the procedure

== ENCOUNTER 2022-02-14 08:51 | Emergency (ER) | payer MEDICAID, OTHER, SELFPAY ==
[~2022-02-14] VITALS: Ht 172.7 cm; Wt 54.4 kg
[2022-02-14 09:31] LABS: BASO % 0.2 % (0.0-1.0); EOS # 0.1 10^3/uL (0.0-0.5); EOS % 0.7 % (0.0-3.0); HEMATOCRIT 29.8 % (36.0-47.0); HEMOGLOBIN 9.9 g/dl (12.0-15.5); LYMPH # 0.8 10^3/uL (1.5-5.0); LYMPH % 6.1 % (24.0-44.0); MEAN CORPUSCULAR HEMOGLOBIN 32.7 pg (27.0-33.0); MEAN CORPUSCULAR HGB CONC 33.2 g/dl (32.0-36.5); MEAN CORPUSCULAR VOLUME 98.3 fl (80.0-96.0); MONO # 0.6 10^3/uL (0.0-0.8); MONO % 4.6 % (2.0-8.0); NEUTROPHILS # 10.6 10^3/uL (1.5-8.5); NEUTROPHILS % 86.4 % (36.0-66.0); PLATELET COUNT, AUTOMATED 178 10^3/uL (150-450); RED BLOOD COUNT 3.03 10^6/uL (4.00-5.40); WHITE BLOOD COUNT 12.3 10^3/uL (4.0-10.0)
[2022-02-14 10:30] LABS: ALBUMIN 2.5 GM/DL (3.2-5.2); BILIRUBIN,DIRECT 0.1 MG/DL (0.0-0.2); BILIRUBIN,TOTAL 0.6 MG/DL (0.2-1.0); CALCIUM LEVEL 7.4 MG/DL (8.5-10.1); CREATININE FOR GFR 1.04 MG/DL (0.55-1.30); GLOMERULAR FILTRATION RATE 59.2 (>51); POTASSIUM SERUM 3.4 MEQ/L (3.5-5.1); TOTAL PROTEIN 4.9 GM/DL (6.4-8.2)
[2022-02-14 10:51] VITALS: BP 139/87
== END 2022-02-14 10:53 | disposition home or self-care (01) ==
LOC: M ED 08:51
DX: R60.9 Edema, unspecified (principal); R91.8 Other nonspecific abnormal finding of lung field; J44.9 Chronic obstructive pulmonary disease, unspecified; F31.9 Bipolar disorder, unspecified; Z87.410 Personal history of cervical dysplasia; F17.200 Nicotine dependence, unspecified, uncomplicated; Z79.899 Other long term (current) drug therapy; Z91.89 Other specified personal risk factors, not elsewhere classified; Z88.8 Allergy status to other drugs, medicaments and biological substances

== ENCOUNTER → 2022-02-14 | Outpatient (POV) | payer OTHER ==
[~2022-02-14] VITALS: Ht 172.7 cm; Wt 54.4 kg
[~2022-02-14] MED LIST changes: +ALBU2.5V10 NEB; +COMBAER6 INH; +DOXY100T PO; +IPRA0.00 INH; +ONDA-195 PO; +PREG50CA PO; +SODI325T9 PO; +SYMB16INH INH; +VENTAER INH
[2022-02-14 08:30] VITALS: BP 132/80
== END ==
LOC: M IRPOV 08:22
PROVIDERS: ATTEND Radiology Diagnostic Radiology
DX: Z01.89 Encounter for other specified special examinations (principal)

== ENCOUNTER → 2022-02-17 | Outpatient (CLI) | payer OTHER | LOC: M LABSMTC 09:13 | PROVIDERS: ATTEND Anesthesiology | DX: Z01.812 Encounter for preprocedural laboratory examination (principal); Z20.822 Contact with and (suspected) exposure to COVID-19 ==

== ENCOUNTER → 2022-02-27 | Outpatient (CLI) | payer OTHER | LOC: M WUC 10:13 | PROVIDERS: ATTEND Physician Assistant | DX: M25.571 Pain in right ankle and joints of right foot (principal); M79.89 Other specified soft tissue disorders; S82.831A Other fracture of upper and lower end of right fibula, initial encounter for closed fracture; X58.XXXA Exposure to other specified factors, initial encounter; Y92.9 Unspecified place or not applicable; Y93.9 Activity, unspecified; Y99.9 Unspecified external cause status ==

== ENCOUNTER → 2022-03-05 | Outpatient (CLI) | payer OTHER | LOC: M LABSMTC 11:58 | PROVIDERS: ATTEND Anesthesiology | DX: Z01.812 Encounter for preprocedural laboratory examination (principal); Z20.822 Contact with and (suspected) exposure to COVID-19 ==

== ENCOUNTER 2022-03-12 11:02 | Inpatient (IN) | payer OTHER ==
[~2022-03-12] VITALS: Ht 172.7 cm; Wt 47.2 kg
[2022-03-12] MEDS ORDERED: NS 1,000 ML IV ONE (12:25)
[2022-03-12 13:10] LABS: VENOUS HCO3 21.3 MEQ/L (23.0-27.0); VENOUS O2 SATURATION 61.1 % (60.0-80.0); VENOUS PARTIAL PRESSURE CO2 35.8 mmHg (38.0-50.0); VENOUS PARTIAL PRESSURE O2 34.5 mmHg (30.0-50.0); VENOUS PH 7.392 UNITS (7.330-7.430); VENOUS STANDARD HCO3 21.2 MEQ/L; VENOUS TOTAL CO2 22.4 MEQ/L (24.0-28.0)
[2022-03-12 13:16] LABS: BASO % 0.2 % (0.0-1.0); HEMATOCRIT 35.8 % (36.0-47.0); HEMOGLOBIN 12.4 g/dl (12.0-15.5); LYMPH # 0.6 10^3/uL (1.5-5.0); LYMPH % 6.1 % (24.0-44.0); MEAN CORPUSCULAR HEMOGLOBIN 31.6 pg (27.0-33.0); MEAN CORPUSCULAR HGB CONC 34.6 g/dl (32.0-36.5); MEAN CORPUSCULAR VOLUME 91.3 fl (80.0-96.0); MONO # 0.7 10^3/uL (0.0-0.8); NEUTROPHILS % 84.4 % (36.0-66.0); PLATELET COUNT, AUTOMATED 293 10^3/uL (150-450); RED BLOOD COUNT 3.92 10^6/uL (4.00-5.40); WHITE BLOOD COUNT 9.5 10^3/uL (4.0-10.0)
[2022-03-12] MEDS ORDERED: methylPREDNISolone 125MG 2ML VIAL IV ONE (13:50)
[2022-03-12] MEDS ORDERED: ONDANSETRON 4MG/2ML VIAL IV ONE (13:50)
[2022-03-12 13:55] LABS: ALBUMIN 2.8 GM/DL (3.2-5.2); BILIRUBIN,DIRECT 0.3 MG/DL (0.0-0.2); BILIRUBIN,TOTAL 0.7 MG/DL (0.2-1.0); CALCIUM LEVEL 8.4 MG/DL (8.5-10.1); CREATININE FOR GFR 1.36 MG/DL (0.55-1.30); GLOMERULAR FILTRATION RATE 43.5 (>51); POTASSIUM SERUM 3.4 MEQ/L (3.5-5.1); THYROID STIMULATING HORMONE 1.63 uIU/ML (0.358-3.740)
[2022-03-12 14:31] VITALS: O2SAT 93
[2022-03-12] MEDS ORDERED: COMBIVENT RESPIMAT 100-20MCG INHALER 4GM INH STA (14:58)
[2022-03-12] MEDS ORDERED: MOM 30ML SUSPENSION UDC PO PRN (15:40)
[2022-03-12] MEDS ORDERED: MAALOX 30 ML SUSP *UDC PO PRN (15:40)
[2022-03-12] MEDS ORDERED: ACETAMINOPHEN TAB 650MG DOSE (2X325MG) PO PRN (15:40)
[2022-03-12] MEDS ORDERED: KCL 20MEQ in NS 1000ML 1,000 ML IV SCH (17:00)
[2022-03-12] MEDS ORDERED: REMDESIVIR 200 MG in NS 250 ML IV ONE (18:00)
[2022-03-12] MEDS ORDERED: ONDA-83 PO (18:25)
[2022-03-12] MEDS ORDERED: VENTAER INH (18:25)
[2022-03-12] MEDS ORDERED: MUCI600T31 PO (18:25)
[2022-03-12] MEDS ORDERED: PREG50CA PO (18:25)
[2022-03-12] MEDS ORDERED: COMBAER6 INH (18:25)
[2022-03-12] MEDS ORDERED: SYMB16INH INH (18:25)
[2022-03-12] MEDS ORDERED: MORP15TA2 PO (18:25)
[2022-03-12] MEDS ORDERED: ALBU2.5V10 INH (18:25)
[2022-03-12] MEDS ORDERED: LORA1TAB4 PO (18:25)
[2022-03-12] MEDS ORDERED: HOME MED LIST COMPLETE! XX SCH (18:30)
[2022-03-12 18:56] VITALS: BP 131/79
[2022-03-12] MEDS: SYMBICORT 160/4.5MCG INHALER 6GM INH SCH (19:28)
[2022-03-12] MEDS ORDERED: SODIUM CHLORIDE 0.9% INJ 10 ML SYR IV ONE (20:00)
[2022-03-12 21:04] VITALS: BP 134/88
[2022-03-12] MEDS: dexameTHASONE 4 MG/ML 1ML VIAL (J1100 PER 1MG) IV SCH (22:52)
[2022-03-13] MEDS: LR 1,000 ML IV SCH ×2 (02:30→10:21)
[2022-03-13] MEDS: ONDANSETRON 4MG/2ML VIAL IV PRN ×2 (02:39→13:47)
[2022-03-13 05:30] VITALS: BP 142/92
[2022-03-13] MEDS ORDERED: POTASSIUM CHLORIDE 10MEQ SR TABLET PO ONE ×2 (06:00→09:00)
[2022-03-13 06:17] LABS: HEMATOCRIT 32.8 % (36.0-47.0); HEMOGLOBIN 11.3 g/dl (12.0-15.5); MEAN CORPUSCULAR HEMOGLOBIN 31.7 pg (27.0-33.0); MEAN CORPUSCULAR HGB CONC 34.5 g/dl (32.0-36.5); MEAN CORPUSCULAR VOLUME 91.9 fl (80.0-96.0); PLATELET COUNT, AUTOMATED 283 10^3/uL (150-450); RED BLOOD COUNT 3.57 10^6/uL (4.00-5.40); WHITE BLOOD COUNT 6.2 10^3/uL (4.0-10.0)
[2022-03-13 06:41] LABS: ALBUMIN 2.8 GM/DL (3.2-5.2); BILIRUBIN,DIRECT 0.2 MG/DL (0.0-0.2); BILIRUBIN,TOTAL 0.6 MG/DL (0.2-1.0); CALCIUM LEVEL 8.9 MG/DL (8.5-10.1); CREATININE FOR GFR 1.54 MG/DL (0.55-1.30); GLOMERULAR FILTRATION RATE 37.7 (>51); POTASSIUM SERUM 3.2 MEQ/L (3.5-5.1); TOTAL PROTEIN 6.4 GM/DL (6.4-8.2)
[2022-03-13] MEDS: SYMBICORT 160/4.5MCG INHALER 6GM INH SCH ×2 (07:38→19:18)
[2022-03-13] MEDS ORDERED: IPRATROPIUM 0.5MG/ALBUTEROL 2.5MG INH SOL UD 3ML (DUONEB) NEB PRN (08:55)
[2022-03-13] MEDS: ENOXAPARIN 40MG/0.4ML SYRINGE (J1650 PER 10MG) SC SCH (09:00)
[2022-03-13] MEDS: DOXYCYCLINE HYCLATE 100MG TABLET PO SCH ×2 (09:00→20:29)
[2022-03-13] MEDS: dexameTHASONE 4 MG/ML 1ML VIAL (J1100 PER 1MG) IV SCH ×2 (10:17→20:30)
[2022-03-13] MEDS: cefTRIAXone SOD 2 GM in D5W MINI-BAG PLUS 50 ML IV SCH (13:05)
[2022-03-13 14:00] VITALS: BP 148/88
[2022-03-13 15:07] LABS: CALCIUM LEVEL 8.6 MG/DL (8.5-10.1); CREATININE FOR GFR 1.19 MG/DL (0.55-1.30); GLOMERULAR FILTRATION RATE 50.7 (>51); POTASSIUM SERUM 3.8 MEQ/L (3.5-5.1)
[2022-03-13] MEDS ORDERED: DIAPER RELIEF PASTE (DESITIN) 60GM TOP SCH (15:50)
[2022-03-13] MEDS: REMDESIVIR 100 MG in NS 250 ML IV SCH (18:26)
[2022-03-13] MEDS: LOPERAMIDE 2 MG CAPLET PO PRN (18:33)
[2022-03-13] MEDS: SODIUM CHLORIDE 0.9% INJ 10 ML SYR IV SCH (18:33)
[2022-03-14 05:38] VITALS: BP 142/98
[2022-03-14 06:43] LABS: HEMOGLOBIN 12.7 g/dl (12.0-15.5); MEAN CORPUSCULAR HEMOGLOBIN 31.4 pg (27.0-33.0); MEAN CORPUSCULAR HGB CONC 34.3 g/dl (32.0-36.5); MEAN CORPUSCULAR VOLUME 91.4 fl (80.0-96.0); PLATELET COUNT, AUTOMATED 300 10^3/uL (150-450); RED BLOOD COUNT 4.05 10^6/uL (4.00-5.40); WHITE BLOOD COUNT 11.2 10^3/uL (4.0-10.0)
[2022-03-14 07:10] LABS: CREATININE FOR GFR 1.3 MG/DL (0.55-1.30); GLOMERULAR FILTRATION RATE 45.8 (>51); MAGNESIUM LEVEL 2.1 MG/DL (1.8-2.4); POTASSIUM SERUM 4.7 MEQ/L (3.5-5.1)
[2022-03-14] MEDS: SYMBICORT 160/4.5MCG INHALER 6GM INH SCH (07:54)
[2022-03-14] MEDS: ENOXAPARIN 40MG/0.4ML SYRINGE (J1650 PER 10MG) SC SCH (09:00)
[2022-03-14] MEDS ORDERED: COMBAER6 INH (09:32)
[2022-03-14] MEDS ORDERED: CEFD300C41 PO (09:32)
[2022-03-14] MEDS ORDERED: SYMB16INH INH (09:32)
[2022-03-14] MEDS ORDERED: PRED10TA2 PO (09:32)
[2022-03-14] MEDS ORDERED: DOXY100T PO (09:32)
[2022-03-14] MEDS: DOXYCYCLINE HYCLATE 100MG TABLET PO SCH (10:11)
[2022-03-14] MEDS: LOPERAMIDE 2 MG CAPLET PO PRN (10:11)
[2022-03-14] MEDS: dexameTHASONE 4 MG/ML 1ML VIAL (J1100 PER 1MG) IV SCH (10:12)
[2022-03-14] MEDS: cefTRIAXone SOD 2 GM in D5W MINI-BAG PLUS 50 ML IV SCH (13:54)
[2022-03-14 14:00] VITALS: BP 122/98
[2022-03-14] MEDS: REMDESIVIR 100 MG in NS 250 ML IV SCH (16:27)
[2022-03-14] MEDS: SODIUM CHLORIDE 0.9% INJ 10 ML SYR IV SCH (17:43)
== END 2022-03-14 17:46 | disposition home health service (06) | DRG 137 ==
LOC: M ED 11:02 → M ED INP 15:39 → ENRESERV 17:15 → M MSPAV 18:40
PROVIDERS: ADMIT Family Medicine; ATTEND Internal Medicine
PROC: XW033E5 Introduction of Remdesivir Anti-infective into Peripheral Vein, Percutaneous Approach, New Technology Group 5 (ICD-10-PCS; principal; 2022-03-12)
PROC: 3E0333Z Introduction of Anti-inflammatory into Peripheral Vein, Percutaneous Approach (ICD-10-PCS; 2022-03-12)
DX: U07.1 COVID-19 (principal); N18.30 Chronic kidney disease, stage 3 unspecified; J44.1 Chronic obstructive pulmonary disease with (acute) exacerbation; C53.9 Malignant neoplasm of cervix uteri, unspecified; E86.0 Dehydration; F17.210 Nicotine dependence, cigarettes, uncomplicated; E87.6 Hypokalemia; R53.1 Weakness; Z79.51 Long term (current) use of inhaled steroids; Z79.899 Other long term (current) drug therapy; Z88.8 Allergy status to other drugs, medicaments and biological substances; J44.0 Chronic obstructive pulmonary disease with (acute) lower respiratory infection; Z96.0 Presence of urogenital implants; R19.7 Diarrhea, unspecified; R11.2 Nausea with vomiting, unspecified

== ENCOUNTER 2022-03-15 08:21 | Emergency (ER) | payer OTHER ==
[~2022-03-15] VITALS: Ht 172.7 cm; Wt 50.0 kg
[~2022-03-15 08:21] MED LIST changes: +ALBU2.5V10 INH; +CEFD300C41 PO; +LORA1TAB4 PO; +ONDA-83 PO
[2022-03-15 09:32] VITALS: BP 123/82
== END 2022-03-15 09:38 | disposition home or self-care (01) ==
LOC: EDBD 08:21 → M ED 08:21
DX: T83.092A Other mechanical complication of nephrostomy catheter, initial encounter (principal); Z85.41 Personal history of malignant neoplasm of cervix uteri

== ENCOUNTER 2022-03-16 08:09 | Day surgery (SDC) | payer OTHER ==
[~2022-03-16] VITALS: Ht 172.7 cm; Wt 49.9 kg
[~2022-03-16 08:09] MED LIST changes: +MIDAZOLAM INJ 2MG/2ML VIAL (J2250 PER 1MG) As Ordered ONE; +ONDANSETRON 4MG 2ML VIAL As Ordered ONE; +ceFAZolin SOD 2 GM in IV 1 EA IV ONE; +dexameTHASONE 4 MG/ML 1ML VIAL (J1100 PER 1MG) As Ordered ONE; +fentaNYL 100 MCG/2 ML INJECTION As Ordered ONE; +propofoL 200 MG/20 ML VIAL As Ordered ONE
[2022-03-16] MEDS ORDERED: LR 1,000 ML IV SCH ×2 (08:40→10:50)
[2022-03-16] MEDS ORDERED: LEVALBUTEROL 1.25 MG/0.5 ML CONCENTRATE NEB NEB ONE (08:50)
[2022-03-16] MEDS ORDERED: ISOVUE-300 61% 50ML VIAL As Ordered ONE (09:54)
[2022-03-16] MEDS ORDERED: LIDOCAINE 2% INJ 100 MG/5 ML SYRINGE As Ordered ONE (09:57)
[2022-03-16] MEDS ORDERED: propofoL 200 MG/20 ML VIAL As Ordered ONE (10:28)
[2022-03-16] MEDS ORDERED: fentaNYL 100 MCG/2 ML INJECTION IV PRN (10:50)
[2022-03-16] MEDS ORDERED: ONDANSETRON 4MG 2ML VIAL IV PRN (10:50)
[2022-03-16] MEDS ORDERED: oxyCODONE 5MG TAB PO PRN (10:50)
[2022-03-16] MEDS ORDERED: HYDROMORPHONE HCL 0.5 MG/ 0.5 ML SYRINGE (J1170 PER 1) IV PRN (10:50)
[2022-03-16 11:25] VITALS: BP 130/85
== END 2022-03-16 11:42 | disposition home or self-care (01) ==
LOC: M SDC 08:09
PROVIDERS: ATTEND Urology
DX: N13.30 Unspecified hydronephrosis (principal); C53.9 Malignant neoplasm of cervix uteri, unspecified; C79.51 Secondary malignant neoplasm of bone; Z92.21 Personal history of antineoplastic chemotherapy; Z92.3 Personal history of irradiation; F17.210 Nicotine dependence, cigarettes, uncomplicated; F12.10 Cannabis abuse, uncomplicated; F32.A Depression, unspecified; K70.30 Alcoholic cirrhosis of liver without ascites; Z79.899 Other long term (current) drug therapy; Z79.52 Long term (current) use of systemic steroids; Z79.51 Long term (current) use of inhaled steroids
CPT/HCPCS: 52332; 74420; 93005; C1769; C1894; C2617; J0690; J1100; J2250; J2405; J3010; Q9967

== ENCOUNTER 2022-03-19 07:40 | Emergency (ER) | payer OTHER ==
[~2022-03-19] VITALS: Ht 172.7 cm; Wt 45.5 kg
[~2022-03-19 07:40] MED LIST changes: -MIDAZOLAM INJ 2MG/2ML VIAL (J2250 PER 1MG) As Ordered ONE; -ONDANSETRON 4MG 2ML VIAL As Ordered ONE; -ceFAZolin SOD 2 GM in IV 1 EA IV ONE; -dexameTHASONE 4 MG/ML 1ML VIAL (J1100 PER 1MG) As Ordered ONE; -fentaNYL 100 MCG/2 ML INJECTION As Ordered ONE; -propofoL 200 MG/20 ML VIAL As Ordered ONE
[2022-03-19 07:54] VITALS: BP 103/75
== END 2022-03-19 10:45 | disposition left against medical advice (07) ==
LOC: M ED 07:40
DX: Z53.9 Procedure and treatment not carried out, unspecified reason (principal); I99.8 Other disorder of circulatory system; M62.271 Nontraumatic ischemic infarction of muscle, right ankle and foot; F17.200 Nicotine dependence, unspecified, uncomplicated; Z79.899 Other long term (current) drug therapy; Z88.8 Allergy status to other drugs, medicaments and biological substances; Z91.048 Other nonmedicinal substance allergy status

== ENCOUNTER 2022-03-19 13:31 | Emergency (ER) | payer OTHER ==
[~2022-03-19] VITALS: Ht 172.7 cm; Wt 45.9 kg
[2022-03-19] MEDS ORDERED: HEPARIN SOD (PORCINE) 5000UNITS/ML 1ML VIAL/SYRINGE IV ONE (14:35)
[2022-03-19] MEDS ORDERED: NS 1,000 ML IV ONE (14:35)
[2022-03-19] MEDS ORDERED: HEPARIN DRIP 25,000 UNITS in IV 1 EA IV SCH (14:35)
[2022-03-19] MEDS ORDERED: ASPIRIN 81 MG CHEW TABLET PO ONE (14:35)
[2022-03-19] MEDS: HYDROMORPHONE HCL 0.5 MG/ 0.5 ML SYRINGE (J1170 PER 1) IV PRN ×2 (15:05→16:10)
[2022-03-19 15:19] LABS: INR 1.15; PROTHROMBIN TIME 15.1 SECONDS (12.7-14.5)
[2022-03-19 15:20] LABS: PARTIAL THROMBOPLASTIN TIME 29.6 SECONDS (25.9-37.0)
[2022-03-19 15:38] LABS: CALCIUM LEVEL 8.3 MG/DL (8.5-10.1); CREATININE FOR GFR 1.2 MG/DL (0.55-1.30); GLOMERULAR FILTRATION RATE 50.2 (>51); POTASSIUM SERUM 4.2 MEQ/L (3.5-5.1)
[2022-03-19] MEDS ORDERED: ISOVUE-370 76% 100ML VIAL As Ordered ONE (15:46)
[2022-03-19 15:52] LABS: BASO % 0.1 % (0.0-1.0); EOS % 0.1 % (0.0-3.0); HEMATOCRIT 31.9 % (36.0-47.0); HEMOGLOBIN 10.9 g/dl (12.0-15.5); LYMPH # 0.4 10^3/uL (1.5-5.0); LYMPH % 1.7 % (24.0-44.0); MEAN CORPUSCULAR HEMOGLOBIN 31.5 pg (27.0-33.0); MEAN CORPUSCULAR HGB CONC 34.2 g/dl (32.0-36.5); MEAN CORPUSCULAR VOLUME 92.2 fl (80.0-96.0); MONO # 0.9 10^3/uL (0.0-0.8); MONO % 4.2 % (2.0-8.0); NEUTROPHILS # 19.7 10^3/uL (1.5-8.5); NEUTROPHILS % 92.2 % (36.0-66.0); PLATELET COUNT, AUTOMATED 155 10^3/uL (150-450); RED BLOOD COUNT 3.46 10^6/uL (4.00-5.40); WHITE BLOOD COUNT 21.4 10^3/uL (4.0-10.0)
[2022-03-19] MEDS ORDERED: HYDROMORPHONE HCL 0.5 MG/ 0.5 ML SYRINGE (J1170 PER 1) IV ONE ×2 (16:55→18:35)
[2022-03-19 18:48] VITALS: BP 103/61
== END 2022-03-19 19:00 | disposition short-term general hospital (02) ==
LOC: M ED 13:31
DX: I99.8 Other disorder of circulatory system (principal); M62.271 Nontraumatic ischemic infarction of muscle, right ankle and foot; C41.0 Malignant neoplasm of bones of skull and face; C41.4 Malignant neoplasm of pelvic bones, sacrum and coccyx; C79.51 Secondary malignant neoplasm of bone; I82.3 Embolism and thrombosis of renal vein; F17.200 Nicotine dependence, unspecified, uncomplicated; I70.201 Unspecified atherosclerosis of native arteries of extremities, right leg; E27.9 Disorder of adrenal gland, unspecified; N13.2 Hydronephrosis with renal and ureteral calculous obstruction; K76.89 Other specified diseases of liver; Z96.0 Presence of urogenital implants; Z79.899 Other long term (current) drug therapy; Z88.8 Allergy status to other drugs, medicaments and biological substances; Z91.048 Other nonmedicinal substance allergy status
CPT/HCPCS: 36415; 75635; 80047; 80048; 85025; 85610; 85730; 87426; 87428; 96361; 96374; 96375; 96376; 99284; J1170; J1644; Q9967

== ENCOUNTER 2022-03-24 08:00 | Inpatient (IN) | payer MEDICARE, OTHER ==
[~2022-03-24] VITALS: Ht 172.7 cm; Wt 55.2 kg
[2022-03-24 10:02] LABS: BASO # 0.1 10^3/uL (0.0-0.2); BASO % 0.4 % (0.0-1.0); EOS % 0.1 % (0.0-3.0); HEMATOCRIT 34.5 % (36.0-47.0); HEMOGLOBIN 11.3 g/dl (12.0-15.5); LYMPH # 0.5 10^3/uL (1.5-5.0); LYMPH % 3.1 % (24.0-44.0); MEAN CORPUSCULAR HEMOGLOBIN 31.1 pg (27.0-33.0); MEAN CORPUSCULAR HGB CONC 32.8 g/dl (32.0-36.5); MONO # 0.6 10^3/uL (0.0-0.8); MONO % 3.7 % (2.0-8.0); NEUTROPHILS # 13.4 10^3/uL (1.5-8.5); PLATELET COUNT, AUTOMATED 214 10^3/uL (150-450); RED BLOOD COUNT 3.63 10^6/uL (4.00-5.40); WHITE BLOOD COUNT 15.3 10^3/uL (4.0-10.0)
[2022-03-24 10:28] LABS: ALBUMIN 2.1 GM/DL (3.2-5.2); BILIRUBIN,DIRECT 0.1 MG/DL (0.0-0.2); BILIRUBIN,TOTAL 1.2 MG/DL (0.2-1.0)
[2022-03-24] MEDS ORDERED: ONDANSETRON 4MG ORAL DISINTEGRATING TAB PO ONE (11:40)
[2022-03-24] MEDS ORDERED: PREGABALIN 50 MG CAP (LYRICA) PO ONE (11:40)
[2022-03-24] MEDS ORDERED: PREG50CA2 (12:58)
[2022-03-24] MEDS ORDERED: ELIQ5TAB PO (12:58)
[2022-03-24] MEDS ORDERED: OXYC-517 PO (12:58)
[2022-03-24] MEDS ORDERED: LIDOCAINE 1% MDV 20ML VIAL As Ordered ONE (14:55)
[2022-03-24] MEDS ORDERED: NS 1,000 ML IV ONE (15:55)
[2022-03-24] MEDS ORDERED: APIXABAN 5 MG TAB (ELIQUIS) PO ONE (16:05)
[2022-03-24] MEDS ORDERED: BUDE10.2 INH (18:18)
[2022-03-24] MEDS ORDERED: HOME MED LIST COMPLETE! XX SCH (18:20)
[2022-03-24] MEDS ORDERED: LORazepam 1 MG TAB PO ONE (19:05)
[2022-03-24] MEDS ORDERED: ACETAMINOPHEN TAB 650MG DOSE (2X325MG) PO PRN (23:35)
[2022-03-24] MEDS ORDERED: HYDROMORPHONE HCL 0.5 MG/ 0.5 ML SYRINGE (J1170 PER 1) IV PRN (23:35)
[2022-03-25 01:56] VITALS: BP 136/89
[2022-03-25] MEDS: ONDANSETRON 4MG 2ML VIAL IV PRN ×2 (02:59→14:19)
[2022-03-25] MEDS ORDERED: NS 500 ML IV ONE (03:10)
[2022-03-25] MEDS ORDERED: NS 1,000 ML IV SCH (03:10)
[2022-03-25] MEDS: HYDROMORPHONE HCL 0.5 MG/ 0.5 ML SYRINGE (J1170 PER 1) IV PRN ×2 (03:46→15:53)
[2022-03-25] MEDS: SODIUM CHLORIDE 0.9% INJ 10 ML SYR IV SCH ×2 (05:17→17:12)
[2022-03-25 06:00] VITALS: BP 133/80
[2022-03-25 06:02] LABS: BLOOD UREA NITROGEN 13 MG/DL (7-18); CALCIUM LEVEL 6.9 MG/DL (8.5-10.1); CARBON DIOXIDE LEVEL 23 MEQ/L (21-32); CHLORIDE LEVEL 107 MEQ/L (98-107); CREATININE FOR GFR 0.74 MG/DL (0.55-1.30); GLOMERULAR FILTRATION RATE > 60.0 (>51); GLUCOSE, FASTING 85 MG/DL (70-100); POTASSIUM SERUM 3.7 MEQ/L (3.5-5.1); SODIUM LEVEL 135 MEQ/L (136-145)
[2022-03-25] MEDS: SYMBICORT 160/4.5MCG INHALER 6GM INH SCH ×2 (07:58→19:27)
[2022-03-25] MEDS: ONDANSETRON 4MG TAB PO PRN (09:42)
[2022-03-25] MEDS: PREGABALIN 50 MG CAP (LYRICA) PO SCH ×2 (09:43→20:55)
[2022-03-25] MEDS: APIXABAN 5 MG TAB (ELIQUIS) PO SCH ×2 (09:43→20:56)
[2022-03-25] MEDS: MORPHINE 15 MG SA TAB PO SCH ×2 (09:44→20:56)
[2022-03-25] MEDS: LORazepam 1 MG TAB PO PRN (12:06)
[2022-03-25 14:00] VITALS: BP 123/85
[2022-03-25] MEDS: oxyCODONE 5MG TAB PO PRN (14:26)
[2022-03-25] MEDS ORDERED: NYSTATIN 100,000 UNITS/GM TOPICAL PWD 15 GM TOP PRN (19:30)
[2022-03-25] MEDS: NICOTINE 21MG/24HR 1 EA TRANSDERMAL TD SCH (20:58)
[2022-03-25 22:00] VITALS: BP 120/83
[2022-03-26] MEDS: SODIUM CHLORIDE 0.9% INJ 10 ML SYR IV SCH ×2 (05:57→16:38)
[2022-03-26 06:00] VITALS: BP 118/80
[2022-03-26 06:01] LABS: HEMATOCRIT 25.7 % (36.0-47.0); MEAN CORPUSCULAR HEMOGLOBIN 31.9 pg (27.0-33.0); MEAN CORPUSCULAR HGB CONC 32.7 g/dl (32.0-36.5); MEAN CORPUSCULAR VOLUME 97.7 fl (80.0-96.0); PLATELET COUNT, AUTOMATED 173 10^3/uL (150-450); RED BLOOD COUNT 2.63 10^6/uL (4.00-5.40); WHITE BLOOD COUNT 13.7 10^3/uL (4.0-10.0)
[2022-03-26 06:02] LABS: HEMOGLOBIN 8.4 g/dl (12.0-15.5)
[2022-03-26 06:13] LABS: BLOOD UREA NITROGEN 12 MG/DL (7-18); CALCIUM LEVEL 7.5 MG/DL (8.5-10.1); CARBON DIOXIDE LEVEL 20 MEQ/L (21-32); CHLORIDE LEVEL 106 MEQ/L (98-107); CREATININE FOR GFR 0.96 MG/DL (0.55-1.30); GLOMERULAR FILTRATION RATE > 60.0 (>51); GLUCOSE, FASTING 133 MG/DL (70-100); POTASSIUM SERUM 3.6 MEQ/L (3.5-5.1); SODIUM LEVEL 135 MEQ/L (136-145)
[2022-03-26] MEDS: SYMBICORT 160/4.5MCG INHALER 6GM INH SCH ×2 (07:32→20:06)
[2022-03-26] MEDS: ONDANSETRON 4MG 2ML VIAL IV PRN (08:23)
[2022-03-26] MEDS: PREGABALIN 50 MG CAP (LYRICA) PO SCH ×2 (08:24→20:40)
[2022-03-26] MEDS: NICOTINE 21MG/24HR 1 EA TRANSDERMAL TD SCH (08:24)
[2022-03-26] MEDS: MORPHINE 15 MG SA TAB PO SCH ×2 (08:26→20:41)
[2022-03-26] MEDS ORDERED: APIXABAN 5 MG TAB (ELIQUIS) PO SCH (09:00)
[2022-03-26] MEDS: LORazepam 1 MG TAB PO PRN ×2 (09:51→21:49)
[2022-03-26] MEDS: HYDROMORPHONE HCL 0.5 MG/ 0.5 ML SYRINGE (J1170 PER 1) IV PRN ×3 (11:07→22:07)
[2022-03-26] MEDS: FLUCONAZOLE 50MG TABLET PO SCH (11:08)
[2022-03-26 14:00] VITALS: BP 103/73
[2022-03-26] MEDS ORDERED: LORazepam 0.5 MG TAB PO ONE (16:30)
[2022-03-26 22:00] VITALS: BP 122/81
[2022-03-26] MEDS: DIAPER RELIEF PASTE (DESITIN) 60GM TOP PRN (22:06)
[2022-03-27] MEDS: DIAPER RELIEF PASTE (DESITIN) 60GM TOP PRN (03:45)
[2022-03-27] MEDS: HYDROMORPHONE HCL 0.5 MG/ 0.5 ML SYRINGE (J1170 PER 1) IV PRN ×3 (03:51→17:14)
[2022-03-27] MEDS: SODIUM CHLORIDE 0.9% INJ 10 ML SYR IV SCH ×2 (05:28→17:14)
[2022-03-27 05:32] LABS: HEMATOCRIT 26.6 % (36.0-47.0); HEMOGLOBIN 8.8 g/dl (12.0-15.5); MEAN CORPUSCULAR HEMOGLOBIN 32.5 pg (27.0-33.0); MEAN CORPUSCULAR HGB CONC 33.1 g/dl (32.0-36.5); MEAN CORPUSCULAR VOLUME 98.2 fl (80.0-96.0); PLATELET COUNT, AUTOMATED 168 10^3/uL (150-450); RED BLOOD COUNT 2.71 10^6/uL (4.00-5.40); WHITE BLOOD COUNT 15.2 10^3/uL (4.0-10.0)
[2022-03-27 06:00] VITALS: BP 116/80
[2022-03-27 06:03] LABS: CALCIUM LEVEL 7.8 MG/DL (8.5-10.1); CREATININE FOR GFR 1.06 MG/DL (0.55-1.30); POTASSIUM SERUM 3.9 MEQ/L (3.5-5.1)
[2022-03-27] MEDS: SYMBICORT 160/4.5MCG INHALER 6GM INH SCH ×2 (07:48→19:49)
[2022-03-27] MEDS: NICOTINE 21MG/24HR 1 EA TRANSDERMAL TD SCH (10:17)
[2022-03-27] MEDS: PREGABALIN 50 MG CAP (LYRICA) PO SCH ×2 (10:17→21:18)
[2022-03-27] MEDS: MORPHINE 15 MG SA TAB PO SCH ×2 (10:25→21:18)
[2022-03-27] MEDS: LORazepam 1 MG TAB PO PRN (10:35)
[2022-03-27] MEDS: FLUCONAZOLE 50MG TABLET PO SCH (13:16)
[2022-03-27 14:00] VITALS: BP 116/78
[2022-03-27] MEDS: APIXABAN 5 MG TAB (ELIQUIS) PO SCH (21:18)
[2022-03-27 21:40] VITALS: BP 117/78
[2022-03-28] MEDS: HYDROMORPHONE HCL 0.5 MG/ 0.5 ML SYRINGE (J1170 PER 1) IV PRN (01:34)
[2022-03-28 04:39] VITALS: BP 103/71
[2022-03-28] MEDS: SODIUM CHLORIDE 0.9% INJ 10 ML SYR IV SCH ×2 (05:15→18:49)
[2022-03-28 06:11] LABS: HEMATOCRIT 22.9 % (36.0-47.0); HEMOGLOBIN 7.6 g/dl (12.0-15.5); MEAN CORPUSCULAR HEMOGLOBIN 32.1 pg (27.0-33.0); MEAN CORPUSCULAR HGB CONC 33.2 g/dl (32.0-36.5); MEAN CORPUSCULAR VOLUME 96.6 fl (80.0-96.0); PLATELET COUNT, AUTOMATED 124 10^3/uL (150-450); RED BLOOD COUNT 2.37 10^6/uL (4.00-5.40); WHITE BLOOD COUNT 11.3 10^3/uL (4.0-10.0)
[2022-03-28 06:44] LABS: BLOOD UREA NITROGEN 10 MG/DL (7-18); CALCIUM LEVEL 8.1 MG/DL (8.5-10.1); CARBON DIOXIDE LEVEL 23 MEQ/L (21-32); CHLORIDE LEVEL 105 MEQ/L (98-107); CREATININE FOR GFR 0.77 MG/DL (0.55-1.30); GLOMERULAR FILTRATION RATE > 60.0 (>51); GLUCOSE, FASTING 102 MG/DL (70-100); POTASSIUM SERUM 3.2 MEQ/L (3.5-5.1); SODIUM LEVEL 137 MEQ/L (136-145)
[2022-03-28] MEDS: SYMBICORT 160/4.5MCG INHALER 6GM INH SCH ×3 (07:43→21:49)
[2022-03-28] MEDS: PREGABALIN 50 MG CAP (LYRICA) PO SCH ×2 (08:47→21:06)
[2022-03-28] MEDS: FLUCONAZOLE 50MG TABLET PO SCH (08:47)
[2022-03-28] MEDS: APIXABAN 5 MG TAB (ELIQUIS) PO SCH ×2 (08:47→21:06)
[2022-03-28] MEDS: NICOTINE 21MG/24HR 1 EA TRANSDERMAL TD SCH (08:47)
[2022-03-28] MEDS: MORPHINE 15 MG SA TAB PO SCH ×2 (08:52→21:07)
[2022-03-28] MEDS: LORazepam 1 MG TAB PO PRN ×2 (09:00→21:52)
[2022-03-28 10:00] VITALS: BP 105/73
[2022-03-28] MEDS ORDERED: POTASSIUM CHLORIDE 10MEQ SR TABLET PO ONE (12:00)
[2022-03-28] MEDS: oxyCODONE 5MG TAB PO PRN ×2 (12:50→17:56)
[2022-03-28] MEDS: SODIUM CHLORIDE 0.9% INJ 10 ML SYR IV PRN (13:19)
[2022-03-28 13:33] LABS: HEMATOCRIT 23.9 % (36.0-47.0)
[2022-03-28 14:00] VITALS: BP 106/72
[2022-03-28 18:00] VITALS: BP 126/95
[2022-03-28] MEDS: NYSTATIN 500,000 U/5 ML SUSP UDC SS SCH ×3 (18:00→23:05)
[2022-03-28] MEDS: ONDANSETRON 4MG TAB PO PRN (18:04)
[2022-03-28 22:00] VITALS: BP 106/74
[2022-03-28 23:37] LABS: PERCENT SATURATION 15.9 % (13.2-45.0)
[2022-03-29] MEDS: HYDROMORPHONE HCL 0.5 MG/ 0.5 ML SYRINGE (J1170 PER 1) IV PRN ×2 (01:35→11:38)
[2022-03-29 02:00] VITALS: BP 105/73
[2022-03-29 02:28] LABS: FOLATE 5.6 NG/ML (>5.4)
[2022-03-29] MEDS: SODIUM CHLORIDE 0.9% INJ 10 ML SYR IV SCH ×2 (04:59→17:09)
[2022-03-29 05:14] LABS: HEMATOCRIT 22.8 % (36.0-47.0); HEMOGLOBIN 7.3 g/dl (12.0-15.5); MEAN CORPUSCULAR HEMOGLOBIN 31.2 pg (27.0-33.0); MEAN CORPUSCULAR VOLUME 97.4 fl (80.0-96.0); PLATELET COUNT, AUTOMATED 121 10^3/uL (150-450); RED BLOOD COUNT 2.34 10^6/uL (4.00-5.40); WHITE BLOOD COUNT 10.9 10^3/uL (4.0-10.0)
[2022-03-29 05:38] LABS: BLOOD UREA NITROGEN 9 MG/DL (7-18); CALCIUM LEVEL 7.8 MG/DL (8.5-10.1); CARBON DIOXIDE LEVEL 24 MEQ/L (21-32); CHLORIDE LEVEL 107 MEQ/L (98-107); CREATININE FOR GFR 0.76 MG/DL (0.55-1.30); GLOMERULAR FILTRATION RATE > 60.0 (>51); GLUCOSE, FASTING 107 MG/DL (70-100); MAGNESIUM LEVEL 1.5 MG/DL (1.8-2.4); PHOSPHORUS LEVEL 3.1 MG/DL (2.5-4.9); POTASSIUM SERUM 3.7 MEQ/L (3.5-5.1); SODIUM LEVEL 137 MEQ/L (136-145)
[2022-03-29 06:00] VITALS: BP 105/73
[2022-03-29] MEDS: SENNA 8.6 MG TAB (SENOKOT) PO PRN (06:12)
[2022-03-29] MEDS: SYMBICORT 160/4.5MCG INHALER 6GM INH SCH ×2 (07:46→20:02)
[2022-03-29] MEDS: MORPHINE 15 MG SA TAB PO SCH ×2 (09:40→21:32)
[2022-03-29] MEDS: PREGABALIN 50 MG CAP (LYRICA) PO SCH ×2 (09:41→21:31)
[2022-03-29] MEDS: APIXABAN 5 MG TAB (ELIQUIS) PO SCH (09:41)
[2022-03-29] MEDS: NICOTINE 21MG/24HR 1 EA TRANSDERMAL TD SCH (09:41)
[2022-03-29] MEDS: MAG SULF 1GM/100ML (MAG RUN) 1 GM in IV 1 EA IV SCH ×2 (09:41→11:06)
[2022-03-29] MEDS: LORazepam 1 MG TAB PO PRN ×2 (09:41→22:24)
[2022-03-29 14:00] VITALS: BP 105/73
[2022-03-29] MEDS: oxyCODONE 5MG TAB PO PRN (14:15)
[2022-03-29] MEDS ORDERED: HEPARIN SOD (PORCINE) 5000UNITS/ML 1ML VIAL/SYRINGE IV PRN (17:15)
[2022-03-29] MEDS ORDERED: HEPARIN SOD (PORCINE) 5000UNITS/ML 1ML VIAL/SYRINGE IV ONE (17:15)
[2022-03-29 17:29] LABS: HEMATOCRIT 21.9 % (36.0-47.0); HEMOGLOBIN 7.2 g/dl (12.0-15.5)
[2022-03-29 18:00] VITALS: BP 108/76
[2022-03-29] MEDS ORDERED: HEPARIN DRIP 25,000 UNITS in IV 1 EA IV SCH (21:00)
[2022-03-29 22:28] VITALS: BP 120/91
[2022-03-30 02:22] VITALS: BP 120/89
[2022-03-30] MEDS: SODIUM CHLORIDE 0.9% INJ 10 ML SYR IV SCH ×2 (05:00→18:46)
[2022-03-30] MEDS: HYDROMORPHONE HCL 0.5 MG/ 0.5 ML SYRINGE (J1170 PER 1) IV PRN ×4 (05:00→16:08)
[2022-03-30 05:20] LABS: HEMATOCRIT 22.7 % (36.0-47.0); HEMOGLOBIN 7.6 g/dl (12.0-15.5); MEAN CORPUSCULAR HEMOGLOBIN 32.9 pg (27.0-33.0); MEAN CORPUSCULAR HGB CONC 33.5 g/dl (32.0-36.5); MEAN CORPUSCULAR VOLUME 98.3 fl (80.0-96.0); PLATELET COUNT, AUTOMATED 145 10^3/uL (150-450); RED BLOOD COUNT 2.31 10^6/uL (4.00-5.40); WHITE BLOOD COUNT 11.1 10^3/uL (4.0-10.0)
[2022-03-30 05:38] VITALS: BP 121/89
[2022-03-30 05:42] LABS: BLOOD UREA NITROGEN 9 MG/DL (7-18); CALCIUM LEVEL 7.8 MG/DL (8.5-10.1); CARBON DIOXIDE LEVEL 25 MEQ/L (21-32); CHLORIDE LEVEL 105 MEQ/L (98-107); CREATININE FOR GFR 0.81 MG/DL (0.55-1.30); GLOMERULAR FILTRATION RATE > 60.0 (>51); GLUCOSE, FASTING 103 MG/DL (70-100); MAGNESIUM LEVEL 1.8 MG/DL (1.8-2.4); PHOSPHORUS LEVEL 2.9 MG/DL (2.5-4.9); POTASSIUM SERUM 3.8 MEQ/L (3.5-5.1); SODIUM LEVEL 137 MEQ/L (136-145)
[2022-03-30] MEDS: SYMBICORT 160/4.5MCG INHALER 6GM INH SCH ×2 (07:14→19:43)
[2022-03-30] MEDS: MORPHINE 15 MG SA TAB PO SCH ×2 (08:01→21:40)
[2022-03-30] MEDS: PREGABALIN 50 MG CAP (LYRICA) PO SCH ×2 (08:01→21:38)
[2022-03-30] MEDS: NICOTINE 21MG/24HR 1 EA TRANSDERMAL TD SCH (08:01)
[2022-03-30 10:00] VITALS: BP 119/87
[2022-03-30 14:00] VITALS: BP_SYST 114; BP_SYST 123; BP_DIAS 62; BP_DIAS 87
[2022-03-30] MEDS: oxyCODONE 5MG TAB PO PRN (18:47)
[2022-03-30 20:18] LABS: LDH, BODY FLUID 204 U/L (NOT ESTABLISHED); SOURCE, BODY FLUID GLUCOSE THORACENTESIS; SOURCE, BODY FLUID LDH THORACENTESIS; SOURCE, BODY FLUID TOT PROTEIN THORACENTESIS; TOTAL PROTEIN, BODY FLUID 1.3 G/DL (NOT ESTABLISHED)
[2022-03-30] MEDS: APIXABAN 5 MG TAB (ELIQUIS) PO SCH (21:38)
[2022-03-30] MEDS: SENNA 8.6 MG TAB (SENOKOT) PO PRN (21:40)
[2022-03-30 22:00] VITALS: BP 123/87
[2022-03-30] MEDS: LORazepam 1 MG TAB PO PRN (23:04)
[2022-03-31] MEDS ORDERED: BENZONATATE 100MG CAPSULE PO PRN (00:10)
[2022-03-31] MEDS ORDERED: carisoprodoL 350 MG TAB PO ONE (01:00)
[2022-03-31 02:00] VITALS: BP 118/83
[2022-03-31 05:26] VITALS: BP 117/87
[2022-03-31] MEDS: SODIUM CHLORIDE 0.9% INJ 10 ML SYR IV SCH ×2 (05:39→17:52)
[2022-03-31] MEDS: oxyCODONE 5MG TAB PO PRN ×4 (05:39→18:40)
[2022-03-31 06:00] LABS: HEMATOCRIT 24.2 % (36.0-47.0); HEMOGLOBIN 7.8 g/dl (12.0-15.5); MEAN CORPUSCULAR HGB CONC 32.2 g/dl (32.0-36.5); MEAN CORPUSCULAR VOLUME 99.2 fl (80.0-96.0); PLATELET COUNT, AUTOMATED 125 10^3/uL (150-450); RED BLOOD COUNT 2.44 10^6/uL (4.00-5.40)
[2022-03-31 06:26] LABS: BLOOD UREA NITROGEN 10 MG/DL (7-18); CALCIUM LEVEL 7.6 MG/DL (8.5-10.1); CARBON DIOXIDE LEVEL 23 MEQ/L (21-32); CHLORIDE LEVEL 104 MEQ/L (98-107); CREATININE FOR GFR 0.77 MG/DL (0.55-1.30); GLOMERULAR FILTRATION RATE > 60.0 (>51); GLUCOSE, FASTING 105 MG/DL (70-100); MAGNESIUM LEVEL 1.7 MG/DL (1.8-2.4); PHOSPHORUS LEVEL 3.3 MG/DL (2.5-4.9); POTASSIUM SERUM 3.7 MEQ/L (3.5-5.1); SODIUM LEVEL 137 MEQ/L (136-145)
[2022-03-31 06:38] LABS: CK-MB VALUE MASS 4.5 NG/ML (<3.6); MB/CK RELATIVE INDEX 3.31 (< OR =4)
[2022-03-31] MEDS: SYMBICORT 160/4.5MCG INHALER 6GM INH SCH ×2 (07:46→19:25)
[2022-03-31] MEDS: APIXABAN 5 MG TAB (ELIQUIS) PO SCH ×2 (09:07→20:25)
[2022-03-31] MEDS: MORPHINE 15 MG SA TAB PO SCH ×2 (09:07→20:26)
[2022-03-31] MEDS: PREGABALIN 50 MG CAP (LYRICA) PO SCH ×2 (09:07→20:25)
[2022-03-31] MEDS: NICOTINE 21MG/24HR 1 EA TRANSDERMAL TD SCH (09:08)
[2022-03-31] MEDS: MAG SULF 1GM/100ML (MAG RUN) 1 GM in IV 1 EA IV SCH ×2 (09:10→11:31)
[2022-03-31] MEDS ORDERED: ASPIRIN 325 MG TAB PO ONE (09:30)
[2022-03-31 10:00] VITALS: BP 120/87
[2022-03-31] MEDS ORDERED: ISOVUE-370 76% 100ML VIAL As Ordered ONE (10:09)
[2022-03-31] MEDS: HYDROMORPHONE HCL 0.5 MG/ 0.5 ML SYRINGE (J1170 PER 1) IV PRN (10:43)
[2022-03-31] MEDS: LevoFLOXacin 750 MG TABLET PO SCH (13:34)
[2022-03-31 14:00] VITALS: BP 117/81
[2022-03-31] MEDS: SENNA 8.6 MG TAB (SENOKOT) PO PRN (15:09)
[2022-03-31 16:56] LABS: ALBUMIN 1.6 GM/DL (3.2-5.2); BILIRUBIN,DIRECT 0.3 MG/DL (0.0-0.2); BILIRUBIN,TOTAL 0.5 MG/DL (0.2-1.0); TOTAL PROTEIN 4.2 GM/DL (6.4-8.2)
[2022-03-31] MEDS: ONDANSETRON 4MG 2ML VIAL IV PRN (17:51)
[2022-03-31] MEDS ORDERED: HYDROMORPHONE HCL 0.5 MG/ 0.5 ML SYRINGE (J1170 PER 1) IV PRN (18:10)
[2022-03-31] MEDS ORDERED: ATORVASTATIN 20 MG TAB PO ONE (18:30)
[2022-03-31] MEDS: PANTOPRAZOLE 40MG TAB (PROTONIX) PO SCH (18:30)
[2022-03-31 19:07] LABS: CHOLESTEROL RISK RATIO 3.7 (<5)
[2022-03-31 20:48] VITALS: BP 127/80
[2022-03-31] MEDS: SODIUM CHLORIDE 0.9% INJ 10 ML SYR IV PRN (22:30)
[2022-03-31] MEDS: LORazepam 1 MG TAB PO PRN (22:30)
[2022-04-01] VITALS: BP 122/73
[2022-04-01] MEDS: oxyCODONE 5MG TAB PO PRN ×3 (02:16→12:36)
[2022-04-01] MEDS: LevoFLOXacin 750 MG TABLET PO SCH (05:49)
[2022-04-01] MEDS: SODIUM CHLORIDE 0.9% INJ 10 ML SYR IV SCH ×2 (05:50→18:03)
[2022-04-01 06:00] VITALS: BP 121/77
[2022-04-01] MEDS: ONDANSETRON 4MG 2ML VIAL IV PRN ×2 (06:20→21:08)
[2022-04-01 06:27] LABS: HEMATOCRIT 22.7 % (36.0-47.0); HEMOGLOBIN 7.2 g/dl (12.0-15.5); MEAN CORPUSCULAR HEMOGLOBIN 31.3 pg (27.0-33.0); MEAN CORPUSCULAR HGB CONC 31.7 g/dl (32.0-36.5); MEAN CORPUSCULAR VOLUME 98.7 fl (80.0-96.0); PLATELET COUNT, AUTOMATED 123 10^3/uL (150-450); WHITE BLOOD COUNT 8.9 10^3/uL (4.0-10.0)
[2022-04-01 06:48] LABS: MAGNESIUM LEVEL 1.9 MG/DL (1.8-2.4); PHOSPHORUS LEVEL 3.6 MG/DL (2.5-4.9)
[2022-04-01 06:50] LABS: ALBUMIN 1.5 GM/DL (3.2-5.2); ALT/SGPT 51 U/L (12-78); BILIRUBIN,TOTAL 0.5 MG/DL (0.2-1.0); BLOOD UREA NITROGEN 12 MG/DL (7-18); CALCIUM LEVEL 7.8 MG/DL (8.5-10.1); CARBON DIOXIDE LEVEL 26 MEQ/L (21-32); CHLORIDE LEVEL 104 MEQ/L (98-107); GLOMERULAR FILTRATION RATE > 60.0 (>51); GLUCOSE, FASTING 93 MG/DL (70-100); POTASSIUM SERUM 3.6 MEQ/L (3.5-5.1); SODIUM LEVEL 137 MEQ/L (136-145); TOTAL PROTEIN 3.9 GM/DL (6.4-8.2)
[2022-04-01] MEDS: SYMBICORT 160/4.5MCG INHALER 6GM INH SCH ×2 (07:03→19:14)
[2022-04-01] MEDS: APIXABAN 5 MG TAB (ELIQUIS) PO SCH ×2 (09:26→21:16)
[2022-04-01] MEDS: MORPHINE 15 MG SA TAB PO SCH ×2 (09:26→21:09)
[2022-04-01] MEDS: LORazepam 1 MG TAB PO PRN (09:26)
[2022-04-01] MEDS: NICOTINE 21MG/24HR 1 EA TRANSDERMAL TD SCH (09:27)
[2022-04-01 10:00] VITALS: BP 118/70
[2022-04-01] MEDS: OYSTER SHELL CALCIUM 500 MG TAB PO SCH (10:41)
[2022-04-01] MEDS: PANTOPRAZOLE 40MG TAB (PROTONIX) PO SCH (10:41)
[2022-04-01] MEDS: METOPROLOL TART 12.5 MG PER 1/2 TAB PO SCH (10:41)
[2022-04-01] MEDS: PREGABALIN 50 MG CAP (LYRICA) PO SCH ×2 (10:41→21:09)
[2022-04-01 13:36] LABS: PH BODY FLUID 7.617 UNITS (NOT ESTABLISHED); SOURCE, BODY FLUID pH PLEURAL
[2022-04-01 13:39] LABS: APPEARANCE, BODY FLUID CLEAR (CLEAR); PLEURAL FL COLOR YELLOW (COLORLESS); SOURCE, BODY FLUID PLEURAL
[2022-04-01] MEDS: SODIUM CHLORIDE 0.9% INJ 10 ML SYR IV PRN (13:47)
[2022-04-01] MEDS: SENNA 8.6 MG TAB (SENOKOT) PO PRN (13:50)
[2022-04-01 14:00] VITALS: BP 98/69
[2022-04-01] MEDS: SENNA 8.6 MG TAB (SENOKOT) PO SCH ×2 (14:00→21:09)
[2022-04-01] MEDS ORDERED: HYDROMORPHONE HCL 0.5 MG/ 0.5 ML SYRINGE (J1170 PER 1) IV PRN (14:00)
[2022-04-01 18:00] VITALS: BP 99/68
[2022-04-01 21:17] VITALS: BP 102/71
[2022-04-01] MEDS: LORazepam 1 MG TAB PO SCH (22:05)
[2022-04-01] MEDS ORDERED: NALOXONE INJ 0.4MG/1ML VIAL (J2310 PER 1MG) IV PRN (22:55)
[2022-04-01] MEDS ORDERED: DEXTROMETHORPHAN 60MG/10ML SUSP 90ML BTL(DELSYM) PO PRN (23:20)
[2022-04-01] MEDS ORDERED: FLUTICASONE PROP 0.05% NASAL SPRAY 16 GM (FLONASE) NARES PRN (23:25)
[2022-04-01] MEDS ORDERED: CEPACOL LOZENGE PO PRN (23:25)
[2022-04-02] VITALS (14 sets, daily range): BP systolic 97–110; BP diastolic 68–76
[2022-04-02] MEDS: oxyCODONE 5MG TAB PO PRN ×3 (04:33→21:54)
[2022-04-02] MEDS: LevoFLOXacin 750 MG TABLET PO SCH (05:36)
[2022-04-02] MEDS: SODIUM CHLORIDE 0.9% INJ 10 ML SYR IV SCH ×2 (05:37→17:50)
[2022-04-02 05:58] LABS: HEMATOCRIT 21.8 % (36.0-47.0); MEAN CORPUSCULAR HEMOGLOBIN 31.5 pg (27.0-33.0); MEAN CORPUSCULAR HGB CONC 31.7 g/dl (32.0-36.5); MEAN CORPUSCULAR VOLUME 99.5 fl (80.0-96.0); PLATELET COUNT, AUTOMATED 142 10^3/uL (150-450); RED BLOOD COUNT 2.19 10^6/uL (4.00-5.40); WHITE BLOOD COUNT 6.7 10^3/uL (4.0-10.0)
[2022-04-02 06:07] LABS: HEMOGLOBIN 6.9 g/dl (12.0-15.5)
[2022-04-02 06:21] LABS: MAGNESIUM LEVEL 1.9 MG/DL (1.8-2.4); PHOSPHORUS LEVEL 3.8 MG/DL (2.5-4.9)
[2022-04-02 06:28] LABS: BLOOD UREA NITROGEN 14 MG/DL (7-18); CALCIUM LEVEL 7.8 MG/DL (8.5-10.1); CARBON DIOXIDE LEVEL 24 MEQ/L (21-32); CHLORIDE LEVEL 106 MEQ/L (98-107); CREATININE FOR GFR 0.95 MG/DL (0.55-1.30); GLOMERULAR FILTRATION RATE > 60.0 (>51); GLUCOSE, FASTING 109 MG/DL (70-100); POTASSIUM SERUM 3.5 MEQ/L (3.5-5.1); SODIUM LEVEL 140 MEQ/L (136-145)
[2022-04-02] MEDS: SYMBICORT 160/4.5MCG INHALER 6GM INH SCH ×2 (07:21→19:23)
[2022-04-02] MEDS: NICOTINE 21MG/24HR 1 EA TRANSDERMAL TD SCH (08:06)
[2022-04-02] MEDS: APIXABAN 5 MG TAB (ELIQUIS) PO SCH ×2 (08:07→20:55)
[2022-04-02] MEDS: MORPHINE 15 MG SA TAB PO SCH ×2 (08:07→20:57)
[2022-04-02] MEDS: SENNA 8.6 MG TAB (SENOKOT) PO SCH ×2 (08:07→20:55)
[2022-04-02] MEDS: SODIUM CHLORIDE 0.9% INJ 10 ML SYR IV PRN (08:18)
[2022-04-02] MEDS: METOPROLOL TART 12.5 MG PER 1/2 TAB PO SCH (09:43)
[2022-04-02] MEDS: PANTOPRAZOLE 40MG TAB (PROTONIX) PO SCH (09:44)
[2022-04-02] MEDS: OYSTER SHELL CALCIUM 500 MG TAB PO SCH (09:44)
[2022-04-02] MEDS: PREGABALIN 50 MG CAP (LYRICA) PO SCH ×2 (09:44→20:55)
[2022-04-02] MEDS: LORazepam 1 MG TAB PO SCH ×2 (09:48→20:55)
[2022-04-02] MEDS ORDERED: POTASSIUM CHLORIDE 10MEQ SR TABLET PO ONE (11:30)
[2022-04-02] MEDS ORDERED: HYDROMORPHONE HCL 0.5 MG/ 0.5 ML SYRINGE (J1170 PER 1) IV PRN (16:00)
[2022-04-02 18:44] LABS: HEMATOCRIT 33.6 % (36.0-47.0); HEMOGLOBIN 11.4 g/dl (12.0-15.5)
[2022-04-03 02:00] VITALS: BP 108/75
[2022-04-03] MEDS: oxyCODONE 5MG TAB PO PRN ×3 (03:41→17:58)
[2022-04-03] MEDS: LevoFLOXacin 750 MG TABLET PO SCH (05:48)
[2022-04-03] MEDS: SODIUM CHLORIDE 0.9% INJ 10 ML SYR IV SCH ×2 (05:49→18:40)
[2022-04-03 05:59] LABS: HEMATOCRIT 34.2 % (36.0-47.0); HEMOGLOBIN 11.3 g/dl (12.0-15.5); MEAN CORPUSCULAR HEMOGLOBIN 31.9 pg (27.0-33.0); MEAN CORPUSCULAR VOLUME 96.6 fl (80.0-96.0); PLATELET COUNT, AUTOMATED 131 10^3/uL (150-450); RED BLOOD COUNT 3.54 10^6/uL (4.00-5.40); WHITE BLOOD COUNT 7.2 10^3/uL (4.0-10.0)
[2022-04-03 06:00] VITALS: BP 109/76
[2022-04-03 06:21] LABS: CALCIUM LEVEL 7.8 MG/DL (8.5-10.1); CREATININE FOR GFR 1.03 MG/DL (0.55-1.30); GLOMERULAR FILTRATION RATE 59.9 (>51); MAGNESIUM LEVEL 1.7 MG/DL (1.8-2.4); PHOSPHORUS LEVEL 4.1 MG/DL (2.5-4.9)
[2022-04-03 06:25] LABS: ALBUMIN 1.5 GM/DL (3.2-5.2); ALT/SGPT 43 U/L (12-78); BILIRUBIN,DIRECT 0.4 MG/DL (0.0-0.2); BILIRUBIN,TOTAL 0.7 MG/DL (0.2-1.0); TOTAL PROTEIN 4.1 GM/DL (6.4-8.2)
[2022-04-03] MEDS: SYMBICORT 160/4.5MCG INHALER 6GM INH SCH ×2 (07:45→19:37)
[2022-04-03] MEDS: ONDANSETRON 4MG 2ML VIAL IV PRN (08:39)
[2022-04-03] MEDS: NICOTINE 21MG/24HR 1 EA TRANSDERMAL TD SCH (08:42)
[2022-04-03] MEDS: MORPHINE 15 MG SA TAB PO SCH ×2 (08:44→21:06)
[2022-04-03] MEDS: METOPROLOL TART 12.5 MG PER 1/2 TAB PO SCH (08:45)
[2022-04-03] MEDS: APIXABAN 5 MG TAB (ELIQUIS) PO SCH ×2 (08:45→21:04)
[2022-04-03 10:00] VITALS: BP 105/75
[2022-04-03] MEDS: PREGABALIN 50 MG CAP (LYRICA) PO SCH ×2 (10:25→21:04)
[2022-04-03] MEDS: PANTOPRAZOLE 40MG TAB (PROTONIX) PO SCH (10:25)
[2022-04-03] MEDS: OYSTER SHELL CALCIUM 500 MG TAB PO SCH (10:25)
[2022-04-03] MEDS: LORazepam 1 MG TAB PO SCH ×2 (10:25→21:53)
[2022-04-03] MEDS: SENNA 8.6 MG TAB (SENOKOT) PO SCH ×2 (10:26→21:00)
[2022-04-03] MEDS: FUROSEMIDE 20 MG TAB PO SCH (11:36)
[2022-04-03 11:51] LABS: HEPATITIS B SURFACE ANTIGEN NEGATIVE (NEGATIVE)
[2022-04-03 11:55] LABS: HEPATITIS C VIRUS ABY INDEX 0.1 INDEX (<0.8)
[2022-04-03 11:56] LABS: HEPATITIS B CORE ANTIBODY IGM NEGATIVE (NEGATIVE)
[2022-04-03 14:00] VITALS: BP 104/74
[2022-04-03] MEDS ORDERED: MORPHINE 15 MG SA TAB PO SCH (16:00)
[2022-04-03 18:00] VITALS: BP 103/73
[2022-04-03] MEDS ORDERED: oxyCODONE 10 MG CR TAB PO SCH (21:00)
[2022-04-03 22:00] VITALS: BP 121/77
[2022-04-04 02:00] VITALS: BP 116/69
[2022-04-04] MEDS: LevoFLOXacin 750 MG TABLET PO SCH (05:27)
[2022-04-04] MEDS: SODIUM CHLORIDE 0.9% INJ 10 ML SYR IV SCH ×2 (05:28→16:55)
[2022-04-04] MEDS: oxyCODONE 5MG TAB PO PRN ×3 (05:29→23:50)
[2022-04-04 05:46] LABS: HEMATOCRIT 32.2 % (36.0-47.0); MEAN CORPUSCULAR HEMOGLOBIN 33.1 pg (27.0-33.0); MEAN CORPUSCULAR HGB CONC 34.2 g/dl (32.0-36.5); PLATELET COUNT, AUTOMATED 130 10^3/uL (150-450); RED BLOOD COUNT 3.32 10^6/uL (4.00-5.40); WHITE BLOOD COUNT 6.8 10^3/uL (4.0-10.0)
[2022-04-04 06:00] VITALS: BP 117/77
[2022-04-04 06:06] LABS: CREATININE FOR GFR 1.19 MG/DL (0.55-1.30); GLOMERULAR FILTRATION RATE 50.7 (>51); MAGNESIUM LEVEL 1.6 MG/DL (1.8-2.4); PHOSPHORUS LEVEL 4.4 MG/DL (2.5-4.9); POTASSIUM SERUM 3.7 MEQ/L (3.5-5.1)
[2022-04-04] MEDS: COMBIVENT RESPIMAT 100-20MCG INHALER 4GM INH PRN ×2 (07:05→19:19)
[2022-04-04] MEDS: SYMBICORT 160/4.5MCG INHALER 6GM INH SCH ×2 (07:44→19:19)
[2022-04-04] MEDS ORDERED: MAGNESIUM OXIDE 400MG TAB (MAG-OX) PO ONE (08:00)
[2022-04-04] MEDS: NICOTINE 21MG/24HR 1 EA TRANSDERMAL TD SCH (08:53)
[2022-04-04] MEDS: ONDANSETRON 4MG 2ML VIAL IV PRN (08:54)
[2022-04-04] MEDS: MORPHINE 15 MG SA TAB PO SCH ×3 (08:56→20:43)
[2022-04-04] MEDS: FUROSEMIDE 20 MG TAB PO SCH (08:57)
[2022-04-04] MEDS: METOPROLOL TART 12.5 MG PER 1/2 TAB PO SCH (08:57)
[2022-04-04] MEDS: APIXABAN 5 MG TAB (ELIQUIS) PO SCH ×2 (08:57→20:44)
[2022-04-04] MEDS: SENNA 8.6 MG TAB (SENOKOT) PO SCH ×2 (09:00→20:45)
[2022-04-04] MEDS: PANTOPRAZOLE 40MG TAB (PROTONIX) PO SCH (09:57)
[2022-04-04] MEDS: PREGABALIN 50 MG CAP (LYRICA) PO SCH ×2 (09:57→20:44)
[2022-04-04] MEDS: OYSTER SHELL CALCIUM 500 MG TAB PO SCH (09:57)
[2022-04-04] MEDS: LORazepam 1 MG TAB PO SCH ×2 (09:58→21:57)
[2022-04-04 10:00] VITALS: BP 102/68
[2022-04-04] MEDS: ASPIRIN 81MG ENTERIC TABLET PO SCH (12:13)
[2022-04-05 05:33] VITALS: BP 103/70
[2022-04-05] MEDS: SODIUM CHLORIDE 0.9% INJ 10 ML SYR IV SCH ×2 (05:38→17:13)
[2022-04-05] MEDS: LevoFLOXacin 750 MG TABLET PO SCH (05:38)
[2022-04-05] MEDS: COMBIVENT RESPIMAT 100-20MCG INHALER 4GM INH PRN ×4 (05:39→23:42)
[2022-04-05] MEDS: oxyCODONE 5MG TAB PO PRN ×2 (05:54→16:34)
[2022-04-05 05:59] LABS: HEMATOCRIT 32.9 % (36.0-47.0); HEMOGLOBIN 10.9 g/dl (12.0-15.5); MEAN CORPUSCULAR HEMOGLOBIN 32.1 pg (27.0-33.0); MEAN CORPUSCULAR HGB CONC 33.1 g/dl (32.0-36.5); MEAN CORPUSCULAR VOLUME 96.8 fl (80.0-96.0); PLATELET COUNT, AUTOMATED 133 10^3/uL (150-450); WHITE BLOOD COUNT 7.4 10^3/uL (4.0-10.0)
[2022-04-05 06:33] LABS: CALCIUM LEVEL 7.8 MG/DL (8.5-10.1); CREATININE FOR GFR 1.11 MG/DL (0.55-1.30); MAGNESIUM LEVEL 1.7 MG/DL (1.8-2.4); PHOSPHORUS LEVEL 4.3 MG/DL (2.5-4.9); POTASSIUM SERUM 3.5 MEQ/L (3.5-5.1)
[2022-04-05 07:19] VITALS: O2SAT 94
[2022-04-05] MEDS: SYMBICORT 160/4.5MCG INHALER 6GM INH SCH ×2 (07:19→19:55)
[2022-04-05] MEDS ORDERED: MAGNESIUM OXIDE 400MG TAB (MAG-OX) PO ONE (07:20)
[2022-04-05] MEDS: ASPIRIN 81MG ENTERIC TABLET PO SCH (08:30)
[2022-04-05] MEDS: PANTOPRAZOLE 40MG TAB (PROTONIX) PO SCH (08:30)
[2022-04-05] MEDS: METOPROLOL TART 12.5 MG PER 1/2 TAB PO SCH (08:34)
[2022-04-05] MEDS: LORazepam 1 MG TAB PO SCH ×2 (08:39→22:01)
[2022-04-05] MEDS: APIXABAN 5 MG TAB (ELIQUIS) PO SCH ×2 (08:40→21:30)
[2022-04-05] MEDS: SENNA 8.6 MG TAB (SENOKOT) PO SCH ×2 (08:40→21:30)
[2022-04-05] MEDS: OYSTER SHELL CALCIUM 500 MG TAB PO SCH (08:40)
[2022-04-05] MEDS: PREGABALIN 50 MG CAP (LYRICA) PO SCH ×2 (08:40→21:30)
[2022-04-05] MEDS: MORPHINE 15 MG SA TAB PO SCH ×3 (08:40→21:33)
[2022-04-05] MEDS: NICOTINE 21MG/24HR 1 EA TRANSDERMAL TD SCH (08:41)
[2022-04-05] MEDS ORDERED: FUROSEMIDE 20 MG TAB PO ONE (10:55)
[2022-04-05] MEDS: ONDANSETRON 4MG 2ML VIAL IV PRN ×2 (11:44→18:00)
[2022-04-05] MEDS: SODIUM CHLORIDE 0.9% INJ 10 ML SYR IV PRN (11:44)
[2022-04-05] MEDS ORDERED: LR 1,000 ML IV SCH (17:55)
[2022-04-06] MEDS: oxyCODONE 5MG TAB PO PRN ×3 (00:41→23:50)
[2022-04-06 05:35] VITALS: BP 105/71
[2022-04-06] MEDS: SODIUM CHLORIDE 0.9% INJ 10 ML SYR IV SCH ×2 (05:38→17:41)
[2022-04-06] MEDS ORDERED: LR 1,000 ML IV SCH (07:00)
[2022-04-06] MEDS: SYMBICORT 160/4.5MCG INHALER 6GM INH SCH ×2 (08:35→19:39)
[2022-04-06] MEDS: APIXABAN 5 MG TAB (ELIQUIS) PO SCH ×2 (10:12→20:12)
[2022-04-06] MEDS: LORazepam 1 MG TAB PO SCH ×2 (10:12→21:52)
[2022-04-06] MEDS: PREGABALIN 50 MG CAP (LYRICA) PO SCH ×2 (10:12→20:12)
[2022-04-06] MEDS: ASPIRIN 81MG ENTERIC TABLET PO SCH (10:12)
[2022-04-06] MEDS: SENNA 8.6 MG TAB (SENOKOT) PO SCH ×2 (10:12→20:02)
[2022-04-06] MEDS: NICOTINE 21MG/24HR 1 EA TRANSDERMAL TD SCH (10:13)
[2022-04-06] MEDS: FUROSEMIDE 20 MG TAB PO SCH (10:45)
[2022-04-06] MEDS: PANTOPRAZOLE 40MG TAB (PROTONIX) PO SCH (10:45)
[2022-04-06] MEDS: METOPROLOL TART 12.5 MG PER 1/2 TAB PO SCH (10:46)
[2022-04-06] MEDS: MORPHINE 15 MG SA TAB PO SCH ×3 (10:46→20:13)
[2022-04-06] MEDS: OYSTER SHELL CALCIUM 500 MG TAB PO SCH (10:47)
[2022-04-06] MEDS: ALBUTEROL SULFATE 2.5 MG/0.5 ML INH NEB SOLN NEB PRN ×2 (11:18→19:25)
[2022-04-06] MEDS: ONDANSETRON 4MG TAB PO PRN (14:25)
[2022-04-07] MEDS: ALBUTEROL SULFATE 2.5 MG/0.5 ML INH NEB SOLN NEB PRN ×2 (00:10→05:57)
[2022-04-07 05:43] VITALS: BP 100/64
[2022-04-07] MEDS: SODIUM CHLORIDE 0.9% INJ 10 ML SYR IV SCH ×2 (05:49→18:24)
[2022-04-07] MEDS: SYMBICORT 160/4.5MCG INHALER 6GM INH SCH ×2 (07:08→20:07)
[2022-04-07] MEDS: COMBIVENT RESPIMAT 100-20MCG INHALER 4GM INH PRN (07:08)
[2022-04-07] MEDS: SENNA 8.6 MG TAB (SENOKOT) PO SCH ×3 (09:00→21:43)
[2022-04-07] MEDS: NICOTINE 21MG/24HR 1 EA TRANSDERMAL TD SCH (09:28)
[2022-04-07] MEDS: MORPHINE 15 MG SA TAB PO SCH ×3 (09:28→21:44)
[2022-04-07] MEDS: OYSTER SHELL CALCIUM 500 MG TAB PO SCH (09:29)
[2022-04-07] MEDS: ASPIRIN 81MG ENTERIC TABLET PO SCH (09:30)
[2022-04-07] MEDS: PREGABALIN 50 MG CAP (LYRICA) PO SCH ×2 (09:30→21:43)
[2022-04-07] MEDS: FUROSEMIDE 20 MG TAB PO SCH (09:31)
[2022-04-07] MEDS: APIXABAN 5 MG TAB (ELIQUIS) PO SCH ×2 (09:32→21:43)
[2022-04-07] MEDS: PANTOPRAZOLE 40MG TAB (PROTONIX) PO SCH (09:32)
[2022-04-07] MEDS: METOPROLOL TART 12.5 MG PER 1/2 TAB PO SCH (09:32)
[2022-04-07] MEDS: LORazepam 1 MG TAB PO SCH ×2 (09:32→21:44)
[2022-04-07 14:34] VITALS: O2SAT 95
[2022-04-07] MEDS: ALBUTEROL SULFATE 2.5 MG/0.5 ML INH NEB SOLN INH PRN (14:34)
[2022-04-07] MEDS: oxyCODONE 5MG TAB PO PRN (18:24)
[2022-04-08] MEDS: ALBUTEROL SULFATE 2.5 MG/0.5 ML INH NEB SOLN INH PRN ×2 (03:56→07:18)
[2022-04-08] MEDS: SODIUM CHLORIDE 0.9% INJ 10 ML SYR IV PRN (05:43)
[2022-04-08 06:00] VITALS: BP 114/77
[2022-04-08] MEDS: SODIUM CHLORIDE 0.9% INJ 10 ML SYR IV SCH ×2 (06:06→18:00)
[2022-04-08] MEDS: COMBIVENT RESPIMAT 100-20MCG INHALER 4GM INH PRN (07:15)
[2022-04-08] MEDS: SYMBICORT 160/4.5MCG INHALER 6GM INH SCH ×2 (07:15→20:29)
[2022-04-08] MEDS: SENNA 8.6 MG TAB (SENOKOT) PO SCH ×2 (09:00→20:13)
[2022-04-08] MEDS: APIXABAN 5 MG TAB (ELIQUIS) PO SCH ×2 (09:18→22:13)
[2022-04-08] MEDS: METOPROLOL TART 12.5 MG PER 1/2 TAB PO SCH (09:19)
[2022-04-08] MEDS: MORPHINE 15 MG SA TAB PO SCH ×3 (09:20→19:10)
[2022-04-08] MEDS: NICOTINE 21MG/24HR 1 EA TRANSDERMAL TD SCH (09:20)
[2022-04-08] MEDS ORDERED: methylPREDNISolone 125MG 2ML VIAL IV ONE (10:00)
[2022-04-08] MEDS ORDERED: methylPREDNISolone 40MG 1ML VIAL IV ONE (10:00)
[2022-04-08] MEDS: LORazepam 1 MG TAB PO SCH ×2 (10:11→22:13)
[2022-04-08] MEDS: ASPIRIN 81MG ENTERIC TABLET PO SCH (10:12)
[2022-04-08] MEDS: PANTOPRAZOLE 40MG TAB (PROTONIX) PO SCH (10:12)
[2022-04-08] MEDS: OYSTER SHELL CALCIUM 500 MG TAB PO SCH (10:12)
[2022-04-08] MEDS: PREGABALIN 50 MG CAP (LYRICA) PO SCH ×2 (10:12→22:13)
[2022-04-08 10:22] VITALS: O2SAT 96
[2022-04-08] MEDS: IPRATROPIUM 0.02% SOLN 0.5MG 2.5ML NEB INH PRN ×3 (10:22→20:30)
[2022-04-08 13:57] VITALS: O2SAT 96
[2022-04-08] MEDS: oxyCODONE 5MG TAB PO PRN (14:07)
[2022-04-08] MEDS: ONDANSETRON 4MG 2ML VIAL IV PRN (15:42)
[2022-04-09] MEDS: oxyCODONE 5MG TAB PO PRN ×2 (01:25→18:18)
[2022-04-09] MEDS: IPRATROPIUM 0.02% SOLN 0.5MG 2.5ML NEB INH PRN ×4 (03:23→18:45)
[2022-04-09] MEDS: SODIUM CHLORIDE 0.9% INJ 10 ML SYR IV SCH ×2 (05:46→17:43)
[2022-04-09 05:49] VITALS: BP 120/76
[2022-04-09 07:15] VITALS: O2SAT 94
[2022-04-09] MEDS: SYMBICORT 160/4.5MCG INHALER 6GM INH SCH ×2 (07:15→18:45)
[2022-04-09] MEDS: MORPHINE 15 MG SA TAB PO SCH ×3 (10:01→20:15)
[2022-04-09] MEDS: METOPROLOL TART 12.5 MG PER 1/2 TAB PO SCH (10:01)
[2022-04-09] MEDS: SENNA 8.6 MG TAB (SENOKOT) PO SCH ×2 (10:02→19:57)
[2022-04-09] MEDS: APIXABAN 5 MG TAB (ELIQUIS) PO SCH ×2 (10:02→19:57)
[2022-04-09] MEDS: LORazepam 1 MG TAB PO SCH ×2 (10:02→22:13)
[2022-04-09] MEDS: NICOTINE 21MG/24HR 1 EA TRANSDERMAL TD SCH (10:02)
[2022-04-09] MEDS: ASPIRIN 81MG ENTERIC TABLET PO SCH (10:57)
[2022-04-09] MEDS: PREGABALIN 50 MG CAP (LYRICA) PO SCH ×2 (10:57→22:13)
[2022-04-09] MEDS: OYSTER SHELL CALCIUM 500 MG TAB PO SCH (10:58)
[2022-04-09] MEDS: PANTOPRAZOLE 40MG TAB (PROTONIX) PO SCH (10:58)
[2022-04-09] MEDS: predniSONE 20 MG TAB PO SCH (10:58)
[2022-04-09 12:07] VITALS: O2SAT 96
[2022-04-09 18:45] VITALS: O2SAT 93
[2022-04-10] MEDS: oxyCODONE 5MG TAB PO PRN (00:46)
[2022-04-10] MEDS: IPRATROPIUM 0.02% SOLN 0.5MG 2.5ML NEB INH PRN ×3 (00:46→13:16)
[2022-04-10 06:00] VITALS: BP 116/70
[2022-04-10] MEDS: SODIUM CHLORIDE 0.9% INJ 10 ML SYR IV SCH ×2 (06:02→18:37)
[2022-04-10] MEDS: SYMBICORT 160/4.5MCG INHALER 6GM INH SCH ×2 (07:43→19:30)
[2022-04-10] MEDS: ASPIRIN 81MG ENTERIC TABLET PO SCH (08:46)
[2022-04-10] MEDS: NICOTINE 21MG/24HR 1 EA TRANSDERMAL TD SCH (08:46)
[2022-04-10] MEDS: APIXABAN 5 MG TAB (ELIQUIS) PO SCH ×2 (08:46→20:49)
[2022-04-10] MEDS: PREGABALIN 50 MG CAP (LYRICA) PO SCH ×2 (08:46→22:01)
[2022-04-10] MEDS: PANTOPRAZOLE 40MG TAB (PROTONIX) PO SCH (08:47)
[2022-04-10] MEDS: predniSONE 20 MG TAB PO SCH (08:47)
[2022-04-10] MEDS: OYSTER SHELL CALCIUM 500 MG TAB PO SCH (08:47)
[2022-04-10] MEDS: SENNA 8.6 MG TAB (SENOKOT) PO SCH ×2 (08:47→20:50)
[2022-04-10] MEDS: METOPROLOL TART 12.5 MG PER 1/2 TAB PO SCH (08:48)
[2022-04-10] MEDS: MORPHINE 15 MG SA TAB PO SCH ×3 (09:47→21:33)
[2022-04-10] MEDS ORDERED: COMBIVENT RESPIMAT 100-20MCG INHALER 4GM INH PRN (10:00)
[2022-04-10] MEDS: LORazepam 1 MG TAB PO SCH ×2 (10:22→22:01)
[2022-04-10] MEDS ORDERED: IPRATROPIUM 0.5MG/ALBUTEROL 2.5MG INH SOL UD 3ML (DUONEB) NEB ONE (18:10)
[2022-04-10] MEDS: IPRATROPIUM 0.5MG/ALBUTEROL 2.5MG INH SOL UD 3ML (DUONEB) NEB SCH (18:12)
[2022-04-10 20:05] VITALS: BP 121/88
[2022-04-10] MEDS: guaiFENesin ER 600 MG TAB PO SCH (20:49)
[2022-04-11] MEDS: IPRATROPIUM 0.5MG/ALBUTEROL 2.5MG INH SOL UD 3ML (DUONEB) NEB SCH ×3 (00:14→19:36)
[2022-04-11 04:00] VITALS: BP 121/87
[2022-04-11] MEDS ORDERED: guaiFENesin DM LIQ 10ML UD PO PRN (05:35)
[2022-04-11] MEDS ORDERED: LEVALBUTEROL HFA 45MCG/ACT 15 GM INHALER INH PRN (05:35)
[2022-04-11] MEDS: SODIUM CHLORIDE 0.9% INJ 10 ML SYR IV SCH ×2 (05:36→17:57)
[2022-04-11 06:00] LABS: HEMATOCRIT 38.4 % (36.0-47.0); HEMOGLOBIN 12.4 g/dl (12.0-15.5); MEAN CORPUSCULAR HEMOGLOBIN 31.7 pg (27.0-33.0); MEAN CORPUSCULAR HGB CONC 32.3 g/dl (32.0-36.5); MEAN CORPUSCULAR VOLUME 98.2 fl (80.0-96.0); PLATELET COUNT, AUTOMATED 251 10^3/uL (150-450); RED BLOOD COUNT 3.91 10^6/uL (4.00-5.40); WHITE BLOOD COUNT 12.5 10^3/uL (4.0-10.0)
[2022-04-11 06:11] LABS: INR 1.34; PARTIAL THROMBOPLASTIN TIME 32.4 SECONDS (25.9-37.0)
[2022-04-11] MEDS: ONDANSETRON 4MG 2ML VIAL IV PRN ×2 (06:19→21:52)
[2022-04-11] MEDS: SODIUM CHLORIDE 0.9% INJ 10 ML SYR IV PRN ×3 (06:20→21:54)
[2022-04-11] MEDS: SYMBICORT 160/4.5MCG INHALER 6GM INH SCH ×2 (07:08→19:35)
[2022-04-11 07:38] LABS: CREATININE FOR GFR 1.24 MG/DL (0.55-1.30); GLOMERULAR FILTRATION RATE 48.4 (>51)
[2022-04-11 07:39] LABS: CALCIUM LEVEL 8.8 MG/DL (8.5-10.1); POTASSIUM SERUM 4.2 MEQ/L (3.5-5.1)
[2022-04-11] MEDS: APIXABAN 5 MG TAB (ELIQUIS) PO SCH ×2 (08:47→21:07)
[2022-04-11] MEDS: NICOTINE 21MG/24HR 1 EA TRANSDERMAL TD SCH (08:47)
[2022-04-11] MEDS: ASPIRIN 81MG ENTERIC TABLET PO SCH (08:47)
[2022-04-11] MEDS: guaiFENesin ER 600 MG TAB PO SCH ×2 (08:47→21:06)
[2022-04-11] MEDS: OYSTER SHELL CALCIUM 500 MG TAB PO SCH (08:47)
[2022-04-11] MEDS: predniSONE 20 MG TAB PO SCH (08:47)
[2022-04-11] MEDS: PANTOPRAZOLE 40MG TAB (PROTONIX) PO SCH (08:47)
[2022-04-11] MEDS: SENNA 8.6 MG TAB (SENOKOT) PO SCH ×2 (08:47→21:07)
[2022-04-11] MEDS: METOPROLOL TART 12.5 MG PER 1/2 TAB PO SCH (08:48)
[2022-04-11] MEDS: PREGABALIN 50 MG CAP (LYRICA) PO SCH ×2 (10:37→22:28)
[2022-04-11] MEDS: LORazepam 1 MG TAB PO SCH ×2 (10:37→22:28)
[2022-04-11] MEDS: MORPHINE 30 MG SA TAB PO SCH ×3 (10:39→21:53)
[2022-04-11] MEDS ORDERED: ISOVUE-370 76% 100ML VIAL As Ordered ONE (10:54)
[2022-04-11] MEDS: methylPREDNISolone 40MG 1ML VIAL IV SCH (21:07)
[2022-04-12] MEDS: IPRATROPIUM 0.5MG/ALBUTEROL 2.5MG INH SOL UD 3ML (DUONEB) NEB SCH ×6 (00:02→19:19)
[2022-04-12] MEDS: IPRATROPIUM 0.5MG/ALBUTEROL 2.5MG INH SOL UD 3ML (DUONEB) NEB PRN ×2 (02:32→20:27)
[2022-04-12] MEDS: oxyCODONE 5MG TAB PO PRN ×2 (04:25→13:47)
[2022-04-12 05:46] VITALS: BP 127/87
[2022-04-12] MEDS: SODIUM CHLORIDE 0.9% INJ 10 ML SYR IV SCH ×2 (06:00→17:56)
[2022-04-12 06:35] LABS: HEMATOCRIT 34.6 % (36.0-47.0); HEMOGLOBIN 11.3 g/dl (12.0-15.5); MEAN CORPUSCULAR HEMOGLOBIN 31.9 pg (27.0-33.0); MEAN CORPUSCULAR HGB CONC 32.7 g/dl (32.0-36.5); MEAN CORPUSCULAR VOLUME 97.7 fl (80.0-96.0); PLATELET COUNT, AUTOMATED 212 10^3/uL (150-450); RED BLOOD COUNT 3.54 10^6/uL (4.00-5.40); WHITE BLOOD COUNT 9.7 10^3/uL (4.0-10.0)
[2022-04-12 06:58] LABS: CALCIUM LEVEL 8.9 MG/DL (8.5-10.1); CREATININE FOR GFR 1.25 MG/DL (0.55-1.30); GLOMERULAR FILTRATION RATE 47.9 (>51)
[2022-04-12] MEDS: SYMBICORT 160/4.5MCG INHALER 6GM INH SCH ×2 (07:44→19:18)
[2022-04-12] MEDS: APIXABAN 5 MG TAB (ELIQUIS) PO SCH (09:14)
[2022-04-12] MEDS: methylPREDNISolone 40MG 1ML VIAL IV SCH ×2 (09:14→21:28)
[2022-04-12] MEDS: METOPROLOL TART 12.5 MG PER 1/2 TAB PO SCH (09:14)
[2022-04-12] MEDS: NICOTINE 21MG/24HR 1 EA TRANSDERMAL TD SCH (09:14)
[2022-04-12] MEDS: MORPHINE 30 MG SA TAB PO SCH ×3 (09:19→21:28)
[2022-04-12] MEDS: ONDANSETRON 4MG 2ML VIAL IV PRN (09:49)
[2022-04-12] MEDS: LORazepam 1 MG TAB PO SCH ×2 (10:24→22:07)
[2022-04-12] MEDS: PREGABALIN 50 MG CAP (LYRICA) PO SCH ×2 (10:25→22:07)
[2022-04-12] MEDS: OYSTER SHELL CALCIUM 500 MG TAB PO SCH (11:28)
[2022-04-12] MEDS: SENNA 8.6 MG TAB (SENOKOT) PO SCH ×2 (11:28→21:27)
[2022-04-12] MEDS: ASPIRIN 81MG ENTERIC TABLET PO SCH (11:28)
[2022-04-12] MEDS: guaiFENesin ER 600 MG TAB PO SCH ×2 (11:28→21:27)
[2022-04-12] MEDS: PANTOPRAZOLE 40MG TAB (PROTONIX) PO SCH (11:28)
[2022-04-12] MEDS: ENOXAPARIN 60MG/0.6ML SYRINGE (J1650 PER 10MG) SC SCH (21:27)
[2022-04-12] MEDS: SODIUM CHLORIDE 0.9% INJ 10 ML SYR IV PRN (21:29)
[2022-04-13] MEDS: IPRATROPIUM 0.5MG/ALBUTEROL 2.5MG INH SOL UD 3ML (DUONEB) NEB SCH ×7 (00:08→23:36)
[2022-04-13] MEDS: oxyCODONE 5MG TAB PO PRN ×3 (03:26→18:58)
[2022-04-13] MEDS: SODIUM CHLORIDE 0.9% INJ 10 ML SYR IV PRN ×2 (05:46→15:04)
[2022-04-13] MEDS: SODIUM CHLORIDE 0.9% INJ 10 ML SYR IV SCH ×2 (05:46→17:38)
[2022-04-13 06:00] VITALS: BP 114/89
[2022-04-13 06:01] LABS: HEMOGLOBIN 11.4 g/dl (12.0-15.5); MEAN CORPUSCULAR HEMOGLOBIN 31.5 pg (27.0-33.0); MEAN CORPUSCULAR HGB CONC 32.6 g/dl (32.0-36.5); MEAN CORPUSCULAR VOLUME 96.7 fl (80.0-96.0); PLATELET COUNT, AUTOMATED 219 10^3/uL (150-450); RED BLOOD COUNT 3.62 10^6/uL (4.00-5.40); WHITE BLOOD COUNT 10.8 10^3/uL (4.0-10.0)
[2022-04-13] MEDS: SYMBICORT 160/4.5MCG INHALER 6GM INH SCH ×2 (07:14→19:30)
[2022-04-13 07:22] LABS: CREATININE FOR GFR 1.29 MG/DL (0.55-1.30); GLOMERULAR FILTRATION RATE 46.2 (>51); POTASSIUM SERUM 4.2 MEQ/L (3.5-5.1)
[2022-04-13 07:23] LABS: CALCIUM LEVEL 8.9 MG/DL (8.5-10.1)
[2022-04-13] MEDS: NICOTINE 21MG/24HR 1 EA TRANSDERMAL TD SCH (08:58)
[2022-04-13] MEDS: methylPREDNISolone 40MG 1ML VIAL IV SCH ×2 (08:58→20:27)
[2022-04-13] MEDS: ENOXAPARIN 60MG/0.6ML SYRINGE (J1650 PER 10MG) SC SCH ×2 (08:59→20:27)
[2022-04-13] MEDS: ASPIRIN 81MG ENTERIC TABLET PO SCH (09:00)
[2022-04-13] MEDS: METOPROLOL TART 12.5 MG PER 1/2 TAB PO SCH (09:00)
[2022-04-13] MEDS: SENNA 8.6 MG TAB (SENOKOT) PO SCH ×2 (09:00→20:28)
[2022-04-13] MEDS: guaiFENesin ER 600 MG TAB PO SCH ×2 (09:01→20:28)
[2022-04-13] MEDS: MORPHINE 30 MG SA TAB PO SCH ×3 (09:01→20:37)
[2022-04-13] MEDS: PANTOPRAZOLE 40MG TAB (PROTONIX) PO SCH (09:01)
[2022-04-13] MEDS: OYSTER SHELL CALCIUM 500 MG TAB PO SCH (09:01)
[2022-04-13] MEDS: LORazepam 1 MG TAB PO SCH ×3 (10:17→22:19)
[2022-04-13] MEDS: PREGABALIN 50 MG CAP (LYRICA) PO SCH ×3 (10:18→22:19)
[2022-04-13] MEDS: FUROSEMIDE 20 MG TAB PO SCH (12:00)
[2022-04-13] MEDS: ONDANSETRON 4MG 2ML VIAL IV PRN (19:10)
[2022-04-14] MEDS: IPRATROPIUM 0.5MG/ALBUTEROL 2.5MG INH SOL UD 3ML (DUONEB) NEB SCH ×5 (04:19→20:42)
[2022-04-14] MEDS: SODIUM CHLORIDE 0.9% INJ 10 ML SYR IV SCH ×2 (05:02→18:28)
[2022-04-14] MEDS: SODIUM CHLORIDE 0.9% INJ 10 ML SYR IV PRN ×2 (05:03→09:32)
[2022-04-14] MEDS: oxyCODONE 5MG TAB PO PRN ×2 (05:04→11:13)
[2022-04-14 05:27] LABS: HEMATOCRIT 36.1 % (36.0-47.0); HEMOGLOBIN 11.7 g/dl (12.0-15.5); MEAN CORPUSCULAR HEMOGLOBIN 31.5 pg (27.0-33.0); MEAN CORPUSCULAR HGB CONC 32.4 g/dl (32.0-36.5); MEAN CORPUSCULAR VOLUME 97.3 fl (80.0-96.0); PLATELET COUNT, AUTOMATED 226 10^3/uL (150-450); RED BLOOD COUNT 3.71 10^6/uL (4.00-5.40); WHITE BLOOD COUNT 13.3 10^3/uL (4.0-10.0)
[2022-04-14 05:44] LABS: CALCIUM LEVEL 8.6 MG/DL (8.5-10.1); CREATININE FOR GFR 1.24 MG/DL (0.55-1.30); GLOMERULAR FILTRATION RATE 48.4 (>51); POTASSIUM SERUM 4.3 MEQ/L (3.5-5.1)
[2022-04-14 06:00] VITALS: BP 115/88
[2022-04-14] MEDS: SYMBICORT 160/4.5MCG INHALER 6GM INH SCH ×2 (07:25→20:37)
[2022-04-14] MEDS: SENNA 8.6 MG TAB (SENOKOT) PO SCH ×2 (09:00→21:00)
[2022-04-14] MEDS: dexameTHASONE 4 MG/ML 1ML VIAL (J1100 PER 1MG) IV SCH (09:27)
[2022-04-14] MEDS: ENOXAPARIN 60MG/0.6ML SYRINGE (J1650 PER 10MG) SC SCH ×2 (09:28→21:07)
[2022-04-14] MEDS: NICOTINE 21MG/24HR 1 EA TRANSDERMAL TD SCH (09:28)
[2022-04-14] MEDS: MORPHINE 30 MG SA TAB PO SCH ×3 (09:29→21:08)
[2022-04-14] MEDS: FUROSEMIDE 20 MG TAB PO SCH (09:30)
[2022-04-14] MEDS: OYSTER SHELL CALCIUM 500 MG TAB PO SCH (09:30)
[2022-04-14] MEDS: ASPIRIN 81MG ENTERIC TABLET PO SCH (09:30)
[2022-04-14] MEDS: PANTOPRAZOLE 40MG TAB (PROTONIX) PO SCH (09:31)
[2022-04-14] MEDS: METOPROLOL TART 12.5 MG PER 1/2 TAB PO SCH (09:37)
[2022-04-14] MEDS: LORazepam 1 MG TAB PO SCH ×2 (10:21→22:00)
[2022-04-14] MEDS: guaiFENesin ER 600 MG TAB PO SCH ×2 (10:21→21:07)
[2022-04-14] MEDS: PREGABALIN 50 MG CAP (LYRICA) PO SCH ×2 (10:22→22:00)
[2022-04-14] MEDS ORDERED: FUROSEMIDE 20 MG TAB PO ONE (10:40)
[2022-04-14] MEDS: ONDANSETRON 4MG 2ML VIAL IV PRN (19:23)
[2022-04-15] MEDS: IPRATROPIUM 0.5MG/ALBUTEROL 2.5MG INH SOL UD 3ML (DUONEB) NEB SCH ×6 (00:22→19:46)
[2022-04-15] MEDS: oxyCODONE 5MG TAB PO PRN (05:27)
[2022-04-15] MEDS: SODIUM CHLORIDE 0.9% INJ 10 ML SYR IV SCH ×2 (05:27→16:53)
[2022-04-15 05:57] VITALS: BP 122/87
[2022-04-15] MEDS: SYMBICORT 160/4.5MCG INHALER 6GM INH SCH ×2 (07:45→19:46)
[2022-04-15] MEDS: SENNA 8.6 MG TAB (SENOKOT) PO SCH ×2 (09:00→21:00)
[2022-04-15] MEDS: dexameTHASONE 4 MG/ML 1ML VIAL (J1100 PER 1MG) IV SCH (09:09)
[2022-04-15] MEDS: ONDANSETRON 4MG 2ML VIAL IV PRN ×2 (09:09→21:15)
[2022-04-15] MEDS: NICOTINE 21MG/24HR 1 EA TRANSDERMAL TD SCH (09:09)
[2022-04-15] MEDS: SODIUM CHLORIDE 0.9% INJ 10 ML SYR IV PRN (09:10)
[2022-04-15] MEDS: ENOXAPARIN 60MG/0.6ML SYRINGE (J1650 PER 10MG) SC SCH ×2 (09:11→21:11)
[2022-04-15] MEDS: MORPHINE 30 MG SA TAB PO SCH ×3 (09:17→21:10)
[2022-04-15] MEDS: PANTOPRAZOLE 40MG TAB (PROTONIX) PO SCH (09:18)
[2022-04-15] MEDS: ASPIRIN 81MG ENTERIC TABLET PO SCH (09:18)
[2022-04-15] MEDS: FUROSEMIDE 40 MG TAB PO SCH (09:18)
[2022-04-15] MEDS: METOPROLOL TART 12.5 MG PER 1/2 TAB PO SCH (09:19)
[2022-04-15 09:28] LABS: HEMATOCRIT 32.6 % (36.0-47.0); HEMOGLOBIN 10.6 g/dl (12.0-15.5); MEAN CORPUSCULAR HEMOGLOBIN 31.8 pg (27.0-33.0); MEAN CORPUSCULAR HGB CONC 32.5 g/dl (32.0-36.5); MEAN CORPUSCULAR VOLUME 97.9 fl (80.0-96.0); PLATELET COUNT, AUTOMATED 172 10^3/uL (150-450); RED BLOOD COUNT 3.33 10^6/uL (4.00-5.40); WHITE BLOOD COUNT 13.1 10^3/uL (4.0-10.0)
[2022-04-15 09:35] LABS: CALCIUM LEVEL 8.5 MG/DL (8.5-10.1); CREATININE FOR GFR 1.16 MG/DL (0.55-1.30); GLOMERULAR FILTRATION RATE 52.2 (>51); POTASSIUM SERUM 4.1 MEQ/L (3.5-5.1)
[2022-04-15] MEDS: guaiFENesin ER 600 MG TAB PO SCH ×2 (10:21→21:10)
[2022-04-15] MEDS: LORazepam 1 MG TAB PO SCH ×2 (10:21→21:59)
[2022-04-15] MEDS: OYSTER SHELL CALCIUM 500 MG TAB PO SCH (10:21)
[2022-04-15] MEDS: PREGABALIN 50 MG CAP (LYRICA) PO SCH ×2 (10:24→21:58)
[2022-04-16] MEDS: IPRATROPIUM 0.5MG/ALBUTEROL 2.5MG INH SOL UD 3ML (DUONEB) NEB SCH ×7 (00:53→23:34)
[2022-04-16] MEDS: SODIUM CHLORIDE 0.9% INJ 10 ML SYR IV PRN ×2 (04:20→21:34)
[2022-04-16] MEDS: oxyCODONE 5MG TAB PO PRN (04:20)
[2022-04-16] MEDS: SODIUM CHLORIDE 0.9% INJ 10 ML SYR IV SCH ×2 (04:57→17:18)
[2022-04-16 06:00] VITALS: BP 118/76
[2022-04-16] MEDS: SYMBICORT 160/4.5MCG INHALER 6GM INH SCH ×2 (07:42→19:07)
[2022-04-16] MEDS: ONDANSETRON 4MG 2ML VIAL IV PRN ×3 (08:39→21:35)
[2022-04-16 08:57] LABS: HEMATOCRIT 34.5 % (36.0-47.0); HEMOGLOBIN 11.1 g/dl (12.0-15.5); MEAN CORPUSCULAR HEMOGLOBIN 31.4 pg (27.0-33.0); MEAN CORPUSCULAR HGB CONC 32.2 g/dl (32.0-36.5); MEAN CORPUSCULAR VOLUME 97.7 fl (80.0-96.0); PLATELET COUNT, AUTOMATED 162 10^3/uL (150-450); RED BLOOD COUNT 3.53 10^6/uL (4.00-5.40); WHITE BLOOD COUNT 13.5 10^3/uL (4.0-10.0)
[2022-04-16] MEDS: SENNA 8.6 MG TAB (SENOKOT) PO SCH ×2 (09:00→20:21)
[2022-04-16] MEDS: PANTOPRAZOLE 40MG TAB (PROTONIX) PO SCH (09:39)
[2022-04-16] MEDS: NICOTINE 21MG/24HR 1 EA TRANSDERMAL TD SCH (09:39)
[2022-04-16] MEDS: ENOXAPARIN 60MG/0.6ML SYRINGE (J1650 PER 10MG) SC SCH ×2 (09:39→20:21)
[2022-04-16 09:40] LABS: CALCIUM LEVEL 8.3 MG/DL (8.5-10.1); CREATININE FOR GFR 1.12 MG/DL (0.55-1.30); GLOMERULAR FILTRATION RATE 54.4 (>51); POTASSIUM SERUM 3.2 MEQ/L (3.5-5.1)
[2022-04-16] MEDS: MORPHINE 30 MG SA TAB PO SCH ×3 (09:40→20:22)
[2022-04-16] MEDS: BENZONATATE 100MG CAPSULE PO SCH ×3 (09:41→20:21)
[2022-04-16] MEDS: PREGABALIN 50 MG CAP (LYRICA) PO SCH ×2 (09:42→22:06)
[2022-04-16] MEDS: LORazepam 1 MG TAB PO SCH ×2 (09:42→22:06)
[2022-04-16] MEDS: guaiFENesin ER 600 MG TAB PO SCH ×2 (09:43→20:21)
[2022-04-16] MEDS: OYSTER SHELL CALCIUM 500 MG TAB PO SCH (09:43)
[2022-04-16] MEDS: ASPIRIN 81MG ENTERIC TABLET PO SCH (09:43)
[2022-04-16] MEDS: FUROSEMIDE 40 MG TAB PO SCH (09:43)
[2022-04-16] MEDS: METOPROLOL TART 12.5 MG PER 1/2 TAB PO SCH (09:45)
[2022-04-16] MEDS ORDERED: POTASSIUM CHLORIDE 10MEQ SR TABLET PO ONE (12:35)
[2022-04-17] MEDS: oxyCODONE 5MG TAB PO PRN (03:23)
[2022-04-17] MEDS: IPRATROPIUM 0.5MG/ALBUTEROL 2.5MG INH SOL UD 3ML (DUONEB) NEB SCH ×4 (03:47→19:12)
[2022-04-17] MEDS: SODIUM CHLORIDE 0.9% INJ 10 ML SYR IV SCH ×2 (04:24→18:00)
[2022-04-17 06:00] VITALS: BP 112/80
[2022-04-17] MEDS: SYMBICORT 160/4.5MCG INHALER 6GM INH SCH ×2 (07:39→19:12)
[2022-04-17] MEDS: NICOTINE 21MG/24HR 1 EA TRANSDERMAL TD SCH (08:32)
[2022-04-17] MEDS: SENNA 8.6 MG TAB (SENOKOT) PO SCH ×2 (08:33→20:59)
[2022-04-17] MEDS: ASPIRIN 81MG ENTERIC TABLET PO SCH (08:33)
[2022-04-17] MEDS: METOPROLOL TART 12.5 MG PER 1/2 TAB PO SCH (08:35)
[2022-04-17] MEDS: MORPHINE 30 MG SA TAB PO SCH ×3 (08:35→21:00)
[2022-04-17] MEDS: FUROSEMIDE 40 MG TAB PO SCH (08:36)
[2022-04-17] MEDS: guaiFENesin ER 600 MG TAB PO SCH ×2 (08:36→20:58)
[2022-04-17] MEDS: OYSTER SHELL CALCIUM 500 MG TAB PO SCH (08:37)
[2022-04-17] MEDS: ONDANSETRON 4MG TAB PO PRN ×2 (08:43→16:26)
[2022-04-17] MEDS: ENOXAPARIN 60MG/0.6ML SYRINGE (J1650 PER 10MG) SC SCH ×2 (08:44→20:58)
[2022-04-17] MEDS: BENZONATATE 100MG CAPSULE PO SCH ×3 (09:00→20:59)
[2022-04-17] MEDS: SODIUM CHLORIDE 0.9% INJ 10 ML SYR IV PRN ×2 (09:45→14:35)
[2022-04-17 09:59] LABS: HEMATOCRIT 32.3 % (36.0-47.0); HEMOGLOBIN 10.4 g/dl (12.0-15.5); MEAN CORPUSCULAR HEMOGLOBIN 31.6 pg (27.0-33.0); MEAN CORPUSCULAR HGB CONC 32.2 g/dl (32.0-36.5); MEAN CORPUSCULAR VOLUME 98.2 fl (80.0-96.0); PLATELET COUNT, AUTOMATED 145 10^3/uL (150-450); RED BLOOD COUNT 3.29 10^6/uL (4.00-5.40); WHITE BLOOD COUNT 13.1 10^3/uL (4.0-10.0)
[2022-04-17] MEDS: PANTOPRAZOLE 40MG TAB (PROTONIX) PO SCH (10:00)
[2022-04-17] MEDS: LORazepam 1 MG TAB PO SCH ×2 (10:00→23:44)
[2022-04-17] MEDS: PREGABALIN 50 MG CAP (LYRICA) PO SCH ×2 (10:00→23:44)
[2022-04-17 10:27] LABS: CALCIUM LEVEL 8.4 MG/DL (8.5-10.1); CREATININE FOR GFR 1.18 MG/DL (0.55-1.30); GLOMERULAR FILTRATION RATE 51.2 (>51); MAGNESIUM LEVEL 1.7 MG/DL (1.8-2.4); POTASSIUM SERUM 3.5 MEQ/L (3.5-5.1)
[2022-04-17] MEDS ORDERED: MAG SULF 1GM/100ML (MAG RUN) 1 GM in IV 1 EA IV ONE (11:20)
[2022-04-17] MEDS ORDERED: CALCIUM CARBONATE 500 MG CHEW U/D PO PRN (12:15)
[2022-04-17] MEDS: PROMETHAZINE 25MG/ML 1ML VIAL IV PRN (13:45)
[2022-04-17 20:50] VITALS: BP 112/77
[2022-04-18] MEDS: IPRATROPIUM 0.5MG/ALBUTEROL 2.5MG INH SOL UD 3ML (DUONEB) NEB SCH ×4 (01:53→20:07)
[2022-04-18 05:01] VITALS: BP 111/77
[2022-04-18] MEDS: oxyCODONE 5MG TAB PO PRN (05:04)
[2022-04-18] MEDS: SODIUM CHLORIDE 0.9% INJ 10 ML SYR IV SCH ×2 (05:50→17:24)
[2022-04-18 06:28] LABS: HEMATOCRIT 35.1 % (36.0-47.0); HEMOGLOBIN 11.2 g/dl (12.0-15.5); MEAN CORPUSCULAR HEMOGLOBIN 31.9 pg (27.0-33.0); MEAN CORPUSCULAR HGB CONC 31.9 g/dl (32.0-36.5); PLATELET COUNT, AUTOMATED 174 10^3/uL (150-450); RED BLOOD COUNT 3.51 10^6/uL (4.00-5.40); WHITE BLOOD COUNT 13.4 10^3/uL (4.0-10.0)
[2022-04-18 07:11] LABS: CALCIUM LEVEL 8.7 MG/DL (8.5-10.1); CREATININE FOR GFR 1.14 MG/DL (0.55-1.30); GLOMERULAR FILTRATION RATE 53.3 (>51); POTASSIUM SERUM 3.4 MEQ/L (3.5-5.1)
[2022-04-18] MEDS: SYMBICORT 160/4.5MCG INHALER 6GM INH SCH ×2 (07:15→20:07)
[2022-04-18] MEDS ORDERED: POTASSIUM CHLORIDE 10MEQ SR TABLET PO ONE (07:55)
[2022-04-18] MEDS: OYSTER SHELL CALCIUM 500 MG TAB PO SCH (08:45)
[2022-04-18] MEDS: guaiFENesin ER 600 MG TAB PO SCH ×2 (08:45→21:10)
[2022-04-18] MEDS: BENZONATATE 100MG CAPSULE PO SCH ×3 (08:45→21:10)
[2022-04-18] MEDS: NICOTINE 21MG/24HR 1 EA TRANSDERMAL TD SCH (08:45)
[2022-04-18] MEDS: ASPIRIN 81MG ENTERIC TABLET PO SCH (08:46)
[2022-04-18] MEDS: PANTOPRAZOLE 40MG TAB (PROTONIX) PO SCH (08:46)
[2022-04-18] MEDS: SENNA 8.6 MG TAB (SENOKOT) PO SCH ×2 (08:46→19:08)
[2022-04-18] MEDS: FUROSEMIDE 40 MG TAB PO SCH (08:46)
[2022-04-18] MEDS: ENOXAPARIN 60MG/0.6ML SYRINGE (J1650 PER 10MG) SC SCH ×2 (08:47→21:11)
[2022-04-18] MEDS: MORPHINE 30 MG SA TAB PO SCH ×3 (08:47→21:10)
[2022-04-18] MEDS: METOPROLOL TART 12.5 MG PER 1/2 TAB PO SCH (08:49)
[2022-04-18] MEDS: LORazepam 1 MG TAB PO SCH ×2 (10:03→22:08)
[2022-04-18] MEDS: PREGABALIN 50 MG CAP (LYRICA) PO SCH ×2 (10:03→22:08)
[2022-04-18] MEDS: ONDANSETRON 4MG TAB PO PRN (11:18)
[2022-04-19] MEDS: oxyCODONE 5MG TAB PO PRN ×2 (00:55→14:10)
[2022-04-19 01:17] VITALS: BP 190/90
[2022-04-19] MEDS: IPRATROPIUM 0.5MG/ALBUTEROL 2.5MG INH SOL UD 3ML (DUONEB) NEB SCH ×4 (02:06→20:51)
[2022-04-19 04:56] VITALS: BP 110/81
[2022-04-19] MEDS: SODIUM CHLORIDE 0.9% INJ 10 ML SYR IV SCH ×2 (06:10→17:24)
[2022-04-19 06:35] LABS: HEMATOCRIT 31.5 % (36.0-47.0); HEMOGLOBIN 10.2 g/dl (12.0-15.5); MEAN CORPUSCULAR HEMOGLOBIN 32.5 pg (27.0-33.0); MEAN CORPUSCULAR HGB CONC 32.4 g/dl (32.0-36.5); MEAN CORPUSCULAR VOLUME 100.3 fl (80.0-96.0); PLATELET COUNT, AUTOMATED 166 10^3/uL (150-450); RED BLOOD COUNT 3.14 10^6/uL (4.00-5.40); WHITE BLOOD COUNT 14.9 10^3/uL (4.0-10.0)
[2022-04-19] MEDS: SYMBICORT 160/4.5MCG INHALER 6GM INH SCH ×2 (07:19→20:51)
[2022-04-19 07:20] LABS: CALCIUM LEVEL 8.4 MG/DL (8.5-10.1); CREATININE FOR GFR 1.13 MG/DL (0.55-1.30); GLOMERULAR FILTRATION RATE 53.8 (>51); POTASSIUM SERUM 3.7 MEQ/L (3.5-5.1)
[2022-04-19] MEDS: SENNA 8.6 MG TAB (SENOKOT) PO SCH ×2 (08:50→21:38)
[2022-04-19] MEDS: guaiFENesin ER 600 MG TAB PO SCH ×2 (09:15→21:38)
[2022-04-19] MEDS: OYSTER SHELL CALCIUM 500 MG TAB PO SCH (09:15)
[2022-04-19] MEDS: ONDANSETRON 4MG TAB PO PRN ×2 (09:16→21:38)
[2022-04-19] MEDS: METOPROLOL TART 12.5 MG PER 1/2 TAB PO SCH (09:16)
[2022-04-19] MEDS: FUROSEMIDE 40 MG TAB PO SCH (09:16)
[2022-04-19] MEDS: PANTOPRAZOLE 40MG TAB (PROTONIX) PO SCH (09:16)
[2022-04-19] MEDS: ASPIRIN 81MG ENTERIC TABLET PO SCH (09:16)
[2022-04-19] MEDS: MORPHINE 30 MG SA TAB PO SCH ×3 (09:17→21:39)
[2022-04-19] MEDS: BENZONATATE 100MG CAPSULE PO SCH ×3 (09:17→21:38)
[2022-04-19] MEDS: ENOXAPARIN 60MG/0.6ML SYRINGE (J1650 PER 10MG) SC SCH ×2 (09:17→21:39)
[2022-04-19] MEDS: NICOTINE 21MG/24HR 1 EA TRANSDERMAL TD SCH (09:18)
[2022-04-19] MEDS: PREGABALIN 50 MG CAP (LYRICA) PO SCH ×2 (10:05→22:33)
[2022-04-19] MEDS: LORazepam 1 MG TAB PO SCH ×2 (10:05→22:32)
[2022-04-19 21:48] VITALS: BP 110/80
[2022-04-20] MEDS: IPRATROPIUM 0.5MG/ALBUTEROL 2.5MG INH SOL UD 3ML (DUONEB) NEB SCH ×4 (02:33→19:05)
[2022-04-20] MEDS: oxyCODONE 5MG TAB PO PRN (03:39)
[2022-04-20] MEDS: SODIUM CHLORIDE 0.9% INJ 10 ML SYR IV SCH ×2 (05:09→16:29)
[2022-04-20 05:26] LABS: HEMOGLOBIN 10.6 g/dl (12.0-15.5); MEAN CORPUSCULAR HEMOGLOBIN 32.3 pg (27.0-33.0); MEAN CORPUSCULAR HGB CONC 33.1 g/dl (32.0-36.5); MEAN CORPUSCULAR VOLUME 97.6 fl (80.0-96.0); PLATELET COUNT, AUTOMATED 184 10^3/uL (150-450); RED BLOOD COUNT 3.28 10^6/uL (4.00-5.40); WHITE BLOOD COUNT 16.6 10^3/uL (4.0-10.0)
[2022-04-20 05:57] LABS: CALCIUM LEVEL 8.3 MG/DL (8.5-10.1); CREATININE FOR GFR 1.29 MG/DL (0.55-1.30); GLOMERULAR FILTRATION RATE 46.2 (>51); POTASSIUM SERUM 3.7 MEQ/L (3.5-5.1)
[2022-04-20 06:00] VITALS: BP 109/75
[2022-04-20] MEDS: ONDANSETRON 4MG TAB PO PRN ×2 (06:50→20:34)
[2022-04-20] MEDS: SYMBICORT 160/4.5MCG INHALER 6GM INH SCH ×2 (08:29→19:05)
[2022-04-20] MEDS: SODIUM CHLORIDE 0.9% INJ 10 ML SYR IV PRN (08:57)
[2022-04-20] MEDS: PROMETHAZINE 25MG/ML 1ML VIAL IV PRN (08:57)
[2022-04-20] MEDS ORDERED: BISACODYL 10 MG SUPP PR PRN (09:25)
[2022-04-20] MEDS: guaiFENesin ER 600 MG TAB PO SCH ×2 (10:00→20:34)
[2022-04-20] MEDS: BENZONATATE 100MG CAPSULE PO SCH ×3 (10:00→20:33)
[2022-04-20] MEDS: OYSTER SHELL CALCIUM 500 MG TAB PO SCH (10:01)
[2022-04-20] MEDS: METOPROLOL TART 12.5 MG PER 1/2 TAB PO SCH (10:01)
[2022-04-20] MEDS: SENNA 8.6 MG TAB (SENOKOT) PO SCH ×2 (10:01→20:34)
[2022-04-20] MEDS: ASPIRIN 81MG ENTERIC TABLET PO SCH (10:01)
[2022-04-20] MEDS: PANTOPRAZOLE 40MG TAB (PROTONIX) PO SCH (10:01)
[2022-04-20] MEDS: FUROSEMIDE 40 MG TAB PO SCH (10:02)
[2022-04-20] MEDS: ENOXAPARIN 60MG/0.6ML SYRINGE (J1650 PER 10MG) SC SCH ×2 (10:02→20:35)
[2022-04-20] MEDS: NICOTINE 21MG/24HR 1 EA TRANSDERMAL TD SCH (10:02)
[2022-04-20] MEDS: PREGABALIN 50 MG CAP (LYRICA) PO SCH ×2 (11:39→22:01)
[2022-04-20] MEDS: LORazepam 1 MG TAB PO SCH ×2 (11:39→22:01)
[2022-04-20] MEDS: MORPHINE 30 MG SA TAB PO SCH ×3 (11:40→20:33)
[2022-04-21] MEDS: IPRATROPIUM 0.5MG/ALBUTEROL 2.5MG INH SOL UD 3ML (DUONEB) NEB SCH ×4 (02:00→19:41)
[2022-04-21] MEDS: oxyCODONE 5MG TAB PO PRN ×2 (02:08→23:51)
[2022-04-21 04:51] VITALS: BP 107/72
[2022-04-21] MEDS: SODIUM CHLORIDE 0.9% INJ 10 ML SYR IV SCH ×2 (05:40→17:32)
[2022-04-21 05:56] LABS: HEMATOCRIT 31.5 % (36.0-47.0); HEMOGLOBIN 10.2 g/dl (12.0-15.5); MEAN CORPUSCULAR HGB CONC 32.4 g/dl (32.0-36.5); MEAN CORPUSCULAR VOLUME 98.7 fl (80.0-96.0); PLATELET COUNT, AUTOMATED 177 10^3/uL (150-450); RED BLOOD COUNT 3.19 10^6/uL (4.00-5.40); WHITE BLOOD COUNT 15.4 10^3/uL (4.0-10.0)
[2022-04-21 06:46] LABS: CALCIUM LEVEL 8.2 MG/DL (8.5-10.1); CREATININE FOR GFR 1.34 MG/DL (0.55-1.30); GLOMERULAR FILTRATION RATE 44.2 (>51); POTASSIUM SERUM 3.9 MEQ/L (3.5-5.1)
[2022-04-21] MEDS: SYMBICORT 160/4.5MCG INHALER 6GM INH SCH ×2 (07:13→19:41)
[2022-04-21] MEDS: SENNA 8.6 MG TAB (SENOKOT) PO SCH (09:00)
[2022-04-21] MEDS: SODIUM CHLORIDE 0.9% INJ 10 ML SYR IV PRN (09:04)
[2022-04-21] MEDS: ONDANSETRON 4MG 2ML VIAL IV PRN (09:04)
[2022-04-21] MEDS: METOPROLOL TART 12.5 MG PER 1/2 TAB PO SCH (10:09)
[2022-04-21] MEDS: BENZONATATE 100MG CAPSULE PO SCH ×3 (10:10→21:08)
[2022-04-21] MEDS: ASPIRIN 81MG ENTERIC TABLET PO SCH (10:10)
[2022-04-21] MEDS: OYSTER SHELL CALCIUM 500 MG TAB PO SCH (10:10)
[2022-04-21] MEDS: FUROSEMIDE 40 MG TAB PO SCH (10:10)
[2022-04-21] MEDS: PANTOPRAZOLE 40MG TAB (PROTONIX) PO SCH (10:10)
[2022-04-21] MEDS: ENOXAPARIN 60MG/0.6ML SYRINGE (J1650 PER 10MG) SC SCH ×2 (10:11→21:08)
[2022-04-21] MEDS: NICOTINE 21MG/24HR 1 EA TRANSDERMAL TD SCH (10:11)
[2022-04-21] MEDS: guaiFENesin ER 600 MG TAB PO SCH ×2 (10:44→21:08)
[2022-04-21] MEDS: PREGABALIN 50 MG CAP (LYRICA) PO SCH ×2 (10:44→22:16)
[2022-04-21] MEDS: LORazepam 1 MG TAB PO SCH ×2 (10:44→22:16)
[2022-04-21] MEDS: MORPHINE 30 MG SA TAB PO SCH ×3 (10:45→21:09)
[2022-04-22] MEDS: IPRATROPIUM 0.5MG/ALBUTEROL 2.5MG INH SOL UD 3ML (DUONEB) NEB SCH ×4 (01:22→19:07)
[2022-04-22 05:35] VITALS: BP 103/73
[2022-04-22] MEDS: SODIUM CHLORIDE 0.9% INJ 10 ML SYR IV SCH ×2 (06:00→17:01)
[2022-04-22] MEDS: SYMBICORT 160/4.5MCG INHALER 6GM INH SCH ×2 (07:26→19:08)
[2022-04-22 09:11] LABS: HEMATOCRIT 32.8 % (36.0-47.0); HEMOGLOBIN 10.8 g/dl (12.0-15.5); MEAN CORPUSCULAR HEMOGLOBIN 32.2 pg (27.0-33.0); MEAN CORPUSCULAR HGB CONC 32.9 g/dl (32.0-36.5); MEAN CORPUSCULAR VOLUME 97.9 fl (80.0-96.0); PLATELET COUNT, AUTOMATED 192 10^3/uL (150-450); RED BLOOD COUNT 3.35 10^6/uL (4.00-5.40); WHITE BLOOD COUNT 17.5 10^3/uL (4.0-10.0)
[2022-04-22] MEDS: ONDANSETRON 4MG TAB PO PRN (09:21)
[2022-04-22] MEDS: ASPIRIN 81MG ENTERIC TABLET PO SCH (09:23)
[2022-04-22] MEDS: PANTOPRAZOLE 40MG TAB (PROTONIX) PO SCH (09:23)
[2022-04-22] MEDS: OYSTER SHELL CALCIUM 500 MG TAB PO SCH (09:23)
[2022-04-22] MEDS: MORPHINE 30 MG SA TAB PO SCH ×3 (09:23→20:55)
[2022-04-22] MEDS: guaiFENesin ER 600 MG TAB PO SCH ×2 (09:23→20:54)
[2022-04-22] MEDS: BENZONATATE 100MG CAPSULE PO SCH ×3 (09:23→20:54)
[2022-04-22] MEDS: FUROSEMIDE 40 MG TAB PO SCH (09:23)
[2022-04-22] MEDS: ENOXAPARIN 60MG/0.6ML SYRINGE (J1650 PER 10MG) SC SCH ×2 (09:24→20:54)
[2022-04-22] MEDS: NICOTINE 21MG/24HR 1 EA TRANSDERMAL TD SCH (09:24)
[2022-04-22] MEDS: METOPROLOL TART 12.5 MG PER 1/2 TAB PO SCH (09:25)
[2022-04-22 09:49] LABS: CALCIUM LEVEL 8.4 MG/DL (8.5-10.1); CREATININE FOR GFR 1.18 MG/DL (0.55-1.30); GLOMERULAR FILTRATION RATE 51.2 (>51); POTASSIUM SERUM 3.6 MEQ/L (3.5-5.1)
[2022-04-22] MEDS: PREGABALIN 50 MG CAP (LYRICA) PO SCH ×2 (10:06→22:13)
[2022-04-22] MEDS: LORazepam 1 MG TAB PO SCH ×2 (10:06→22:12)
[2022-04-22] MEDS: oxyCODONE 5MG TAB PO PRN (12:36)
[2022-04-22] MEDS ORDERED: LORazepam 1 MG TAB PO ONE (16:00)
[2022-04-23] MEDS: oxyCODONE 5MG TAB PO PRN (01:18)
[2022-04-23] MEDS: IPRATROPIUM 0.5MG/ALBUTEROL 2.5MG INH SOL UD 3ML (DUONEB) NEB SCH ×4 (01:31→19:26)
[2022-04-23 05:23] VITALS: BP 106/73
[2022-04-23] MEDS: SODIUM CHLORIDE 0.9% INJ 10 ML SYR IV SCH ×2 (05:56→16:06)
[2022-04-23] MEDS: SYMBICORT 160/4.5MCG INHALER 6GM INH SCH ×2 (07:25→19:27)
[2022-04-23] MEDS: METOPROLOL TART 12.5 MG PER 1/2 TAB PO SCH (09:00)
[2022-04-23] MEDS: OYSTER SHELL CALCIUM 500 MG TAB PO SCH (09:21)
[2022-04-23] MEDS: ASPIRIN 81MG ENTERIC TABLET PO SCH (09:21)
[2022-04-23] MEDS: BENZONATATE 100MG CAPSULE PO SCH ×3 (09:21→21:16)
[2022-04-23] MEDS: guaiFENesin ER 600 MG TAB PO SCH ×2 (09:22→21:16)
[2022-04-23] MEDS: PANTOPRAZOLE 40MG TAB (PROTONIX) PO SCH (09:22)
[2022-04-23] MEDS: MORPHINE 30 MG SA TAB PO SCH ×3 (09:23→21:16)
[2022-04-23] MEDS: FUROSEMIDE 40 MG TAB PO SCH (09:23)
[2022-04-23] MEDS: NICOTINE 21MG/24HR 1 EA TRANSDERMAL TD SCH (09:25)
[2022-04-23] MEDS: ENOXAPARIN 60MG/0.6ML SYRINGE (J1650 PER 10MG) SC SCH ×2 (09:25→21:17)
[2022-04-23] MEDS: ONDANSETRON 4MG TAB PO PRN (09:33)
[2022-04-23] MEDS: PREGABALIN 50 MG CAP (LYRICA) PO SCH ×2 (10:25→22:24)
[2022-04-23] MEDS: LORazepam 1 MG TAB PO SCH ×2 (10:25→22:24)
[2022-04-24] MEDS: IPRATROPIUM 0.5MG/ALBUTEROL 2.5MG INH SOL UD 3ML (DUONEB) NEB SCH ×4 (01:10→19:43)
[2022-04-24] MEDS: oxyCODONE 5MG TAB PO PRN ×2 (01:37→14:38)
[2022-04-24] MEDS: SODIUM CHLORIDE 0.9% INJ 10 ML SYR IV SCH ×2 (05:28→09:14)
[2022-04-24 06:00] VITALS: BP 98/67
[2022-04-24] MEDS: SYMBICORT 160/4.5MCG INHALER 6GM INH SCH ×2 (07:17→19:43)
[2022-04-24] MEDS: METOPROLOL TART 12.5 MG PER 1/2 TAB PO SCH (09:00)
[2022-04-24] MEDS: ONDANSETRON 4MG 2ML VIAL IV PRN ×2 (09:11→22:37)
[2022-04-24] MEDS: ASPIRIN 81MG ENTERIC TABLET PO SCH (09:11)
[2022-04-24] MEDS: PANTOPRAZOLE 40MG TAB (PROTONIX) PO SCH (09:12)
[2022-04-24] MEDS: BENZONATATE 100MG CAPSULE PO SCH ×3 (09:12→21:19)
[2022-04-24] MEDS: guaiFENesin ER 600 MG TAB PO SCH ×2 (09:12→21:19)
[2022-04-24] MEDS: FUROSEMIDE 40 MG TAB PO SCH (09:12)
[2022-04-24] MEDS: OYSTER SHELL CALCIUM 500 MG TAB PO SCH (09:12)
[2022-04-24] MEDS: MORPHINE 30 MG SA TAB PO SCH ×3 (09:13→21:20)
[2022-04-24] MEDS: NICOTINE 21MG/24HR 1 EA TRANSDERMAL TD SCH (09:13)
[2022-04-24] MEDS: ENOXAPARIN 60MG/0.6ML SYRINGE (J1650 PER 10MG) SC SCH ×2 (09:14→21:20)
[2022-04-24] MEDS: PREGABALIN 50 MG CAP (LYRICA) PO SCH ×2 (10:07→22:03)
[2022-04-24] MEDS: LORazepam 1 MG TAB PO SCH ×2 (10:07→22:05)
[2022-04-24] MEDS ORDERED: LORazepam 1 MG TAB PO ONE (19:55)
[2022-04-24] MEDS: SENNA 8.6 MG TAB (SENOKOT) PO PRN (22:03)
[2022-04-24 22:05] VITALS: BP 110/80
[2022-04-24] MEDS: SODIUM CHLORIDE 0.9% INJ 10 ML SYR IV PRN (22:37)
[2022-04-25] VITALS (8 sets, daily range): BP systolic 88–110; BP diastolic 58–75
[2022-04-25] MEDS ORDERED: KETOROLAC 30 MG/ML 1ML VIAL IV ONE (02:05)
[2022-04-25] MEDS: IPRATROPIUM 0.5MG/ALBUTEROL 2.5MG INH SOL UD 3ML (DUONEB) NEB SCH ×4 (02:34→20:23)
[2022-04-25] MEDS ORDERED: carisoprodoL 350 MG TAB PO ONE (02:55)
[2022-04-25] MEDS ORDERED: SODIUM CHLORIDE 0.9% 1000ML IV ONE (02:55)
[2022-04-25] MEDS: SODIUM CHLORIDE 0.9% INJ 10 ML SYR IV PRN (03:25)
[2022-04-25] MEDS ORDERED: carisoprodoL 350 MG TAB PO PRN (03:55)
[2022-04-25] MEDS ORDERED: oxyCODONE 5MG TAB PO ONE (04:30)
[2022-04-25] MEDS: SODIUM CHLORIDE 0.9% INJ 10 ML SYR IV SCH ×2 (04:50→09:59)
[2022-04-25 05:13] LABS: HEMATOCRIT 31.4 % (36.0-47.0); HEMOGLOBIN 10.4 g/dl (12.0-15.5); MEAN CORPUSCULAR HEMOGLOBIN 32.8 pg (27.0-33.0); MEAN CORPUSCULAR HGB CONC 33.1 g/dl (32.0-36.5); MEAN CORPUSCULAR VOLUME 99.1 fl (80.0-96.0); PLATELET COUNT, AUTOMATED 155 10^3/uL (150-450); RED BLOOD COUNT 3.17 10^6/uL (4.00-5.40); WHITE BLOOD COUNT 14.5 10^3/uL (4.0-10.0)
[2022-04-25 05:55] LABS: CALCIUM LEVEL 8.1 MG/DL (8.5-10.1); CREATININE FOR GFR 1.14 MG/DL (0.55-1.30); GLOMERULAR FILTRATION RATE 53.3 (>51); POTASSIUM SERUM 3.1 MEQ/L (3.5-5.1)
[2022-04-25] MEDS ORDERED: NS 1,000 ML IV ONE ×2 (06:30→15:00)
[2022-04-25] MEDS: METOPROLOL TART 12.5 MG PER 1/2 TAB PO SCH (08:09)
[2022-04-25] MEDS: FUROSEMIDE 40 MG TAB PO SCH (08:09)
[2022-04-25] MEDS: MORPHINE 30 MG SA TAB PO SCH (08:09)
[2022-04-25] MEDS: OYSTER SHELL CALCIUM 500 MG TAB PO SCH (09:59)
[2022-04-25] MEDS: PANTOPRAZOLE 40MG TAB (PROTONIX) PO SCH (09:59)
[2022-04-25] MEDS: ASPIRIN 81MG ENTERIC TABLET PO SCH (09:59)
[2022-04-25] MEDS: SENNA 8.6 MG TAB (SENOKOT) PO PRN (09:59)
[2022-04-25] MEDS: BENZONATATE 100MG CAPSULE PO SCH (09:59)
[2022-04-25] MEDS: guaiFENesin ER 600 MG TAB PO SCH ×2 (09:59→21:00)
[2022-04-25] MEDS: ENOXAPARIN 60MG/0.6ML SYRINGE (J1650 PER 10MG) SC SCH ×2 (10:00→21:04)
[2022-04-25] MEDS: SYMBICORT 160/4.5MCG INHALER 6GM INH SCH ×2 (10:00→20:00)
[2022-04-25] MEDS: LORazepam 1 MG TAB PO SCH ×3 (10:00→22:00)
[2022-04-25] MEDS: PREGABALIN 50 MG CAP (LYRICA) PO SCH ×3 (10:00→22:00)
[2022-04-25] MEDS: NICOTINE 21MG/24HR 1 EA TRANSDERMAL TD SCH (10:01)
[2022-04-25] MEDS: ONDANSETRON 4MG 2ML VIAL IV PRN (10:03)
[2022-04-25] MEDS ORDERED: POTASSIUM CHLORIDE 10MEQ SR TABLET PO ONE (13:20)
[2022-04-25] MEDS ORDERED: oxyCODONE 5MG TAB PO PRN (13:25)
[2022-04-25 15:42] LABS: ALBUMIN 2.2 GM/DL (3.2-5.2); BILIRUBIN,DIRECT 0.5 MG/DL (0.0-0.2); BILIRUBIN,TOTAL 0.8 MG/DL (0.2-1.0); TOTAL PROTEIN 4.8 GM/DL (6.4-8.2)
[2022-04-25] MEDS: MORPHINE 15 MG SA TAB PO SCH ×2 (16:00→21:00)
[2022-04-25] MEDS ORDERED: THIAMINE INJection 500 MG in NS 100 ML IV ONE (17:00)
[2022-04-25 21:33] LABS: VENOUS BASE EXCESS 2.5 (-2.0-2.0); VENOUS HCO3 27.9 MEQ/L (23.0-27.0); VENOUS O2 SATURATION 99.3 % (60.0-80.0); VENOUS PARTIAL PRESSURE CO2 47.1 mmHg (38.0-50.0); VENOUS PARTIAL PRESSURE O2 235.2 mmHg (30.0-50.0); VENOUS PH 7.391 UNITS (7.330-7.430); VENOUS STANDARD HCO3 26.7 MEQ/L; VENOUS TOTAL CO2 29.4 MEQ/L (24.0-28.0)
[2022-04-25 22:32] LABS: BLOOD UREA NITROGEN 27 MG/DL (7-18); CALCIUM LEVEL 7.8 MG/DL (8.5-10.1); CARBON DIOXIDE LEVEL 30 MEQ/L (21-32); CHLORIDE LEVEL 95 MEQ/L (98-107); GLOMERULAR FILTRATION RATE > 60.0 (>51); GLUCOSE, FASTING 102 MG/DL (70-100); POTASSIUM SERUM 3.8 MEQ/L (3.5-5.1); SODIUM LEVEL 136 MEQ/L (136-145)
[2022-04-25] MEDS ORDERED: NS 500 ML IV ONE (22:35)
[2022-04-26] MEDS: IPRATROPIUM 0.5MG/ALBUTEROL 2.5MG INH SOL UD 3ML (DUONEB) NEB SCH ×4 (01:11→20:09)
[2022-04-26] MEDS: SODIUM CHLORIDE 0.9% INJ 10 ML SYR IV SCH ×2 (04:17→17:53)
[2022-04-26 04:21] LABS: HEMATOCRIT 27.9 % (36.0-47.0); HEMOGLOBIN 9.3 g/dl (12.0-15.5); MEAN CORPUSCULAR HGB CONC 33.3 g/dl (32.0-36.5); MEAN CORPUSCULAR VOLUME 98.9 fl (80.0-96.0); PLATELET COUNT, AUTOMATED 114 10^3/uL (150-450); RED BLOOD COUNT 2.82 10^6/uL (4.00-5.40); WHITE BLOOD COUNT 11.7 10^3/uL (4.0-10.0)
[2022-04-26 04:56] LABS: ALBUMIN 1.8 GM/DL (3.2-5.2); ALT/SGPT 103 U/L (12-78); BILIRUBIN,TOTAL 0.9 MG/DL (0.2-1.0); BLOOD UREA NITROGEN 27 MG/DL (7-18); CALCIUM LEVEL 7.5 MG/DL (8.5-10.1); CARBON DIOXIDE LEVEL 31 MEQ/L (21-32); CHLORIDE LEVEL 99 MEQ/L (98-107); CREATININE FOR GFR 0.77 MG/DL (0.55-1.30); GLOMERULAR FILTRATION RATE > 60.0 (>51); GLUCOSE, FASTING 78 MG/DL (70-100); MAGNESIUM LEVEL 1.8 MG/DL (1.8-2.4); PHOSPHORUS LEVEL 2.6 MG/DL (2.5-4.9); POTASSIUM SERUM 3.8 MEQ/L (3.5-5.1); SODIUM LEVEL 137 MEQ/L (136-145); TOTAL PROTEIN 4.6 GM/DL (6.4-8.2)
[2022-04-26 06:00] VITALS: BP 102/68
[2022-04-26] MEDS ORDERED: oxyCODONE 5MG TAB PO PRN (07:00)
[2022-04-26] MEDS: SYMBICORT 160/4.5MCG INHALER 6GM INH SCH ×3 (07:33→20:10)
[2022-04-26] MEDS: ONDANSETRON 4MG 2ML VIAL IV PRN ×2 (07:41→12:36)
[2022-04-26] MEDS ORDERED: ISOVUE-370 76% 100ML VIAL As Ordered ONE (08:27)
[2022-04-26] MEDS: PANTOPRAZOLE 40MG TAB (PROTONIX) PO SCH ×2 (09:00→12:37)
[2022-04-26] MEDS: METOPROLOL TART 12.5 MG PER 1/2 TAB PO SCH (09:00)
[2022-04-26] MEDS: OYSTER SHELL CALCIUM 500 MG TAB PO SCH ×2 (09:00→12:39)
[2022-04-26] MEDS: guaiFENesin ER 600 MG TAB PO SCH ×3 (09:00→20:21)
[2022-04-26 10:24] VITALS: BP 100/64
[2022-04-26] MEDS: NICOTINE 21MG/24HR 1 EA TRANSDERMAL TD SCH (12:36)
[2022-04-26] MEDS: ENOXAPARIN 60MG/0.6ML SYRINGE (J1650 PER 10MG) SC SCH ×2 (12:36→20:20)
[2022-04-26] MEDS: ASPIRIN 81MG ENTERIC TABLET PO SCH (12:37)
[2022-04-26] MEDS: MORPHINE 15 MG SA TAB PO SCH ×4 (12:38→21:00)
[2022-04-26] MEDS: LORazepam 0.5 MG TAB PO SCH (12:42)
[2022-04-26] MEDS: PREGABALIN 50 MG CAP (LYRICA) PO SCH (12:42)
[2022-04-26 14:00] VITALS: BP 100/66
[2022-04-26] MEDS: THIAMINE INJection 500 MG in NS 100 ML IV SCH ×2 (14:56→22:12)
[2022-04-26 20:11] VITALS: BP 107/54
[2022-04-26] MEDS: LACTULOSE 20 GM/30 ML SYRUP UD PO SCH (20:21)
[2022-04-27] MEDS: PREGABALIN 50 MG CAP (LYRICA) PO SCH ×3 (00:42→21:57)
[2022-04-27] MEDS: LORazepam 0.5 MG TAB PO SCH ×2 (00:43→11:16)
[2022-04-27] MEDS: IPRATROPIUM 0.5MG/ALBUTEROL 2.5MG INH SOL UD 3ML (DUONEB) NEB SCH ×4 (01:09→20:00)
[2022-04-27 04:55] VITALS: BP 107/67
[2022-04-27] MEDS: SODIUM CHLORIDE 0.9% INJ 10 ML SYR IV SCH ×2 (05:46→18:00)
[2022-04-27] MEDS: THIAMINE INJection 500 MG in NS 100 ML IV SCH ×3 (05:46→21:57)
[2022-04-27 06:03] LABS: HEMATOCRIT 28.8 % (36.0-47.0); HEMOGLOBIN 9.5 g/dl (12.0-15.5); MEAN CORPUSCULAR HEMOGLOBIN 32.4 pg (27.0-33.0); MEAN CORPUSCULAR VOLUME 98.3 fl (80.0-96.0); PLATELET COUNT, AUTOMATED 120 10^3/uL (150-450); RED BLOOD COUNT 2.93 10^6/uL (4.00-5.40); WHITE BLOOD COUNT 12.6 10^3/uL (4.0-10.0)
[2022-04-27] MEDS: SODIUM CHLORIDE 0.9% INJ 10 ML SYR IV PRN (06:24)
[2022-04-27 06:47] LABS: ALBUMIN 1.9 GM/DL (3.2-5.2); ALT/SGPT 155 U/L (12-78); BILIRUBIN,TOTAL 1.3 MG/DL (0.2-1.0); BLOOD UREA NITROGEN 25 MG/DL (7-18); CALCIUM LEVEL 7.5 MG/DL (8.5-10.1); CARBON DIOXIDE LEVEL 28 MEQ/L (21-32); CHLORIDE LEVEL 98 MEQ/L (98-107); GLOMERULAR FILTRATION RATE > 60.0 (>51); GLUCOSE, FASTING 76 MG/DL (70-100); MAGNESIUM LEVEL 1.9 MG/DL (1.8-2.4); POTASSIUM SERUM 3.3 MEQ/L (3.5-5.1); SODIUM LEVEL 134 MEQ/L (136-145); TOTAL PROTEIN 4.3 GM/DL (6.4-8.2)
[2022-04-27 06:52] LABS: ALBUMIN 1.9 GM/DL (3.2-5.2); BILIRUBIN,DIRECT 0.8 MG/DL (0.0-0.2); BILIRUBIN,TOTAL 1.2 MG/DL (0.2-1.0); TOTAL PROTEIN 4.3 GM/DL (6.4-8.2)
[2022-04-27] MEDS ORDERED: POTASSIUM CHLORIDE 10MEQ SR TABLET PO ONE (07:15)
[2022-04-27] MEDS: SYMBICORT 160/4.5MCG INHALER 6GM INH SCH ×2 (07:55→20:11)
[2022-04-27 09:00] VITALS: BP 99/74
[2022-04-27] MEDS: OYSTER SHELL CALCIUM 500 MG TAB PO SCH (09:00)
[2022-04-27] MEDS: LACTULOSE 20 GM/30 ML SYRUP UD PO SCH ×2 (09:00→18:10)
[2022-04-27] MEDS: METOPROLOL TART 12.5 MG PER 1/2 TAB PO SCH (09:00)
[2022-04-27] MEDS ORDERED: MORPHINE 15 MG SA TAB PO SCH (09:00)
[2022-04-27] MEDS: ONDANSETRON 4MG 2ML VIAL IV PRN (09:00)
[2022-04-27 12:25] VITALS: BP 99/74
[2022-04-27] MEDS ORDERED: LR 1,000 ML IV ONE (12:35)
[2022-04-27] MEDS: guaiFENesin ER 600 MG TAB PO SCH ×2 (13:05→21:57)
[2022-04-27] MEDS: ENOXAPARIN 60MG/0.6ML SYRINGE (J1650 PER 10MG) SC SCH ×2 (13:05→21:58)
[2022-04-27] MEDS: ASPIRIN 81MG ENTERIC TABLET PO SCH (13:05)
[2022-04-27] MEDS: NICOTINE 21MG/24HR 1 EA TRANSDERMAL TD SCH (13:05)
[2022-04-27] MEDS: PANTOPRAZOLE 40MG TAB (PROTONIX) PO SCH (13:05)
[2022-04-27] MEDS: LR 1,000 ML IV SCH ×2 (13:20→21:59)
[2022-04-27 13:24] VITALS: BP 109/77
[2022-04-27] MEDS ORDERED: LORazepam 0.5 MG TAB PO PRN (13:40)
[2022-04-27 13:41] LABS: ABG BASE EXCESS 1.5 (-2.0-2.0); ABG HCO3 23.7 MEQ/L (22.0-26.0); ABG O2 SATURATION 98.7 % (95.0-99.0); ABG PARTIAL PRESSURE CO2 29.1 mmHg (35.0-45.0); ABG PARTIAL PRESSURE O2 123.8 mmHg (75.0-100.0); ABG STANDARD HCO3 25.9 MEQ/L (22.0-26.0); ABG TOTAL CO2 24.6 MEQ/L (22.0-29.0); ABG pH (ARTERIAL) 7.528 UNITS (7.350-7.450)
[2022-04-27] MEDS: PIPERACILLIN/TAZOBACTAM SOD 3.375 GM in D5W MINI-BAG PLUS 50 ML IV SCH ×2 (14:05→19:04)
[2022-04-27] MEDS ORDERED: VANCOMYCIN HCL 750 MG, VIAL MATE ADAPTER 1 EACH in D5W 250 ML IV ONE (15:00)
[2022-04-27 15:24] LABS: INR 1.09; PROTHROMBIN TIME 14.5 SECONDS (12.7-14.5)
[2022-04-27 15:25] LABS: PARTIAL THROMBOPLASTIN TIME 43.8 SECONDS (25.9-37.0)
[2022-04-27 16:00] VITALS: BP 108/80
[2022-04-27] MEDS ORDERED: VANCOMYCIN HCL 500 MG in D5W MINI-BAG PLUS 100 ML IV ONE (16:00)
[2022-04-27 17:17] LABS: APPEARANCE, URINE MANUAL HAZY (CLEAR); COLOR, URINE MANUAL AMBER (YELLOW)
[2022-04-27 17:20] LABS: BILIRUBIN, URINE MANUAL NEGATIVE (NEGATIVE); BLOOD URINE MANUAL POSITIVE (NEGATIVE); GLUCOSE, URINE (UA) MANUAL NEGATIVE (NEGATIVE); KETONE, URINE MANUAL NEGATIVE (NEGATIVE); LEUKOCYTE ESTERASE, URINE MAN POSITIVE (NEGATIVE); NITRITE, URINE MANUAL POSITIVE (NEGATIVE); PROTEIN, URINE MANUAL 2+ mg/dL (NEGATIVE); UROBILINOGEN, URINE MANUAL 1 MG mg/dl (NORMAL)
[2022-04-27 17:34] LABS: RBC, URINE TNTC /hpf (0-3); SQUAMOUS EPITHELIAL CELL URINE SMALL AMOUNT /hpf (SMALL AMT); WBC, URINE 30-40 /hpf (0-3)
[2022-04-27 17:35] LABS: AMORPHOUS SEDIMENT, URINE MOD AMOUNT (NEGATIVE); BACTERIA, URINE LARGE AMOUNT; HYALINE CAST, URINE NONE SEEN /lpf (0-1); MUCUS, URINE SMALL AMOUNT (NEGATIVE)
[2022-04-27 20:47] VITALS: BP 100/65
[2022-04-28 00:49] VITALS: BP 101/69
[2022-04-28] MEDS ORDERED: VANCOMYCIN HCL 750 MG, VIAL MATE ADAPTER 1 EACH in NS 250 ML IV SCH ×2 (03:00→21:00)
[2022-04-28 04:00] VITALS: BP 101/71
[2022-04-28] MEDS: PIPERACILLIN/TAZOBACTAM SOD 3.375 GM in D5W MINI-BAG PLUS 50 ML IV SCH ×3 (04:11→13:00)
[2022-04-28 05:13] LABS: HEMATOCRIT 26.9 % (36.0-47.0); HEMOGLOBIN 8.7 g/dl (12.0-15.5); MEAN CORPUSCULAR HEMOGLOBIN 32.1 pg (27.0-33.0); MEAN CORPUSCULAR HGB CONC 32.3 g/dl (32.0-36.5); MEAN CORPUSCULAR VOLUME 99.3 fl (80.0-96.0); PLATELET COUNT, AUTOMATED 108 10^3/uL (150-450); RED BLOOD COUNT 2.71 10^6/uL (4.00-5.40); WHITE BLOOD COUNT 11.5 10^3/uL (4.0-10.0)
[2022-04-28] MEDS: SODIUM CHLORIDE 0.9% INJ 10 ML SYR IV SCH ×2 (06:00→17:51)
[2022-04-28 06:21] LABS: ALBUMIN 1.7 GM/DL (3.2-5.2); ALT/SGPT 151 U/L (12-78); BILIRUBIN,TOTAL 1.6 MG/DL (0.2-1.0); BLOOD UREA NITROGEN 23 MG/DL (7-18); CALCIUM LEVEL 7.1 MG/DL (8.5-10.1); CARBON DIOXIDE LEVEL 21 MEQ/L (21-32); CHLORIDE LEVEL 100 MEQ/L (98-107); CREATININE FOR GFR 0.94 MG/DL (0.55-1.30); GLOMERULAR FILTRATION RATE > 60.0 (>51); GLUCOSE, FASTING 71 MG/DL (70-100); MAGNESIUM LEVEL 1.6 MG/DL (1.8-2.4); PHOSPHORUS LEVEL 2.6 MG/DL (2.5-4.9); POTASSIUM SERUM 3.7 MEQ/L (3.5-5.1); SODIUM LEVEL 133 MEQ/L (136-145)
[2022-04-28 06:30] LABS: ANISOCYTOSIS 1+; HYPOCHROMASIA 2+; LYMPHOCYTES 8 % (16-44); MONOCYTES 5 % (0-5); NEUTROPHILS 87 % (28-66); POLYCHROMASIA 1+
[2022-04-28 06:40] LABS: PLATELET ESTIMATE DECREASED (NORMAL)
[2022-04-28] MEDS: THIAMINE INJection 500 MG in NS 100 ML IV SCH ×2 (07:24→14:00)
[2022-04-28 07:56] VITALS: BP 96/68
[2022-04-28] MEDS: SYMBICORT 160/4.5MCG INHALER 6GM INH SCH ×2 (08:00→20:00)
[2022-04-28] MEDS: IPRATROPIUM 0.5MG/ALBUTEROL 2.5MG INH SOL UD 3ML (DUONEB) NEB SCH ×2 (08:33→13:54)
[2022-04-28] MEDS: METOPROLOL TART 12.5 MG PER 1/2 TAB PO SCH (09:00)
[2022-04-28] MEDS: ASPIRIN 81MG ENTERIC TABLET PO SCH (09:00)
[2022-04-28] MEDS: ENOXAPARIN 60MG/0.6ML SYRINGE (J1650 PER 10MG) SC SCH (09:00)
[2022-04-28] MEDS: NICOTINE 21MG/24HR 1 EA TRANSDERMAL TD SCH (09:00)
[2022-04-28] MEDS: guaiFENesin ER 600 MG TAB PO SCH (09:00)
[2022-04-28] MEDS: PANTOPRAZOLE 40MG TAB (PROTONIX) PO SCH (09:00)
[2022-04-28] MEDS: LACTULOSE 20 GM/30 ML SYRUP UD PO SCH ×3 (09:00→21:00)
[2022-04-28] MEDS: LR 1,000 ML IV SCH (09:20)
[2022-04-28] MEDS: PREGABALIN 50 MG CAP (LYRICA) PO SCH ×2 (09:58→21:05)
[2022-04-28 12:00] VITALS: BP 109/76
[2022-04-28] MEDS: MAG SULF 1GM/100ML (MAG RUN) 1 GM in IV 1 EA IV SCH ×2 (12:41→15:49)
[2022-04-28 15:27] VITALS: BP 96/65
[2022-04-28] MEDS ORDERED: MORPHINE 2 MG/ML 1ML VIAL IV PRN (17:50)
[2022-04-28] MEDS ORDERED: LORazepam 2 MG/ML VIAL IV PRN (17:50)
[2022-04-28] MEDS: IPRATROPIUM 0.5MG/ALBUTEROL 2.5MG INH SOL UD 3ML (DUONEB) NEB PRN (20:08)
[2022-04-29] MEDS: SODIUM CHLORIDE 0.9% INJ 10 ML SYR IV SCH ×2 (06:43→18:27)
[2022-04-29] MEDS: SYMBICORT 160/4.5MCG INHALER 6GM INH SCH ×2 (08:00→20:00)
[2022-04-29] MEDS: APIXABAN 5 MG TAB (ELIQUIS) PO SCH ×2 (09:00→20:51)
[2022-04-29] MEDS: ASPIRIN 81MG ENTERIC TABLET PO SCH (09:00)
[2022-04-29] MEDS: METOPROLOL TART 12.5 MG PER 1/2 TAB PO SCH (09:00)
[2022-04-29] MEDS: FUROSEMIDE 10MG PER 1/2 TABLET PO SCH (09:00)
[2022-04-29] MEDS: LINEZOLID 600MG TABLET (ZYVOX) PO SCH ×2 (09:00→20:51)
[2022-04-29] MEDS: NICOTINE 21MG/24HR 1 EA TRANSDERMAL TD SCH (09:00)
[2022-04-29] MEDS: LACTULOSE 20 GM/30 ML SYRUP UD PO SCH ×3 (09:00→19:57)
[2022-04-29] MEDS: PREGABALIN 50 MG CAP (LYRICA) PO SCH ×2 (10:00→20:51)
[2022-04-29] MEDS: ONDANSETRON 4MG 2ML VIAL IV PRN ×2 (11:43→21:33)
[2022-04-29] MEDS ORDERED: SIMETHICONE 80MG CHEW TAB PO PRN (13:15)
[2022-04-29] MEDS ORDERED: ANALGESIC BALM CRM 3OZ TOP PRN (14:55)
[2022-04-29] MEDS ORDERED: ONDANSETRON 4MG 2ML VIAL IV ONE (15:00)
[2022-04-29] MEDS ORDERED: LOPERAMIDE 2 MG CAPLET PO ONE (20:20)
[2022-04-30] MEDS: SODIUM CHLORIDE 0.9% INJ 10 ML SYR IV SCH ×2 (05:06→17:46)
[2022-04-30] MEDS: SYMBICORT 160/4.5MCG INHALER 6GM INH SCH ×2 (07:52→19:34)
[2022-04-30] MEDS ORDERED: LIDOCAINE 2% 5ML JELLY UROJET As Ordered ONE (09:11)
[2022-04-30] MEDS: MORPHINE 10MG/0.5ML ORAL CONCENTRATE SOLUTION U/D SL PRN (09:23)
[2022-04-30] MEDS: LORazepam 1 MG TAB PO PRN (09:25)
[2022-04-30] MEDS ORDERED: LOPERAMIDE 2 MG CAPLET PO ONE (10:00)
[2022-04-30] MEDS: PREGABALIN 50 MG CAP (LYRICA) PO SCH ×2 (11:30→22:00)
[2022-04-30] MEDS: METOPROLOL TART 12.5 MG PER 1/2 TAB PO SCH (11:30)
[2022-04-30] MEDS: NICOTINE 21MG/24HR 1 EA TRANSDERMAL TD SCH (11:30)
[2022-04-30] MEDS: APIXABAN 5 MG TAB (ELIQUIS) PO SCH (11:30)
[2022-04-30] MEDS: FUROSEMIDE 10MG PER 1/2 TABLET PO SCH (11:30)
[2022-04-30] MEDS: ASPIRIN 81MG ENTERIC TABLET PO SCH (11:30)
[2022-04-30] MEDS: LINEZOLID 600MG TABLET (ZYVOX) PO SCH ×2 (11:30→21:00)
[2022-04-30] MEDS: LACTULOSE 20 GM/30 ML SYRUP UD PO SCH (11:30)
[2022-04-30] MEDS: LOPERAMIDE 2 MG CAPLET PO PRN ×2 (13:54→17:47)
[2022-05-01] MEDS: ONDANSETRON 4MG 2ML VIAL IV PRN ×2 (02:51→09:30)
[2022-05-01] MEDS: SODIUM CHLORIDE 0.9% INJ 10 ML SYR IV SCH ×2 (02:51→18:16)
[2022-05-01] MEDS: SYMBICORT 160/4.5MCG INHALER 6GM INH SCH ×2 (07:32→20:00)
[2022-05-01] MEDS: LINEZOLID 600MG TABLET (ZYVOX) PO SCH ×2 (09:00→20:59)
[2022-05-01] MEDS: NICOTINE 21MG/24HR 1 EA TRANSDERMAL TD SCH (09:00)
[2022-05-01] MEDS: FUROSEMIDE 10MG PER 1/2 TABLET PO SCH (09:30)
[2022-05-01] MEDS: PREGABALIN 50 MG CAP (LYRICA) PO SCH ×2 (10:00→21:00)
[2022-05-01] MEDS: LORazepam 1 MG TAB PO PRN (13:41)
[2022-05-01] MEDS ORDERED: LIDOCAINE 1% MDV 20ML VIAL As Ordered ONE (13:52)
[2022-05-01 14:10] VITALS: BP 101/62
[2022-05-01] MEDS: LOPERAMIDE 2 MG CAPLET PO PRN (18:16)
[2022-05-02] MEDS: IPRATROPIUM 0.5MG/ALBUTEROL 2.5MG INH SOL UD 3ML (DUONEB) NEB PRN (00:05)
[2022-05-02] MEDS: SODIUM CHLORIDE 0.9% INJ 10 ML SYR IV SCH ×2 (06:32→17:29)
[2022-05-02] MEDS: FUROSEMIDE 10MG PER 1/2 TABLET PO SCH (07:43)
[2022-05-02] MEDS: NICOTINE 21MG/24HR 1 EA TRANSDERMAL TD SCH (07:44)
[2022-05-02] MEDS: PREGABALIN 50 MG CAP (LYRICA) PO SCH ×2 (07:44→21:16)
[2022-05-02] MEDS: LINEZOLID 600MG TABLET (ZYVOX) PO SCH (07:44)
[2022-05-02] MEDS: SYMBICORT 160/4.5MCG INHALER 6GM INH SCH ×2 (08:00→20:00)
[2022-05-02] MEDS: ONDANSETRON 4MG 2ML VIAL IV PRN ×2 (10:24→17:29)
[2022-05-02] MEDS: SODIUM CHLORIDE 0.9% INJ 10 ML SYR IV PRN (10:24)
[2022-05-02] MEDS ORDERED: PINK BISMUTH SUSP 524MG/30ML ORAL SYRINGE PO PRN (11:15)
[2022-05-02] MEDS ORDERED: LOMOTIL 2.5MG/0.025MG TABLET PO ONE (11:20)
[2022-05-02] MEDS: LACTOBACILLUS ACIDOPHILUS CAP (BACID) PO SCH (12:01)
[2022-05-02] MEDS: LORazepam 1 MG TAB PO PRN (12:22)
[2022-05-02] MEDS ORDERED: PROCHLORPERAZINE 10MG 2ML VIAL IM ONE (13:00)
[2022-05-03] MEDS: SODIUM CHLORIDE 0.9% INJ 10 ML SYR IV SCH ×2 (05:49→17:40)
[2022-05-03] MEDS: SYMBICORT 160/4.5MCG INHALER 6GM INH SCH ×2 (08:00→19:03)
[2022-05-03] MEDS: ONDANSETRON 4MG 2ML VIAL IV PRN (08:02)
[2022-05-03] MEDS: FUROSEMIDE 10MG PER 1/2 TABLET PO SCH (08:24)
[2022-05-03] MEDS: LACTOBACILLUS ACIDOPHILUS CAP (BACID) PO SCH (08:24)
[2022-05-03] MEDS: NICOTINE 21MG/24HR 1 EA TRANSDERMAL TD SCH (08:24)
[2022-05-03] MEDS: PREGABALIN 50 MG CAP (LYRICA) PO SCH ×2 (09:28→20:12)
[2022-05-03] MEDS: LORazepam 1 MG TAB PO PRN ×2 (14:21→17:40)
[2022-05-04] MEDS: LORazepam 1 MG TAB PO PRN (03:59)
[2022-05-04] MEDS: SODIUM CHLORIDE 0.9% INJ 10 ML SYR IV SCH ×2 (06:41→16:16)
[2022-05-04] MEDS: SYMBICORT 160/4.5MCG INHALER 6GM INH SCH ×2 (07:00→20:00)
[2022-05-04] MEDS: NICOTINE 21MG/24HR 1 EA TRANSDERMAL TD SCH (08:06)
[2022-05-04] MEDS: FUROSEMIDE 10MG PER 1/2 TABLET PO SCH (08:06)
[2022-05-04] MEDS: PREGABALIN 50 MG CAP (LYRICA) PO SCH ×2 (08:06→20:39)
[2022-05-04] MEDS: LACTOBACILLUS ACIDOPHILUS CAP (BACID) PO SCH (08:06)
[2022-05-04] MEDS: MORPHINE 10MG/0.5ML ORAL CONCENTRATE SOLUTION U/D SL PRN (10:28)
[2022-05-04] MEDS: ONDANSETRON 4MG 2ML VIAL IV PRN (20:35)
[2022-05-04] MEDS: SODIUM CHLORIDE 0.9% INJ 10 ML SYR IV PRN (20:35)
[2022-05-05] MEDS: MORPHINE 10MG/0.5ML ORAL CONCENTRATE SOLUTION U/D SL PRN ×2 (00:20→03:53)
[2022-05-05] MEDS: METOCLOPRAMIDE INJ 10MG/2ML VIAL (J2765 PER 1) IV PRN ×4 (00:21→23:08)
[2022-05-05] MEDS ORDERED: MORPHINE 4 MG/ML 1ML VIAL/SYRINGE IV ONE (04:25)
[2022-05-05] MEDS: ONDANSETRON 4MG 2ML VIAL IV PRN ×3 (04:28→20:02)
[2022-05-05] MEDS: SODIUM CHLORIDE 0.9% INJ 10 ML SYR IV SCH ×2 (04:29→18:00)
[2022-05-05] MEDS: SYMBICORT 160/4.5MCG INHALER 6GM INH SCH ×2 (08:00→20:00)
[2022-05-05] MEDS: MORPHINE 4 MG/ML 1ML VIAL/SYRINGE IV PRN ×5 (08:21→23:09)
[2022-05-05] MEDS: SODIUM CHLORIDE 0.9% INJ 10 ML SYR IV PRN ×3 (08:22→16:37)
[2022-05-05] MEDS: LACTOBACILLUS ACIDOPHILUS CAP (BACID) PO SCH (09:00)
[2022-05-05] MEDS: FUROSEMIDE 10MG PER 1/2 TABLET PO SCH (09:00)
[2022-05-05] MEDS: NICOTINE 21MG/24HR 1 EA TRANSDERMAL TD SCH (09:00)
[2022-05-05] MEDS: PREGABALIN 50 MG CAP (LYRICA) PO SCH ×2 (10:00→21:08)
[2022-05-06] MEDS: MORPHINE 4 MG/ML 1ML VIAL/SYRINGE IV PRN ×2 (03:50→07:37)
[2022-05-06] MEDS: ONDANSETRON 4MG 2ML VIAL IV PRN (03:50)
[2022-05-06] MEDS: SODIUM CHLORIDE 0.9% INJ 10 ML SYR IV SCH (05:38)
[2022-05-06] MEDS: METOCLOPRAMIDE INJ 10MG/2ML VIAL (J2765 PER 1) IV PRN (07:36)
[2022-05-06] MEDS: SYMBICORT 160/4.5MCG INHALER 6GM INH SCH (07:37)
[2022-05-06] MEDS: FUROSEMIDE 10MG PER 1/2 TABLET PO SCH (09:00)
[2022-05-06] MEDS: NICOTINE 21MG/24HR 1 EA TRANSDERMAL TD SCH (09:00)
[2022-05-06] MEDS: LACTOBACILLUS ACIDOPHILUS CAP (BACID) PO SCH (09:00)
[2022-05-06] MEDS: PREGABALIN 50 MG CAP (LYRICA) PO SCH (10:00)
== END 2022-05-06 10:50 | disposition expired | DRG 947 ==
LOC: EDBD 08:00 → M ED 08:00 → M ED INP 23:34 → ENRESERV 03-25 00:18 → M MSPAV 03-25 01:56 → M PCU 04-27 13:18 → M MS5PR 04-29 17:47
PROVIDERS: ADMIT Internal Medicine; ATTEND Internal Medicine
PROC: 02HV33Z Insertion of Infusion Device into Superior Vena Cava, Percutaneous Approach (ICD-10-PCS; principal; 2022-03-24 14:18)
PROC: BW24YZZ Computerized Tomography (CT Scan) of Chest and Abdomen using Other Contrast (ICD-10-PCS; 2022-03-31)
PROC: B246ZZZ Ultrasonography of Right and Left Heart (ICD-10-PCS; 2022-03-31)
PROC: 0W9B3ZZ Drainage of Left Pleural Cavity, Percutaneous Approach (ICD-10-PCS; 2022-03-31)
PROC: 30233N1 Transfusion of Nonautologous Red Blood Cells into Peripheral Vein, Percutaneous Approach (ICD-10-PCS; 2022-04-02)
PROC: 0W9G3ZZ Drainage of Peritoneal Cavity, Percutaneous Approach (ICD-10-PCS; 2022-05-01)
DX: G89.18 Other acute postprocedural pain (principal); I21.A1 Myocardial infarction type 2; J18.9 Pneumonia, unspecified organism; K72.00 Acute and subacute hepatic failure without coma; I97.638 Postprocedural hematoma of a circulatory system organ or structure following other circulatory system procedure; C78.7 Secondary malignant neoplasm of liver and intrahepatic bile duct; C79.01 Secondary malignant neoplasm of right kidney and renal pelvis; C79.02 Secondary malignant neoplasm of left kidney and renal pelvis; C79.51 Secondary malignant neoplasm of bone; J91.0 Malignant pleural effusion; J93.83 Other pneumothorax; N13.30 Unspecified hydronephrosis; C79.70 Secondary malignant neoplasm of unspecified adrenal gland; C78.00 Secondary malignant neoplasm of unspecified lung; E46 Unspecified protein-calorie malnutrition; J44.0 Chronic obstructive pulmonary disease with (acute) lower respiratory infection; N39.0 Urinary tract infection, site not specified; B37.0 Candidal stomatitis; J44.1 Chronic obstructive pulmonary disease with (acute) exacerbation; I74.10 Embolism and thrombosis of unspecified parts of aorta; D68.32 Hemorrhagic disorder due to extrinsic circulating anticoagulants; I74.3 Embolism and thrombosis of arteries of the lower extremities; E87.2 Acidosis; R18.8 Other ascites; Z86.718 Personal history of other venous thrombosis and embolism; I73.9 Peripheral vascular disease, unspecified; Z66 Do not resuscitate; C53.9 Malignant neoplasm of cervix uteri, unspecified; F17.200 Nicotine dependence, unspecified, uncomplicated; F41.9 Anxiety disorder, unspecified; F19.21 Other psychoactive substance dependence, in remission; Z79.01 Long term (current) use of anticoagulants; Z79.2 Long term (current) use of antibiotics; Z79.899 Other long term (current) drug therapy; Z88.8 Allergy status to other drugs, medicaments and biological substances; Z20.822 Contact with and (suspected) exposure to COVID-19; Z92.3 Personal history of irradiation; Z92.21 Personal history of antineoplastic chemotherapy; B37.2 Candidiasis of skin and nail; Z71.6 Tobacco abuse counseling; N28.89 Other specified disorders of kidney and ureter; Z96.0 Presence of urogenital implants; S82.891D Other fracture of right lower leg, subsequent encounter for closed fracture with routine healing; R31.0 Gross hematuria; B95.2 Enterococcus as the cause of diseases classified elsewhere; D50.0 Iron deficiency anemia secondary to blood loss (chronic); M79.662 Pain in left lower leg; D69.6 Thrombocytopenia, unspecified; R74.01 Elevation of levels of liver transaminase levels